=== PATIENT | female | born 1980 ===

== ENCOUNTER 2017-08-31 10:27 | Emergency (ER) | payer SELFPAY ==
[2017-08-31 10:43] VITALS: O2SAT 100
[2017-08-31] MEDS ORDERED: Sodium Chloride 0.9% 1,000 ML IV ONE (11:13)
[2017-08-31 11:23] LABS: BASO # 0.1 K/uL (0.0-0.2); BASO % 0.9 % (0.0-2.0); EOS # 0.1 K/uL (0.0-0.7); EOS % 1.3 % (0.0-4.0); HEMATOCRIT 32.4 % (34.0-47.0); LYMPH # 1.8 K/uL (1.0-4.3); LYMPH % 29.4 % (20.0-40.0); MEAN CELL VOLUME 65.8 fL (81.0-99.0); MEAN CORPUSCULAR HEMOGLOBIN 20.4 pg (27.0-31.0); MEAN PLATELET VOLUME 9.6 fL (7.2-11.7); MONO # 0.6 K/uL (0.0-0.8); MONO % 9.9 % (0.0-10.0); RED CELL DISTRIBUTION WIDTH 17.2 % (11.5-14.5); WHITE BLOOD COUNT 6.1 K/uL (4.8-10.8)
[2017-08-31] MEDS ORDERED: Sodium Chloride 0.9% 1,000 ML ONE (11:26)
[2017-08-31 11:39] LABS: ALKALINE PHOSPHATASE 91 U/L (38-126); ALT/SGPT 45 U/L (9-52); AST/SGOT 33 U/L (14-36); BILIRUBIN,TOTAL 0.6 mg/dL (0.2-1.3); BLOOD UREA NITROGEN 10 mg/dL (7-17); CALCIUM 8.1 mg/dl (8.6-10.4); CARBON DIOXIDE 27 mmol/L (22-30); CHLORIDE 103 mmol/L (98-107); GFR AFRICAN-AMERICAN > 60; GLUCOSE,RANDOM 93 mg/dL (65-105); RBC URINE 1 /hpf (0-3); SODIUM 138 mmol/L (132-148); TOTAL PROTEIN 8.2 g/dL (6.3-8.3); URINE BACTERIA RARE (<OCC); URINE BILIRUBIN NEGATIVE (NEGATIVE); URINE BLOOD NEGATIVE (NEGATIVE); URINE COLOR Yellow (YELLOW); URINE GLUCOSE (UA) NORMAL (Normal); URINE KETONE NEGATIVE (NEGATIVE); URINE LEUKOCYTE ESTERASE NEG Leu/uL (Negative); URINE PROTEIN NEGATIVE (NEGATIVE); URINE UROBILINOGEN NORMAL mg/dL (0.2-1.0); WBC URINE < 1 /hpf (0-5)
--- NOTE | 2017-08-31 12:37 | US ---
EXAM: US Abdomen Limited, Right Upper Quadrant CLINICAL HISTORY: 37 years old, female; Pain; Abdominal pain; Generalized; Prior surgery; Surgery date: 3-7 days post-operative; Surgery type: Gallbladder; Additional info: Ruq pain, R/O cbd stone TECHNIQUE: Real-time ultrasound of the right upper quadrant with image documentation. 41 images are submitted. COMPARISON: No relevant prior studies available. FINDINGS: Artifacts: Limited due to bowel gas shadowing. Limited due to shadowing from the ribs. Liver: The liver measures 13.98 cm. Limited evaluation of liver due to shadowing. There is hepatic pedal flow in the portal vein. Gallbladder: Cholecystectomy. Common bile duct: The common bile duct measures 3 mm which is normal. No stones. No dilation. Pancreas: The pancreas is not well-seen. Right kidney: The right kidney measures 11.88 x 4.10 x 4.78 cm. No stones. No hydronephrosis. Aorta: The proximal aorta measures 1.7 cm. Inferior vena cava: IVC is seen. IMPRESSION: No acute findings.
[2017-08-31] MEDS ORDERED: Magnesium Citrate Oral SOL (300 ml) PO ONE (13:42)
--- NOTE | 2017-08-31 13:47 | C.PDOC ---
History Of Present Illness 37-year-old female presents to the emergency department with complaints of epigastric abdominal pain for the past four days that radiates to the right upper-quadrant. She states pain has been gradually worsening, and is associated with constipation x3 days. Patient denies any nausea/vomiting, diarrhea, dysuria/hematuria, chest pain, SOB. Time Seen by Provider: 08/31/17 10:43 Chief Complaint (Nursing): Female Genitourinary History Per: Patient History/Exam Limitations: no limitations Onset/Duration Of Symptoms: Days Severity: Moderate Location Of Pain/Discomfort: Epigastric Quality Of Discomfort: "Pain" Past Medical History Reviewed: Historical Data, Nursing Documentation, Vital Signs Vital Signs: Last Vital Signs Temp 98.4 F 08/31/17 14:01 Pulse 71 08/31/17 14:01 Resp 20 08/31/17 14:01 BP 115/74 08/31/17 14:01 Pulse Ox 100 08/31/17 15:08 - Medical History PMH: Depression, Rheumatoid Arthritis Surgical History: Cholecystectomy Family History: States: No Known Family Hx - Social History Hx Tobacco Use: No Hx Alcohol Use: No Hx Substance Use: No - Immunization History Hx Tetanus Toxoid Vaccination: No Hx Influenza Vaccination: No Hx Pneumococcal Vaccination: No Review Of Systems Except As Marked, All Systems Reviewed And Found Negative. Constitutional: Negative for: Fever, Chills Cardiovascular: Negative for: Chest Pain, Palpitations Respiratory: Negative for: Cough, Shortness of Breath Gastrointestinal: Positive for: Abdominal Pain, Constipation. Negative for: Nausea, Vomiting, Diarrhea Genitourinary: Negative for: Dysuria, Hematuria, Vaginal Discharge, Vaginal Bleeding Musculoskeletal: Negative for: Back Pain Neurological: Negative for: Weakness, Numbness, Headache, Dizziness Physical Exam - Physical Exam Appears: Well, Non-toxic, No Acute Distress Skin: Warm, Dry, No Rash Head: Normacephalic Eye(s): bilateral: Normal Inspection Oral Mucosa: Moist Cardiovascular: Rhythm Regular Respiratory: Normal Breath Sounds, No Rales, No Rhonchi, No Wheezing Gastrointestinal/Abdominal: Bowel Sounds, Soft, Tenderness (epigastric>RUQ TTP, (-) McBurney's, (-)Steele's), No Guarding, No Rebound Extremity: Normal ROM Neurological/Psych: Oriented x3 ED Course And Treatment - Laboratory Results Result Diagrams: 08/31/17 11:16 08/31/17 11:16 O2 Sat by Pulse Oximetry: 100 (RA) Pulse Ox Interpretation: Normal - Other Rad obs series X-Ray: Interpreted by Me, Viewed By Me (contipation, no air fluid levels) Progress Note: Bloodwork, UA, Upreg and US ordered and reviewed. Patient treated with IV NS bolus, IV protonix. 14:00 - Patient reassessed, is resting comfortably and states she feels better. On exam, abdomen is soft and nontender. Patient given Rxs for magnesium citrate, colace, protonix. Patient instructed to drink plenty of fluids, increase fiber, and follow up with GI within 1 week. She understands she should return to ED if symptoms worsen. Reevaluation Time: 13:00 Reassessment Condition: Improved (Patient reassessed, states she feels better but still having some epigastric pain. IV toradol ordered. Obstructive series ordered.) Disposition Counseled Patient/Family Regarding: Studies Performed, Diagnosis, Need For Followup, Rx Given - Disposition Referrals: [facility] [Outside] Humble Roberts MD [Staff Provider] - Disposition: HOME/ ROUTINE Disposition Time: 14:00 Condition: STABLE Additional Instructions: FOLLOW UP WITH GI SPECIALIST WITHIN 1 WEEK USE MEDICATIONS DIRECTED DRINK PLENTY OF FLUIDS RETURN TO ER IF SYMPTOMS WORSEN Prescriptions: Docusate [Colace] 100 mg PO DAILY #30 cap Magnesium Citrate [Citrate of Mag] 300 ml PO ONCE PRN #1 bottle PRN Reason: Constipation Pantoprazole [Protonix EC Tab] 20 mg PO DAILY #30 ect Instructions: Constipation (ED), Epigastric Pain (ED) Forms: [employer] (Georgian) Print Language: YAKUT - Clinical Impression Clinical Impression: Epigastric abdominal pain, Constipation - Scribe Statement The provider has reviewed the documentation as recorded by the Scribe (Tracee Lenz) All medical record entries made by the Scribe were at my direction and personally dictated by me. I have reviewed the chart and agree that the record accurately reflects my personal performance of the history, physical exam, medical decision making, and the department course for this patient. I have also personally directed, reviewed, and agree with the discharge instructions and disposition.
[2017-08-31] MEDS ORDERED: Magnesium Citrate Oral SOL (300 ml) ONE (13:55)
[2017-08-31 14:02] VITALS: BP 115/74; PULSE 71; RESP 20; TEMP 98.4
--- NOTE | 2017-08-31 15:10 | RAD ---
Abdomen four views History: Constipation. Comparison: None available. Findings: Mild venous congestion. Bibasilar breast and nipple shadows. Moderate fecal retention in the colon. Relative paucity of small bowel gas. Surgical clips in the right upper abdomen. Calcified phleboliths pelvis. Degenerative changes in the spine. Impression: Moderate fecal retention in the colon.
== END 2017-08-31 14:22 | disposition home or self-care (01) ==
LOC: C.ER 10:27
DX: K59.00 Constipation, unspecified (principal); R10.13 Epigastric pain
CPT/HCPCS: 74022; 76705; 80053; 81001; 83690; 84703; 85025; 96361; 96374; 96375; 99284; C9113; J1885; J7040

== ENCOUNTER 2018-02-13 19:57 | Emergency (ER) | payer MEDICAID ==
[2018-02-13 20:07] VITALS: BP 138/89; PULSE 103; RESP 16; TEMP 98.7; O2SAT 100
--- NOTE | 2018-02-13 20:37 | C.PDOC ---
History Of Present Illness 37 year old male comes in for evaluation of left-sided neck pain gradually developed since yesterday. Pt reports, pain is localized over Left sided neck " feel so tight from head down to upper back". Pt admits, previous hx of neck pain. Pt denies known trauma or injury, chills, severe headache, vertigo, dizziness, visual changes, focal deficits, CP, SOB, abd. pain, N/V, denies weakness, to B/L UEs extr. Ambulate to Ed for evaluation, appears in pain. Time Seen by Provider: 02/13/18 20:16 Chief Complaint (Nursing): Medical Clearance History Per: Patient History/Exam Limitations: no limitations Onset/Duration Of Symptoms: Days Past Medical History Reviewed: Historical Data, Nursing Documentation, Vital Signs Vital Signs: Last Vital Signs Temp 98.7 F 02/13/18 20:03 Pulse 103 H 02/13/18 20:03 Resp 16 02/13/18 20:03 BP 138/89 02/13/18 20:03 Pulse Ox 100 02/13/18 20:44 - Medical History PMH: Depression, Rheumatoid Arthritis Surgical History: Cholecystectomy Family History: States: No Known Family Hx - Social History Hx Tobacco Use: No Hx Alcohol Use: No Hx Substance Use: No - Immunization History Hx Tetanus Toxoid Vaccination: No Hx Influenza Vaccination: No Hx Pneumococcal Vaccination: No Review Of Systems Constitutional: Negative for: Chills Musculoskeletal: Positive for: Neck Pain, Back Pain (left-sided) Neurological: Negative for: Weakness, Dizziness, Other (trauma) Physical Exam - Physical Exam Appears: Well, Non-toxic, No Acute Distress Skin: Normal Color, Warm, Dry, No Rash, No Ecchymosis Head: Normacephalic Eye(s): bilateral: PERRL Nose: No Flaring, No Discharge, No Deformity, No Tenderness Oral Mucosa: Moist Throat: No Drooling Neck: Decreased ROM (to head rotation due to pain), Trachea Midline, No Midline Cervical Tenderness, No Step Off Deformity, Supple, Other (diffuse left sided cervical tenderness overlying trapezium muscle with moderate muscle spasm., extend down to Left upper back area. No skin changes. no palpable defomrity.) Chest: Symmetrical, No Deformity, No Tenderness Respiratory: No Decreased Breath Sounds, No Accessory Muscle Use, No Stridor, No Wheezing Gastrointestinal/Abdominal: Soft, No Tenderness, No Distention, No Guarding Extremity: Normal ROM, No Tenderness, No Deformity, No Swelling Neurological/Psych: Oriented x3, Normal Speech, Normal Motor, Normal Sensation, Normal Reflexes ED Course And Treatment O2 Sat by Pulse Oximetry: 100 (RA) Pulse Ox Interpretation: Normal Progress Note: On re-evaluation, pt is afebrile, hemodynamicaly stable. Non- toxic. Pt reports, moderate improvemnet after ED treatment, taye to rotate head more with some painful discomfort. PulsEOx 100% RA. head: AT/NC. neck: Supple, (+) exam c/w left sided trapezium muscle spasm. No midline tenderness, ( -) JVD, (-) carotid bruits B/L. ENT: no acute findings. Lungs: CTA B/L, BS equal B/L. Neuorlogicaly intact. Soft C-collar applied to neck. Pt advised. ref. to f/u with PMD in 2-3 days for re-evaluation. return to ED if any worsening or new changes. Disposition Counseled Patient/Family Regarding: Diagnosis, Need For Followup, Rx Given - Disposition Disposition: HOME/ ROUTINE Disposition Time: 21:02 Condition: STABLE Additional Instructions: Soft C-collar for 3-4 days Take medication as prescribed for pain Follow up with PMD in 2-3 days for re-evaluation. return to ED if any worsening or new changes. 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 - Scribe Statement The provider has reviewed the documentation as recorded by the Edie Monique
== END 2018-02-13 21:30 | disposition home or self-care (01) ==
LOC: C.ER 19:57
DX: M43.6 Torticollis (principal)

== ENCOUNTER 2018-03-30 19:50 | Emergency (ER) | payer MEDICAID ==
[2018-03-30 20:00] VITALS: BP 102/64; PULSE 70; RESP 14; TEMP 98.6; O2SAT 98
--- NOTE | 2018-03-30 20:29 | C.PDOC ---
History Of Present Illness 37 y/o female presents to the ER complaining of left lower back pain intermittently for 1 week. Pain is now radiating to the left buttocks and thigh , with tingling to the left toes. No trauma or fall associated. Patient states she was moving furniture from her daughters room, and is unsure if she strained her back. Otherwise patient denies any numbness, extremity weakness, fever, dysuria, frequency, or incontinence of bowel/bladder. Time Seen by Provider: 03/30/18 20:11 Chief Complaint (Nursing): Back Pain History Per: Patient History/Exam Limitations: no limitations Onset/Duration Of Symptoms: Days Current Symptoms Are (Timing): Still Present Past Medical History Reviewed: Historical Data, Nursing Documentation, Vital Signs Vital Signs: Last Vital Signs Temp 98.6 F 03/30/18 19:56 Pulse 70 03/30/18 19:56 Resp 14 03/30/18 19:56 BP 102/64 03/30/18 19:56 Pulse Ox 98 03/30/18 20:29 - Medical History PMH: Depression, Rheumatoid Arthritis Surgical History: Cholecystectomy Family History: States: No Known Family Hx - Social History Hx Tobacco Use: No Hx Alcohol Use: No Hx Substance Use: No - Immunization History Hx Tetanus Toxoid Vaccination: No Hx Influenza Vaccination: No Hx Pneumococcal Vaccination: No Review Of Systems Except As Marked, All Systems Reviewed And Found Negative. Constitutional: Negative for: Fever Genitourinary: Negative for: Dysuria, Frequency, Incontinence Musculoskeletal: Positive for: Back Pain, Leg Pain Neurological: Positive for: Other (tingling to left toes). Negative for: Weakness, Numbness Physical Exam - Physical Exam Appears: Non-toxic, No Acute Distress Skin: Normal Color, Warm, Dry Head: Atraumatic, Normacephalic Eye(s): bilateral: Normal Inspection Nose: Normal Oral Mucosa: Moist Neck: Normal ROM, Supple Chest: Symmetrical Cardiovascular: Rhythm Regular, No Murmur Respiratory: Normal Breath Sounds, No Rales, No Rhonchi, No Wheezing Back: No Vertebral Tenderness, Paraspinal Tenderness (to left paralumbar region) , Straight Leg Raising (Reproducible pain at 40 degrees on the left) Extremity: Bilateral: Atraumatic, Normal Color And Temperature Pulses: Left Dorsalis Pedis: Normal, Right Dorsalis Pedis: Normal Neurological/Psych: Oriented x3, Normal Speech, Normal Motor, Normal Sensation ED Course And Treatment O2 Sat by Pulse Oximetry: 98 (RA) Pulse Ox Interpretation: Normal Progress Note: Patient treated with IM Toradol and PO Flexeril. On reevaluation , patient reports improvement in pain and is ambulatory with steady gait. She will be discharged home with prescriptions for flexeril and advised to follow up with PMD. 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 - Scribe Statement The provider has reviewed the documentation as recorded by the Scribe (Siobhan Proctor) All medical record entries made by the Scribe were at my direction and personally dictated by me. I have reviewed the chart and agree that the record accurately reflects my personal performance of the history, physical exam, medical decision making, and the department course for this patient. I have also personally directed, reviewed, and agree with the discharge instructions and disposition.
== END 2018-03-30 20:39 | disposition home or self-care (01) ==
LOC: C.ER 19:50
DX: M54.32 Sciatica, left side (principal)
CPT/HCPCS: 96372; 99283; J1885

== ENCOUNTER 2018-04-12 22:16 | Emergency (ER) | payer MEDICAID ==
[2018-04-12 22:38] VITALS: BP 113/74; PULSE 94; TEMP 98.3; O2SAT 100
[2018-04-12 23:31] LABS: SQUAMOUS EPITHIAL 1 /hpf (0-5); URINE BACTERIA RARE (<OCC); URINE BILIRUBIN NEGATIVE (NEGATIVE); URINE BLOOD 1+ (NEGATIVE); URINE CLARITY Clear (Clear); URINE COLOR Yellow (YELLOW); URINE GLUCOSE (UA) NORMAL (Normal); URINE LEUKOCYTE ESTERASE NEG Leu/uL (Negative); URINE PROTEIN NEGATIVE (NEGATIVE); URINE UROBILINOGEN NORMAL mg/dL (0.2-1.0)
--- NOTE | 2018-04-13 00:11 | C.PDOC ---
History Of Present Illness 37yo female, comes to ER with complaints of left lower back pain x 3 weeks. She was seen in this ER on 03/30 and was treated and discharged with Flexeril and motrin; patient states she has been taking the medications with no relief of symptoms. She denies any new trauma, weakness, numbness, bowel/bladder incontinence or saddle anesthesia. Time Seen by Provider: 04/12/18 22:47 Chief Complaint (Nursing): Back Pain History Per: Patient History/Exam Limitations: no limitations Onset/Duration Of Symptoms: Persistent Current Symptoms Are (Timing): Still Present Quality Of Discomfort: "Pain" Associated Symptoms: denies: Incontinence, New Weakness, New Numbness Exacerbating Factor(s): Sitting Past Medical History Reviewed: Historical Data, Nursing Documentation, Vital Signs Vital Signs: Last Vital Signs Temp 98.3 F 04/12/18 22:33 Pulse 94 H 04/12/18 22:33 Resp 20 04/13/18 00:16 BP 113/74 04/12/18 22:33 Pulse Ox 100 04/13/18 02:19 - Medical History PMH: Depression, Rheumatoid Arthritis Surgical History: Cholecystectomy (2012) Family History: States: No Known Family Hx - Social History Hx Tobacco Use: No Hx Alcohol Use: No Hx Substance Use: No - Immunization History Hx Tetanus Toxoid Vaccination: No Hx Influenza Vaccination: Yes Hx Pneumococcal Vaccination: No Review Of Systems Genitourinary: Negative for: Incontinence Musculoskeletal: Positive for: Back Pain Neurological: Negative for: Weakness, Numbness Physical Exam - Physical Exam Appears: Non-toxic Skin: Normal Color Head: Normacephalic Eye(s): bilateral: Normal Inspection Neck: Normal ROM, Supple Chest: Symmetrical Cardiovascular: Rhythm Regular Respiratory: Normal Breath Sounds Back: No CVA Tenderness, No Vertebral Tenderness, Paraspinal Tenderness (left paralumbar), Straight Leg Raising (+ left leg at 40 degrees) Extremity: Normal ROM, No Deformity Pulses: Left Dorsalis Pedis: Normal, Right Dorsalis Pedis: Normal Neurological/Psych: Oriented x3, Normal Speech, Normal Cognition, Normal Motor, Normal Sensation Gait: Steady ED Course And Treatment O2 Sat by Pulse Oximetry: 100 (RA) Pulse Ox Interpretation: Normal Progress Note: XR LS spine and UA ordered. Patient given Valium and Motrin. XR reviewed with no fractures/dislocations. UA shows no clinically significant abnormalities. Patient reports moderate improvement in back pain. Patient is stable for discharge home, instructed to follow up with PMD in 2-3 days. 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 - Scribe Statement The provider has reviewed the documentation as recorded by the Edie Wilkerson Provider Attestation: All medical record entries made by the Edie were at my direction and personally dictated by me. I have reviewed the chart and agree that the record accurately reflects my personal performance of the history, physical exam, medical decision making, and the department course for this patient. I have also personally directed, reviewed, and agree with the discharge instructions and disposition.
[2018-04-13 00:17] VITALS: RESP 20
--- NOTE | 2018-04-13 09:28 | RAD ---
Date of service: 04/12/2018 PROCEDURE: Radiographs of the Lumbar Spine. HISTORY: pain to lower back- persistent COMPARISON: No prior. FINDINGS: BONES: Normal alignment. No listhesis. No fracture. DISC SPACES: Unremarkable. OTHER FINDINGS: None. IMPRESSION: Unremarkable radiographs of the lumbar spine.
== END 2018-04-13 00:16 | disposition home or self-care (01) ==
LOC: C.ER 22:16
DX: M54.5 Low back pain (principal)
CPT/HCPCS: 72100; 81001; 96372; 99284; J1885

== ENCOUNTER 2018-08-12 09:01 | Inpatient (IN) | payer MEDICAID ==
[2018-08-12 09:41] LABS: HCG,QUALITATIVE URINE NEGATIVE (NEGATIVE)
[2018-08-12 09:42] LABS: SQUAMOUS EPITHIAL 2 /hpf (0-5); URINE BILIRUBIN NEGATIVE (NEGATIVE); URINE BLOOD NEGATIVE (NEGATIVE); URINE CLARITY Clear (Clear); URINE COLOR Yellow (YELLOW); URINE GLUCOSE (UA) NORMAL (Normal); URINE LEUKOCYTE ESTERASE NEG Leu/uL (Negative); URINE PROTEIN NEGATIVE (NEGATIVE); URINE UROBILINOGEN NORMAL mg/dL (0.2-1.0)
--- NOTE | 2018-08-12 10:51 | C.PDOC ---
History Of Present Illness Patient is a 38 y/o F with PMHx of Wilkerson's palsy, migraines, RA, unknown pituitary issue who presents today for 3 days of epigastric pain that radiates to the right side of the mid back. Of note patient was treated for positive Strep last week with Amoxocillin and went back to the doctor yesterday and was found to have positive flu and given Tamiflu. Patient says the abdominal pain is sharp in nature and rates is 10/10. Patient says the pain is worse with movement and deep breathing. Patient has nausea but no vomiting and is able to tolerate diet. Patient also admits to burning with urination for the past 4 days. Patient denies any constipation or diarrhea. Patient denies any alcohol use. Patient denies any recent travel. <Monica Garay - Last Filed: 08/13/18 16:27> History Per: Patient History/Exam Limitations: no limitations Onset/Duration Of Symptoms: Days Current Symptoms Are (Timing): Worse Severity: Severe Pain Scale Rating Of: 10 Location Of Pain/Discomfort: Epigastric Radiation Of Pain To:: Back Quality Of Discomfort: Sharp Associated Symptoms: Fever, Chills, Nausea, Loss Of Appetite, Back Pain, Urinary Symptoms. denies: Vomiting Exacerbating Factors: Movement, Deep Breaths Alleviating Factors: None Last Bowel Movement: Today Recent travel outside of the [place]: No Additional History Per: Patient Abnormal Vaginal Bleeding: Yes Last Menstral Period: 2 weeks ago <Monica Garay - Last Filed: 08/13/18 16:27> <Elsie Gonzalez - Last Filed: 08/17/18 07:39> Time Seen by Provider: 08/12/18 09:34 Chief Complaint (Nursing): Abdominal Pain Past Medical History Vital Signs: Last Vital Signs Temp 100.4 F H 08/12/18 09:10 Pulse 125 H 08/12/18 09:10 Resp 20 08/12/18 09:10 BP 114/77 08/12/18 09:10 Pulse Ox 100 08/12/18 09:10 - Medical History PMH: Depression, Rheumatoid Arthritis Surgical History: Cholecystectomy (2012), Family History: States: CAD, Diabetes, Other Other Family History: Mom: HTN, hypothyroid, RA - Social History Hx Tobacco Use: No Hx Alcohol Use: No Hx Substance Use: No - Immunization History Hx Tetanus Toxoid Vaccination: No Hx Influenza Vaccination: Yes Hx Pneumococcal Vaccination: No <Monica Garay - Last Filed: 08/13/18 16:27> Vital Signs: Last Vital Signs Temp 99.6 F 08/12/18 12:21 Pulse 95 H 08/12/18 12:21 Resp 18 08/12/18 12:21 BP 101/68 08/12/18 12:21 Pulse Ox 100 08/12/18 15:10 <Elsie Gonzalez - Last Filed: 08/17/18 07:39> Review Of Systems Constitutional: Positive for: Fever, Chills Respiratory: Positive for: Shortness of Breath Gastrointestinal: Positive for: Nausea, Abdominal Pain. Negative for: Vomiting, Diarrhea, Constipation Genitourinary: Positive for: Dysuria. Negative for: Frequency, Hematuria Musculoskeletal: Positive for: Back Pain <Monica GarayAnnika - Last Filed: 08/13/18 16:27> Physical Exam - Physical Exam Appears: Non-toxic, In Acute Distress Skin: Normal Color Head: Atraumatic <Monica GarayAnnika - Last Filed: 08/13/18 16:27> ED Course And Treatment - Laboratory Results Result Diagrams: 08/12/18 11:12 08/12/18 11:12 Urine POC: Negative O2 Sat by Pulse Oximetry: 100 <Monica Garay - Last Filed: 08/13/18 16:27> - Laboratory Results Result Diagrams: 08/16/18 07:12 08/17/18 06:13 - CT Scan/US US-Abdomen Other Rad Studies (CT/US): Read By Radiologist, Radiology Report Reviewed CT/US Interpretation: Right upper quadrant abdominal ultrasound. History: Abdominal pain. COMPARISON: 08/31/2017. TECHNIQUE: Real-time sonography was performed through the right upper quadrant of the abdomen. Findings: Liver: 15.7 centimeters in length. Increased echogenicity of the hepatic parenchymal cortex suggestive for fatty infiltration versus hepatic parenchymal disease. Clinical correlation. Gallbladder: Prior cholecystectomy. Common bile duct measures 4 millimeters, mildly prominent. Limited visualization of the pancreas. Visualized aorta and IVC are grossly preserved. Right kidney: 11.3 x 4.5 x 5.8 centimeters. No calculi or hydronephrosis. Impression: 1. Increased echogenicity of the hepatic parenchymal cortex suggestive for fatty infiltration versus hepatic parenchymal disease. Clinical correlation. 2. Prior cholecystectomy. 3. Mild prominence of the common bile duct measuring up to 4 millimeters. Clinical correlation. 4. Limited visualization of the pancreas. <Elsie Gonzalez - Last Filed: 08/17/18 07:39> Medical Decision Making Medical Decision Making: Labs show elevated LFTs, Abdominal u/s ordered which showed increased echogenicity of hepatic parenchymal cortex - fatty infiltrate vs hepatic parenchymal disease, mild prominence of bile duct- 4mm 13:00 patient still complains of abdominal pain. patient denies any nausea, vomiting. Plan: admitted to hospital for further workup. GI consulted, Dr. Roberts. 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 ALEX has examined the patient and agrees with the treatment plan. <Monica Garay - Last Filed: 08/13/18 16:27> - PA / CASING COOKER / Resident Statement ALEX has examined the patient and agrees with the treatment plan. <Elsie Gonzalez - Last Filed: 08/17/18 07:39>
[2018-08-12] MEDS ORDERED: Sodium Chloride 0.9% 1,000 ML IV ONE (11:12)
[2018-08-12 11:15] LABS: BASO % 0.3 % (0.0-2.0); EOS % 0.1 % (0.0-4.0); HEMOGLOBIN 11.9 g/dL (11.0-16.0); LYMPH # 0.8 K/uL (1.0-4.3); LYMPH % 19.6 % (20.0-40.0); MEAN CELL VOLUME 73.6 fL (81.0-99.0); MEAN CORPUSCULAR HEMOGLOBIN 23.6 pg (27.0-31.0); MEAN CORPUSCULAR HGB CONC 32.1 g/dL (33.0-37.0); MEAN PLATELET VOLUME 8.9 fL (7.2-11.7); MONO # 0.4 K/uL (0.0-0.8); MONO % 8.6 % (0.0-10.0); NEUT # 3.1 K/uL (1.8-7.0); NEUT % 71.4 % (50.0-75.0); RBC 5.05 Mil/uL (3.80-5.20); RED CELL DISTRIBUTION WIDTH 16.5 % (11.5-14.5); WHITE BLOOD COUNT 4.3 K/uL (4.8-10.8)
[2018-08-12] MEDS ORDERED: Sodium Chloride 0.9% 1,000 ML ONE (11:24)
[2018-08-12 11:40] LABS: ALB/GLOB RATIO 0.9 (1.0-2.1); ALBUMIN 4.3 g/dL (3.5-5.0); ALT/SGPT 118 U/L (9-52); AST/SGOT 132 U/L (14-36); GFR NON-AFRICAN AMERICAN > 60; LIPASE 191 U/L (23-300)
[2018-08-12 11:49] LABS: BLOOD UREA NITROGEN 8 mg/dL (7-17); CALCIUM 8.9 mg/dl (8.6-10.4)
--- NOTE | 2018-08-12 14:14 | US ---
Right upper quadrant abdominal ultrasound History: Abdominal pain. COMPARISON: 08/31/2017 TECHNIQUE: Real-time sonography was performed through the right upper quadrant of the abdomen. Findings: Liver: 15.7 centimeters in length. Increased echogenicity of the hepatic parenchymal cortex suggestive for fatty infiltration versus hepatic parenchymal disease. Clinical correlation. Gallbladder: Prior cholecystectomy. Common bile duct measures 4 millimeters, mildly prominent. Limited visualization of the pancreas. Visualized aorta and IVC are grossly preserved. Right kidney: 11.3 x 4.5 x 5.8 centimeters. No calculi or hydronephrosis. Impression: 1. Increased echogenicity of the hepatic parenchymal cortex suggestive for fatty infiltration versus hepatic parenchymal disease. Clinical correlation. 2. Prior cholecystectomy. 3. Mild prominence of the common bile duct measuring up to 4 millimeters. Clinical correlation. 4. Limited visualization of the pancreas.
--- NOTE | 2018-08-12 15:54 | CP.PCM.CON ---
<Juan Chairez - Last Filed: 08/12/18 15:43> History of Present Illness - History of Present Illness History of Present Illness: GI Fellow PGY4, Consult note. Evonne Abraham is a 38F, hx of RA on Humira presenting with acute abdominal pain. The pain is severe, epigastric, constant, made worse with food. She denies vomiting, diarrhea, blood in stool. Nothing seems to make the pain better. She has not tried PPI therapy. Importantly, she has recently been on Amoxicillin for strep throat, started 1 week ago. She started Tamiflu yesterday. She has been taking Tylenol once per da y for the last week. 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 Last labs were in December and she stated she had abnormal liver tests at that time, but could not clarify in more detail. PMHx - as above PSHx - Cholecytectomy, FMHx - unremarkable SocHx - Denies alcohol or smoking. 12pt ROS completed and negative except for above. Past Patient History - Past Social History Smoking Status: Never Smoked - MUSCULOSKELETAL/RHEUMATOLOGICAL Hx Rheumatoid Arthritis: Yes - PSYCHIATRIC Hx Depression: Yes Hx Substance Use: No - SURGICAL HISTORY Hx Cholecystectomy: Yes (2012) - ANESTHESIA Hx Anesthesia: Yes Hx Anesthesia Reactions: No Meds Allergies/Adverse Reactions: Allergies Allergy/AdvReac Type Severity Reaction Status Date / Time No Known Allergies Allergy Verified 08/12/18 09:13 Physical Exam - Constitutional Appears: Non-toxic, No Acute Distress - Eye Exam Eye Exam: EOMI, Normal appearance - ENT Exam ENT Exam: Mucous Membranes Moist, Normal Exam - Respiratory Exam Respiratory Exam: Clear to Auscultation Bilateral, NORMAL BREATHING PATTERN - Cardiovascular Exam Cardiovascular Exam: Tachycardia, +S1, +S2 - GI/Abdominal Exam GI & Abdominal Exam: Normal Bowel Sounds, Soft, Tenderness. absent: Organomegaly - Extremities Exam Extremities exam: Positive for: normal inspection - Neurological Exam Neurological exam: Alert, CN II-XII Intact, Oriented x3 - Psychiatric Exam Psychiatric exam: Normal Affect, Normal Mood - Skin Skin Exam: Dry, Normal Color Results - Vital Signs Recent Vital Signs: Last Vital Signs Temp 99.6 F 08/12/18 12:21 Pulse 95 H 08/12/18 12:21 Resp 18 08/12/18 12:21 BP 101/68 08/12/18 12:21 Pulse Ox 100 08/12/18 15:10 - Labs Result Diagrams: 08/12/18 11:12 08/12/18 11:12 Labs: Laboratory Results - last 24 hr 08/12/18 08/12/18 08/12/18 09:31 11:12 11:12 WBC 4.3 L RBC 5.05 Hgb 11.9 Hct 37.2 MCV 73.6 L D MCH 23.6 L MCHC 32.1 L RDW 16.5 H Plt Count 203 MPV 8.9 Neut % (Auto) 71.4 Lymph % (Auto) 19.6 L [place] % (Auto) 8.6 Eos % (Auto) 0.1 Baso % (Auto) 0.3 Neut # (Auto) 3.1 Lymph # (Auto) 0.8 L [place] # (Auto) 0.4 Eos # (Auto) 0.0 Baso # (Auto) 0.0 Sodium 133 Potassium 4.2 Chloride 100 Carbon Dioxide 25 Anion Gap 12 BUN 8 Creatinine 0.6 L Est GFR ( Amer) > 60 Est GFR (Non-Af Amer) > 60 Random Glucose 99 Calcium 8.9 Total Bilirubin 0.5 AST 132 H D ALT 118 H D Alkaline Phosphatase 205 H D Total Protein 9.2 H Albumin 4.3 Globulin 4.9 H Albumin/Globulin Ratio 0.9 L Lipase 191 Urine Color Yellow Urine Clarity Clear Urine pH 5.0 Ur Specific [place] 1.015 Urine Protein Negative Urine Glucose (UA) Normal Urine Ketones Negative Urine Blood Negative Urine Nitrate Negative Urine Bilirubin Negative Urine Urobilinogen Normal Ur Leukocyte Esterase Neg Urine WBC (Auto) 1 Urine RBC (Auto) < 1 Ur Squamous Epith Cells 2 Urine HCG, Qual Negative Assessment & Plan - Assessment and Plan (Free Text) Assessment: #Abdominal pain #Elevated liver tests #Influenza #RA on Humira PLAN: -Labs and imaging reviewed. U/S with CBD 4mm. Echogenic liver. -Liver test likely elevated due to either recent amoxicillin use vs influenza -Supportive care with IVF. Avoid hepatotoxic medications. -Trend Liver tests -Check hepatitis panel, anti-SM, anti-mitochondrial Abs. -Full liquid diet - Date & Time Date: 08/12/18 Time: 16:03 <Humble Roberts - Last Filed: 08/12/18 16:21> Results - Vital Signs Recent Vital Signs: Last Vital Signs Temp 99.6 F 08/12/18 12:21 Pulse 95 H 08/12/18 12:21 Resp 18 08/12/18 12:21 BP 101/68 08/12/18 12:21 Pulse Ox 100 08/12/18 15:53 - Labs Result Diagrams: 08/12/18 11:12 08/12/18 11:12 Labs: Laboratory Results - last 24 hr 08/12/18 08/12/18 08/12/18 09:31 11:12 11:12 WBC 4.3 L RBC 5.05 Hgb 11.9 Hct 37.2 MCV 73.6 L D MCH 23.6 L MCHC 32.1 L RDW 16.5 H Plt Count 203 MPV 8.9 Neut % (Auto) 71.4 Lymph % (Auto) 19.6 L [place] % (Auto) 8.6 Eos % (Auto) 0.1 Baso % (Auto) 0.3 Neut # (Auto) 3.1 Lymph # (Auto) 0.8 L [place] # (Auto) 0.4 Eos # (Auto) 0.0 Baso # (Auto) 0.0 Sodium 133 Potassium 4.2 Chloride 100 Carbon Dioxide 25 Anion Gap 12 BUN 8 Creatinine 0.6 L Est GFR ( Amer) > 60 Est GFR (Non-Af Amer) > 60 Random Glucose 99 Calcium 8.9 Total Bilirubin 0.5 AST 132 H D ALT 118 H D Alkaline Phosphatase 205 H D Total Protein 9.2 H Albumin 4.3 Globulin 4.9 H Albumin/Globulin Ratio 0.9 L Lipase 191 Urine Color Yellow Urine Clarity Clear Urine pH 5.0 Ur Specific [place] 1.015 Urine Protein Negative Urine Glucose (UA) Normal Urine Ketones Negative Urine Blood Negative Urine Nitrate Negative Urine Bilirubin Negative Urine Urobilinogen Normal Ur Leukocyte Esterase Neg Urine WBC (Auto) 1 Urine RBC (Auto) < 1 Ur Squamous Epith Cells 2 Urine HCG, Qual Negative Attending/Attestation - Attestation I have personally seen and examined this patient.: Yes I have fully participated in the care of the patient.: Yes I have reviewed all pertinent clinical information: Yes Notes (Text): 08/12/18 16:16 I have seen and examined patient with GI fellow. Agree with above documentation with the following additions. In brief, this is a 38 year old female with history of arthritis on humira who presents to hospital with complaint of abdominal pain for the past 3 days. She was recently treated with high dose amoxicillin for 6 consecutive days and was also diagnosed with influenza currently on tamiflu. She describes sharp epigastric pain, worse after meal consumption during this time period. The pain is associated with nausea but she denies vomiting, weight loss, NSAID use, melena, or change in bowel habits. She denies prior history of liver abnormalities or excessive tylenol use. No prior endoscopic evaluation. Rheumatoid arthritis on adalimumab Abdominal pain Influenza Transaminitis - Full liquid diet as tolerated - Obtain viral hepatitis panel and autoimmune panel, continue to monitor LFTs - Etiology of elevated LFTs also potentially drug related given recent amoxicillin use - Continue with supportive care, IVF hydration therapy - Begin once daily PPI - Will continue to monitor patient clinical course
[2018-08-12 16:48] LABS: INR 1.2; PROTHROMBIN TIME 13.2 SECONDS (9.7-12.2)
[2018-08-12] MEDS: Pantoprazole 40 mg EC Tab PO SCH (16:52)
[2018-08-12] MEDS ORDERED: Pantoprazole 40 mg EC Tab PO ONE (17:15)
--- NOTE | 2018-08-12 19:15 | CP.PCM.HP ---
History of Present Illness - History of Present Illness History of Present Illness: Patient is a 38 y/o F with PMHx of Wilkerson's palsy, migraines, RA, unknown pituitary issue who presents today for 3 days of epigastric pain that radiates to the right side of the mid back. Of note patient was treated for positive Strep last week with Amoxocillin and went back to the doctor yesterday and was found to have positive flu and given Tamiflu. Patient says the abdominal pain is sharp in nature and rates is 10/10. Patient says the pain is worse with movement and deep breathing. Patient has nausea but no vomiting and is able to tolerate diet. Patient also admits to burning with urination for the past 4 days IN ER , ABN LFT AND DILATED CBD ON HUMIRA Present on Admission - Present on Admission Any Indicators Present on Admission: No Review of Systems - Review of Systems All systems: reviewed and no additional remarkable complaints except (N/V/ABD. PAIN) Past Patient History - Past Social History Smoking Status: Never Smoked - MUSCULOSKELETAL/RHEUMATOLOGICAL Hx Rheumatoid Arthritis: Yes - PSYCHIATRIC Hx Depression: Yes Hx Substance Use: No - SURGICAL HISTORY Hx Cholecystectomy: Yes (2012) - ANESTHESIA Hx Anesthesia: Yes Hx Anesthesia Reactions: No Meds Allergies/Adverse Reactions: Allergies Allergy/AdvReac Type Severity Reaction Status Date / Time No Known Allergies Allergy Verified 08/12/18 09:13 Physical Exam - Constitutional Appears: Well - Head Exam Head Exam: ATRAUMATIC, NORMAL INSPECTION, NORMOCEPHALIC - Eye Exam Eye Exam: EOMI, Normal appearance, PERRL Pupil Exam: NORMAL ACCOMODATION, PERRL - ENT Exam ENT Exam: Mucous Membranes Moist, Normal Exam - Neck Exam Neck exam: Positive for: Normal Inspection - Respiratory Exam Respiratory Exam: Clear to Auscultation Bilateral, NORMAL BREATHING PATTERN - Cardiovascular Exam Cardiovascular Exam: REGULAR RHYTHM - GI/Abdominal Exam GI & Abdominal Exam: Normal Bowel Sounds, Soft, Tenderness (EPIGASTRIC) - Rectal Exam Rectal Exam: Deferred - Extremities Exam Extremities exam: Positive for: normal inspection - Back Exam Back exam: NORMAL INSPECTION - Neurological Exam Neurological exam: Alert, CN II-XII Intact, Normal Gait, Oriented x3, Reflexes Normal - Psychiatric Exam Psychiatric exam: Normal Affect, Normal Mood - Skin Skin Exam: Dry, Intact, Normal Color, Warm Results - Vital Signs Recent Vital Signs: Last Vital Signs Temp 98.5 F 08/12/18 16:15 Pulse 101 H 08/12/18 16:15 Resp 18 08/12/18 16:15 BP 117/79 08/12/18 16:15 Pulse Ox 100 08/12/18 16:54 - Labs Result Diagrams: 08/12/18 11:12 08/12/18 11:12 Labs: Laboratory Results - last 24 hr 08/12/18 08/12/18 08/12/18 09:31 11:12 11:12 WBC 4.3 L RBC 5.05 Hgb 11.9 Hct 37.2 MCV 73.6 L D MCH 23.6 L MCHC 32.1 L RDW 16.5 H Plt Count 203 MPV 8.9 Neut % (Auto) 71.4 Lymph % (Auto) 19.6 L [place] % (Auto) 8.6 Eos % (Auto) 0.1 Baso % (Auto) 0.3 Neut # (Auto) 3.1 Lymph # (Auto) 0.8 L [place] # (Auto) 0.4 Eos # (Auto) 0.0 Baso # (Auto) 0.0 PT INR APTT Sodium 133 Potassium 4.2 Chloride 100 Carbon Dioxide 25 Anion Gap 12 BUN 8 Creatinine 0.6 L Est GFR ( Amer) > 60 Est GFR (Non-Af Amer) > 60 Random Glucose 99 Calcium 8.9 Total Bilirubin 0.5 AST 132 H D ALT 118 H D Alkaline Phosphatase 205 H D Total Protein 9.2 H Albumin 4.3 Globulin 4.9 H Albumin/Globulin Ratio 0.9 L Lipase 191 Urine Color Yellow Urine Clarity Clear Urine pH 5.0 Ur Specific [place] 1.015 Urine Protein Negative Urine Glucose (UA) Normal Urine Ketones Negative Urine Blood Negative Urine Nitrate Negative Urine Bilirubin Negative Urine Urobilinogen Normal Ur Leukocyte Esterase Neg Urine WBC (Auto) 1 Urine RBC (Auto) < 1 Ur Squamous Epith Cells 2 Urine HCG, Qual Negative Acetaminophen 08/12/18 08/12/18 16:29 16:29 WBC RBC Hgb Hct MCV MCH MCHC RDW Plt Count MPV Neut % (Auto) Lymph % (Auto) [place] % (Auto) Eos % (Auto) Baso % (Auto) Neut # (Auto) Lymph # (Auto) [place] # (Auto) Eos # (Auto) Baso # (Auto) PT 13.2 H INR 1.2 APTT 27 Sodium Potassium Chloride Carbon Dioxide Anion Gap BUN Creatinine Est GFR ( Amer) Est GFR (Non-Af Amer) Random Glucose Calcium Total Bilirubin AST ALT Alkaline Phosphatase Total Protein Albumin Globulin Albumin/Globulin Ratio Lipase Urine Color Urine Clarity Urine pH Ur Specific [place] Urine Protein Urine Glucose (UA) Urine Ketones Urine Blood Urine Nitrate Urine Bilirubin Urine Urobilinogen Ur Leukocyte Esterase Urine WBC (Auto) Urine RBC (Auto) Ur Squamous Epith Cells Urine HCG, Qual Acetaminophen < 10.0 L Assessment & Plan (1) Influenza Status: Acute (2) Epigastric abdominal pain Status: Acute
[2018-08-12] MEDS: Dextrose 5%/0.45% NS 1,000 ML IV SCH (19:35)
[2018-08-12 19:57] LABS: HEPATITIS B SURFACE AG Negative (NEGATIVE)
[2018-08-12 20:03] LABS: HEPATITIS A IGM NEGATIVE (NEGATIVE); HEPATITIS B CORE AB NEGATIVE (NEGATIVE)
[2018-08-12 20:14] LABS: HEPATITIS C ANTIBODY NEGATIVE (NEGATIVE)
[2018-08-12] MEDS: HYDROmorphone 1 mg/ml ISec IVP PRN (23:49)
[2018-08-13] MEDS: HYDROmorphone 1 mg/ml ISec IVP PRN (06:48)
[2018-08-13] MEDS: Dextrose 5%/0.45% NS 1,000 ML IV SCH ×3 (07:40→20:30)
[2018-08-13 07:50] LABS: ALB/GLOB RATIO 0.9 (1.0-2.1); ALBUMIN 3.9 g/dL (3.5-5.0); ALT/SGPT 101 U/L (9-52); AST/SGOT 114 U/L (14-36); BLOOD UREA NITROGEN 6 mg/dL (7-17); CALCIUM 8.5 mg/dl (8.6-10.4); GFR NON-AFRICAN AMERICAN > 60
--- NOTE | 2018-08-13 08:35 | CP.PCM.PN ---
<Juan Chairez - Last Filed: 08/13/18 14:53> Subjective - Date & Time of Evaluation Date of Evaluation: 08/13/18 Time of Evaluation: 08:32 - Subjective Subjective: Patient feels about the same today as she did yesterday. She still has pain around her upper abdomen and also her back on both sides. She is afeb, HDS. She tolerated her diet. She states she is hungry. No vomiting, diarrhea. Patient states she has taken iron supplements for heavy menses in the past. She also states she has seen [facility] after BMs a few times this past year. Again, she has not seen a GI specialist. She also admits some unintentional weight loss. Objective - Vital Signs/Intake and Output Vital Signs (last 24 hours): Temp Pulse Resp BP Pulse Ox 99.5 F 99 H 20 96/66 L 98 08/13/18 07:45 08/13/18 07:45 08/13/18 07:45 08/13/18 07:45 08/13/18 07:45 Intake and Output: 08/13/18 08/13/18 06:59 18:59 Intake Total 760 Balance 760 - Medications Medications: Current Medications Hydromorphone HCl (Dilaudid) 1 mg IVP Q4H PRN PRN Reason: Pain, moderate (4-7) Last Admin: 08/13/18 06:48 Dose: 1 mg Dextrose/Sodium Chloride (Dextrose 5%/0.45% Ns 1000 Ml) 1,000 mls @ 80 mls/hr IV .[id number] [facility] Last Admin: 08/13/18 07:40 Dose: Not Given Influenza Virus Vaccine (Fluzone Quad [id number]) 60 mcg IM .ONCE ONE Stop: 08/15/18 10:06 Pantoprazole Sodium (Protonix Ec Tab) 40 mg PO DAILY [facility] Last Admin: 08/12/18 16:52 Dose: 40 mg Pneumococcal Polyvalent Vaccine (Pneumovax 23 Vaccine) 0.5 ml IM .ONCE ONE Stop: 08/15/18 10:01 Promethazine HCl/Dextromethorphan (Phenergan Dm Syrup) 10 ml PO Q8H PRN PRN Reason: Cough and congestion - Labs Labs: 08/12/18 11:12 08/13/18 07:06 PT 13.2 SECONDS (9.7-12.2) H 08/12/18 16:29 INR 1.2 08/12/18 16:29 APTT 27 SECONDS (21-34) 08/12/18 16:29 - Constitutional Appears: Non-toxic, No Acute Distress - Head Exam Head Exam: ATRAUMATIC, NORMAL INSPECTION - Eye Exam Eye Exam: EOMI, Normal appearance - ENT Exam ENT Exam: Mucous Membranes Moist, Normal Exam - Respiratory Exam Respiratory Exam: Clear to Ausculation Bilateral, NORMAL BREATHING PATTERN - Cardiovascular Exam Cardiovascular Exam: REGULAR RHYTHM, +S1, +S2 - GI/Abdominal Exam GI & Abdominal Exam: Soft, Tenderness, Normal Bowel Sounds - Extremities Exam Extremities Exam: Full ROM, Normal Inspection - Back Exam Back Exam: paraspinal tenderness - Neurological Exam Neurological Exam: Alert, Awake, Oriented x3 - Psychiatric Exam Psychiatric exam: Normal Affect, Normal Mood - Skin Skin Exam: Dry, Normal Color Assessment and Plan - Assessment and Plan (Free Text) Assessment: #Abdominal pain #Elevated liver tests #Blood in stool, with weight loss #Influenza #RA on Humira PLAN: -Labs and imaging reviewed. U/S with CBD 4mm. Echogenic liver. -Liver test likely elevated due to either recent amoxicillin use vs influenza -Supportive care with IVF. Avoid hepatotoxic medications. -Trend Liver tests -Check hepatitis panel, anti-SM, anti-mitochondrial Abs. -Continue PPI -Regular diet as tolerated. -Recommend outpatient GI follow up with Dr. Roberts for the blood in stool and weight loss. Recommend EGD/colon. -Recommend Blood culture, and CXR in setting of worsening fever. -F/U CT results <Humble Roberts - Last Filed: 08/13/18 18:23> Objective - Vital Signs/Intake and Output Vital Signs (last 24 hours): Temp Pulse Resp BP Pulse Ox 101.1 F H 97 H 20 122/77 101 H 08/13/18 16:33 08/13/18 16:00 08/13/18 16:00 08/13/18 16:00 08/13/18 16:00 Intake and Output: 08/13/18 08/13/18 06:59 18:59 Intake Total 760 640 Balance 760 640 - Medications Medications: Current Medications Acetaminophen (Tylenol 325mg Tab) 650 mg PO Q6 PRN PRN Reason: Fever >100.4 F Last Admin: 08/13/18 16:33 Dose: 650 mg Hydromorphone HCl (Dilaudid) 1 mg IVP Q4H PRN PRN Reason: Pain, moderate (4-7) Last Admin: 08/13/18 06:48 Dose: 1 mg Dextrose/Sodium Chloride (Dextrose 5%/0.45% Ns 1000 Ml) 1,000 mls @ 80 mls/hr IV .[id number] [facility] Last Admin: 08/13/18 11:31 Dose: 80 mls/hr Influenza Virus Vaccine (Fluzone Quad [id number]) 60 mcg IM .ONCE ONE Stop: 08/15/18 10:06 Oseltamivir Phosphate (Tamiflu Cap) 75 mg PO BID [facility]; Protocol Stop: 08/16/18 18:01 Pantoprazole Sodium (Protonix Ec Tab) 40 mg PO DAILY [facility] Last Admin: 08/13/18 09:54 Dose: 40 mg Pneumococcal Polyvalent Vaccine (Pneumovax 23 Vaccine) 0.5 ml IM .ONCE ONE Stop: 08/15/18 10:01 Promethazine HCl/Dextromethorphan (Phenergan Dm Syrup) 10 ml PO Q8H PRN PRN Reason: Cough and congestion - Labs Labs: 08/12/18 11:12 08/13/18 07:06 PT 13.2 SECONDS (9.7-12.2) H 08/12/18 16:29 INR 1.2 08/12/18 16:29 APTT 27 SECONDS (21-34) 08/12/18 16:29 Attending/Attestation - Attestation I have personally seen and examined this patient.: Yes I have fully participated in the care of the patient.: Yes I have reviewed all pertinent clinical information, including history, physical exam and plan: Yes Notes (Text): 08/13/18 18:20 I have seen and examined patient with GI fellow. No acute events overnight, she continues to endorse right sided abdominal pain and had fever up to 103 today. She was not able to tolerate PO diet and experienced vomiting following attempted consumption. She denies diarrhea or rectal bleeding. Abdominal pain Transaminitis Fever - Liquid diet as tolerated - Obtain blood cultures - Consider initiation of antibiotic therapy, follow up ID recommendations - Continue with PPI therapy - CT imaging ordered by medical team, follow up results - LFTs stable, awaiting autoimmune panel. Viral hepatitis panel negative. - Will continue to monitor patient clinical course
[2018-08-13] MEDS: Pantoprazole 40 mg EC Tab PO SCH (09:54)
--- NOTE | 2018-08-13 14:16 | CP.PCM.PN ---
Subjective - Date & Time of Evaluation Date of Evaluation: 08/13/18 Time of Evaluation: 14:14 - Subjective Subjective: patient still has pain in quadrant but no nausea or vomiting and still has upper respiratory congestion. Influenza serology is negative probably secondary to partial treatment or false positive as an outpatient testing. Liver function is down trending CT of the abdomen with by mouth and IV contrast. Objective - Vital Signs/Intake and Output Vital Signs (last 24 hours): Temp Pulse Resp BP Pulse Ox 99.5 F 99 H 20 96/66 L 98 08/13/18 07:45 08/13/18 07:45 08/13/18 07:45 08/13/18 07:45 08/13/18 07:45 Intake and Output: 08/13/18 08/13/18 11:59 23:59 Intake Total 760 640 Balance 760 640 - Medications Medications: Current Medications Hydromorphone HCl (Dilaudid) 1 mg IVP Q4H PRN PRN Reason: Pain, moderate (4-7) Last Admin: 08/13/18 06:48 Dose: 1 mg Dextrose/Sodium Chloride (Dextrose 5%/0.45% Ns 1000 Ml) 1,000 mls @ 80 mls/hr IV .[id number] [facility] Last Admin: 08/13/18 11:31 Dose: 80 mls/hr Influenza Virus Vaccine (Fluzone Quad [id number]) 60 mcg IM .ONCE ONE Stop: 08/15/18 10:06 Pantoprazole Sodium (Protonix Ec Tab) 40 mg PO DAILY [facility] Last Admin: 08/13/18 09:54 Dose: 40 mg Pneumococcal Polyvalent Vaccine (Pneumovax 23 Vaccine) 0.5 ml IM .ONCE ONE Stop: 08/15/18 10:01 Promethazine HCl/Dextromethorphan (Phenergan Dm Syrup) 10 ml PO Q8H PRN PRN Reason: Cough and congestion - Labs Labs: 08/12/18 11:12 08/13/18 07:06 PT 13.2 SECONDS (9.7-12.2) H 08/12/18 16:29 INR 1.2 08/12/18 16:29 APTT 27 SECONDS (21-34) 08/12/18 16:29 Assessment and Plan (1) Influenza Status: Acute (2) Epigastric abdominal pain Status: Acute
--- NOTE | 2018-08-13 16:11 | RAD ---
HISTORY: fever COMPARISON: Chest x-ray portion of obstructive series performed 08/31/17 TECHNIQUE: Chest PA and lateral FINDINGS: LUNGS: No focal consolidation. Please note that chest x-ray has limited sensitivity for the detection of pulmonary masses. PLEURA: No significant pleural effusion identified. No definite pneumothorax . CARDIOVASCULAR: Heart size appears within normal limits. No atherosclerotic calcification present. OSSEOUS STRUCTURES: No acute osseous abnormality identified. VISUALIZED UPPER ABDOMEN: Unremarkable. OTHER FINDINGS: None. IMPRESSION: No focal consolidation, significant pleural effusion, or definite pneumothorax identified.
[2018-08-13] MEDS ORDERED: Iohexol 240 (50 ml) PO ONE (16:45)
[2018-08-13] MEDS ORDERED: Iohexol 350mg/ml 100 ML ONE (18:37)
--- NOTE | 2018-08-13 21:55 | CP.PCM.CON ---
History of Present Illness - History of Present Illness History of Present Illness: HPI; 38 y/o F with PMHx of Wilkerson's palsy, migraines, rheumatoid arthritis on Humira every 2 weeks who presented to [facility] on 08/12/18 with 3 days of epigastric pain that radiates to the right side of the mid back. Of note patient was treated for positive Strep last week with Amoxocillin and went back to the doctor yesterday and was found to have positive flu and given Tamiflu. Patient says the abdominal pain got worse, and severe in epigastric and right flank area. Patient says the pain is worse with movement and deep breathing. Patient has nausea but no vomiting and is able to tolerate diet. Patient also admits to burning with urination for the past 4 days. Patient denies any constipation or diarrhea. Patient denies any alcohol use. Patient denies any recent travel. Patient does give history of difficulty of improving every time she gets an infection in spite of antibiotics and she has to take them for prolonged periods. She also states she had difficulty of healing of her wound when she had C- section. Patient denies any headaches, sinus problem but continues to have coryza and feeling of congestion and upper respiratory tract infection. Patient only took Tamiflu for 2 days In [facility] patient's repeat influenza type a and B EIA IS NEGATIVE. PATIENT'S lftS WERE ELEVATED AND PRESENTLY COMING DOWN.PATIENT DENIES HISTORY OF HEPATITIS. ABDOMINAL ULTRASOUND ON ADMISSION SHOWED FATTY LIVER WITH PRIOR CHOLECYSTECTOMY AND MILD PROMINENCE OF THE COMMON BILE DUCT. CHEST X-RAY DONE TODAY SHOWS NO ACUTE CONSOLIDATION. PATIENT CONTINUES TO HAVE LOW-GRADE TEMPERATURES AND ABDOMINAL PAIN. PATIENT WAS SEEN BY GI,AND HER ELEVATION OF LIVER ENZYMES IS PRESUMED TO BE DUE TO AMOXICILLIN. PMH: Depression, Rheumatoid Arthritis Surgical History: Cholecystectomy (2012), Family History: States: CAD, Diabetes, Other Other Family History: Mom: HTN, hypothyroid, RA - Social History Hx Tobacco Use: No Hx Alcohol Use: No Hx Substance Use: No PATIENT IS SINGLE AND LIVES WITH HER BOYFRIEND. - Immunization History Hx Tetanus Toxoid Vaccination: No Hx Influenza Vaccination: Yes Hx Pneumococcal Vaccination: No Allergy; NKA. Review of Systems - Constitutional Constitutional: Chills, Fever - EENT Nose/Mouth/Throat: Nasal Congestion, Sore Throat. absent: Mouth Lesions - Breasts Breasts: As Per HPI. absent: Skin Changes - Cardiovascular Cardiovascular: absent: Chest Pain - Respiratory Respiratory: Cough. absent: Chest Congestion - Gastrointestinal Gastrointestinal: Abdominal Pain, Nausea. absent: Diarrhea, Vomiting - Genitourinary Genitourinary: Dysuria. absent: Hematuria, Freq UTI, Hx Renal/Bladder Calculi - Reproductive: Female Reproductive:Female: Heavy Menses - Menstruation Menstruation: Heavy Menses - Musculoskeletal Musculoskeletal: absent: Myalgias - Neurological Neurological: absent: Headaches, Other Visual Disturbances - Psychiatric Psychiatric: Depression - Hematologic/Lymphatic Hematologic: As Per HPI. absent: Lymphadenopathy Past Patient History - Past Social History Smoking Status: Never Smoked - MUSCULOSKELETAL/RHEUMATOLOGICAL Hx Rheumatoid Arthritis: Yes - PSYCHIATRIC Hx Depression: Yes Hx Substance Use: No - SURGICAL HISTORY Hx Cholecystectomy: Yes (2012) - ANESTHESIA Hx Anesthesia: Yes Hx Anesthesia Reactions: No Meds Allergies/Adverse Reactions: Allergies Allergy/AdvReac Type Severity Reaction Status Date / Time No Known Allergies Allergy Verified 08/12/18 09:13 - Medications Medications: Current Medications Acetaminophen (Tylenol 325mg Tab) 650 mg PO Q6 PRN PRN Reason: Fever >100.4 F Last Admin: 08/13/18 16:33 Dose: 650 mg Hydromorphone HCl (Dilaudid) 1 mg IVP Q4H PRN PRN Reason: Pain, moderate (4-7) Last Admin: 08/13/18 06:48 Dose: 1 mg Dextrose/Sodium Chloride (Dextrose 5%/0.45% Ns 1000 Ml) 1,000 mls @ 80 mls/hr IV .[id number] [facility] Last Admin: 08/13/18 11:31 Dose: 80 mls/hr Influenza Virus Vaccine (Fluzone Quad [id number]) 60 mcg IM .ONCE ONE Stop: 08/15/18 10:06 Oseltamivir Phosphate (Tamiflu Cap) 75 mg PO BID [facility]; Protocol Stop: 08/16/18 18:01 Pantoprazole Sodium (Protonix Ec Tab) 40 mg PO DAILY [facility] Last Admin: 08/13/18 09:54 Dose: 40 mg Pneumococcal Polyvalent Vaccine (Pneumovax 23 Vaccine) 0.5 ml IM .ONCE ONE Stop: 08/15/18 10:01 Promethazine HCl/Dextromethorphan (Phenergan Dm Syrup) 10 ml PO Q8H PRN PRN Reason: Cough and congestion Physical Exam - Constitutional Appears: No Acute Distress - Head Exam Head Exam: NORMAL INSPECTION - Eye Exam Eye Exam: EOMI, PERRL - ENT Exam ENT Exam: Normal Exam, Normal Oropharynx - Neck Exam Neck exam: Positive for: Normal Inspection. Negative for: Lymphadenopathy, Thy romegaly - Respiratory Exam Respiratory Exam: Clear to Auscultation Bilateral, NORMAL BREATHING PATTERN - Cardiovascular Exam Cardiovascular Exam: REGULAR RHYTHM, +S1, +S2 - GI/Abdominal Exam GI & Abdominal Exam: Normal Bowel Sounds, Soft, Tenderness (EPIGASTRIC AND RIGHT FLANK REGION.). absent: Distended, Guarding - Extremities Exam Extremities exam: Positive for: normal capillary refill, pedal pulses present. Negative for: calf tenderness, pedal edema - Neurological Exam Neurological exam: Alert, CN II-XII Intact, Oriented x3, Reflexes Normal - Psychiatric Exam Psychiatric exam: Normal Mood - Skin Skin Exam: Normal Color, Warm Results - Vital Signs Recent Vital Signs: Last Vital Signs Temp 101.1 F H 08/13/18 16:33 Pulse 97 H 08/13/18 16:00 Resp 20 08/13/18 16:00 BP 122/77 08/13/18 16:00 Pulse Ox 101 H 08/13/18 16:00 - Labs Result Diagrams: 08/12/18 11:12 08/13/18 07:06 Labs: Laboratory Results - last 24 hr 08/13/18 07:06 Sodium 133 Potassium 4.1 Chloride 99 Carbon Dioxide 25 Anion Gap 13 BUN 6 L Creatinine 0.5 L Est GFR ( Amer) > 60 Est GFR (Non-Af Amer) > 60 Random Glucose 103 Calcium 8.5 L Total Bilirubin 0.3 AST 114 H ALT 101 H Alkaline Phosphatase 217 H Total Protein 8.4 H Albumin 3.9 Globulin 4.5 H Albumin/Globulin Ratio 0.9 L - Imaging and Cardiology Chest x-ray Status: Report reviewed by me (no acute consolidation.) Assessment & Plan (1) Influenza Assessment and Plan: patient does give history of influenza + screen as outpatient clinic. Patient got Tamiflu only for 2 days. We will reinitiate Tamiflu 75 mg by mouth twice a day and observe. Repeat throat culture for strep throat. Status: Acute (2) Abdominal pain Assessment and Plan: patient continues to have abdominal pains mainly epigastric and right flank region. Elevated transaminitis noted which is presently resolving slowly. Etiology most likely amoxicillin which patient received last week for her strep throat. Patient seen by GI and presently hepatitis screen AB and C is negative. Will follow LFTs closely. Ultrasound of liver consistent with fatty liver and prior cholecystectomy and mild prominence of the common bile duct. Status: Acute (3) Transaminitis Assessment and Plan: follow-up LFTs. May be secondary to amoxicillin which patient received last week for strep throat. follow-up CT abdomen and pelvis as ordered. 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 rheumatoid factor WALDEMAR TITER. Status: Acute
[2018-08-13 22:18] LABS: SQUAMOUS EPITHIAL 3 /hpf (0-5); URINE BACTERIA RARE (<OCC); URINE BILIRUBIN NEGATIVE (NEGATIVE); URINE BLOOD 1+ (NEGATIVE); URINE CLARITY Clear (Clear); URINE COLOR Yellow (YELLOW); URINE GLUCOSE (UA) NORMAL (Normal); URINE LEUKOCYTE ESTERASE NEG Leu/uL (Negative); URINE PROTEIN NEGATIVE (NEGATIVE); URINE UROBILINOGEN NORMAL mg/dL (0.2-1.0)
[2018-08-14] MEDS: HYDROmorphone 1 mg/ml ISec IVP PRN (01:05)
[2018-08-14] MEDS: Dextrose 5%/0.45% NS 1,000 ML IV SCH ×3 (04:50→19:50)
[2018-08-14 08:53] LABS: BASO % 0.2 % (0.0-2.0); HEMOGLOBIN 11.2 g/dL (11.0-16.0); LYMPH # 0.8 K/uL (1.0-4.3); LYMPH % 19.2 % (20.0-40.0); MEAN CELL VOLUME 72.7 fL (81.0-99.0); MEAN CORPUSCULAR HEMOGLOBIN 23.9 pg (27.0-31.0); MEAN CORPUSCULAR HGB CONC 32.9 g/dL (33.0-37.0); MEAN PLATELET VOLUME 9.2 fL (7.2-11.7); MONO # 0.3 K/uL (0.0-0.8); MONO % 6.4 % (0.0-10.0); NEUT % 74.2 % (50.0-75.0); NRBC % 0.1 % (0.0-2.0); RBC 4.69 Mil/uL (3.80-5.20); RED CELL DISTRIBUTION WIDTH 16.1 % (11.5-14.5); WHITE BLOOD COUNT 4.1 K/uL (4.8-10.8)
[2018-08-14 09:03] LABS: ALB/GLOB RATIO 0.9 (1.0-2.1); ALBUMIN 4.1 g/dL (3.5-5.0); ALT/SGPT 119 U/L (9-52); AST/SGOT 130 U/L (14-36); BILIRUBIN,DIRECT 0.4 mg/dL (0.0-0.4); BLOOD UREA NITROGEN 6 mg/dL (7-17); CALCIUM 8.8 mg/dl (8.6-10.4); GFR NON-AFRICAN AMERICAN > 60
--- NOTE | 2018-08-14 10:04 | CP.PCM.PN ---
<Juan Chairez - Last Filed: 08/14/18 12:03> Subjective - Date & Time of Evaluation Date of Evaluation: 08/14/18 Time of Evaluation: 09:55 - Subjective Subjective: Patient's abdominal pain feels slightly better today, but still present. She had several episodes of fever and vomiting yesterday and lastnight. Non-bloody. She feels slightly nauseous today. Objective - Vital Signs/Intake and Output Vital Signs (last 24 hours): Temp Pulse Resp BP Pulse Ox 98.8 F 123 H 20 103/61 99 08/14/18 08:31 08/14/18 08:31 08/14/18 08:31 08/14/18 08:31 08/14/18 08:43 Intake and Output: 08/14/18 08/14/18 06:59 18:59 Intake Total 1280 Balance 1280 - Medications Medications: Current Medications Acetaminophen (Tylenol 325mg Tab) 650 mg PO Q6 PRN PRN Reason: Fever >100.4 F Last Admin: 08/14/18 01:05 Dose: 650 mg Hydromorphone HCl (Dilaudid) 1 mg IVP Q4H PRN PRN Reason: Pain, moderate (4-7) Last Admin: 08/14/18 01:05 Dose: 1 mg Dextrose/Sodium Chloride (Dextrose 5%/0.45% Ns 1000 Ml) 1,000 mls @ 80 mls/hr IV .[id number] [facility] Last Admin: 08/14/18 04:50 Dose: 80 mls/hr Influenza Virus Vaccine (Fluzone Quad [id number]) 60 mcg IM .ONCE ONE Stop: 08/15/18 10:06 Ondansetron HCl (Zofran Inj) 4 mg IVP ONCE ONE Stop: 08/14/18 09:43 Ondansetron HCl (Zofran Inj) 4 mg IVP Q6H PRN PRN Reason: Nausea/Vomiting Oseltamivir Phosphate (Tamiflu Cap) 75 mg PO BID [facility]; Protocol Stop: 08/16/18 18:01 Last Admin: 08/13/18 22:12 Dose: 75 mg Pantoprazole Sodium (Protonix Ec Tab) 40 mg PO DAILY [facility] Last Admin: 08/13/18 09:54 Dose: 40 mg Pneumococcal Polyvalent Vaccine (Pneumovax 23 Vaccine) 0.5 ml IM .ONCE ONE Stop: 08/15/18 10:01 Promethazine HCl/Dextromethorphan (Phenergan Dm Syrup) 10 ml PO Q8H PRN PRN Reason: Cough and congestion - Labs Labs: 08/14/18 08:33 08/14/18 08:33 PT 13.2 SECONDS (9.7-12.2) H 08/12/18 16:29 INR 1.2 08/12/18 16:29 APTT 27 SECONDS (21-34) 08/12/18 16:29 - Constitutional Appears: Non-toxic, No Acute Distress - Head Exam Head Exam: ATRAUMATIC, NORMAL INSPECTION - Eye Exam Eye Exam: EOMI, Normal appearance - ENT Exam ENT Exam: Mucous Membranes Moist, Normal Exam - Respiratory Exam Respiratory Exam: Clear to Ausculation Bilateral, NORMAL BREATHING PATTERN - Cardiovascular Exam Cardiovascular Exam: REGULAR RHYTHM, +S1, +S2 - GI/Abdominal Exam GI & Abdominal Exam: Soft, Tenderness, Normal Bowel Sounds - Extremities Exam Extremities Exam: Full ROM, Normal Inspection - Neurological Exam Neurological Exam: Alert, Awake, Oriented x3 - Skin Skin Exam: Dry, Normal Color Assessment and Plan - Assessment and Plan (Free Text) Assessment: #Abdominal pain - Splenic mass, retroperitoneal lymphadenopathy. #Elevated liver tests #Blood in stool, with weight loss #Influenza #RA on Humira PLAN: -CT reviewed. Significant for splenic mass, retroperitoneal lymphnodes. Discussed with radiologist. Given her hx of Humira use and recent symptoms, she is at risk for malignant (lymphoma) and infectious etiology. -We will discuss with ID -Labs and imaging reviewed. U/S with CBD 4mm. Echogenic liver. -Liver test suspected to be elevated due to amoxicillin use. -Supportive care with IVF. Avoid hepatotoxic medications. -Trend Liver tests -Hepatitis panel negative -Anti-SM, anti-mitochondrial Abs pending -Continue PPI -Full liquid diet with as needed zofran. -Recommend outpatient GI follow up with Dr. Roberts for the blood in stool and weight loss. Recommend EGD/colon. <Humble Roberts - Last Filed: 08/14/18 12:17> Objective - Vital Signs/Intake and Output Vital Signs (last 24 hours): Temp Pulse Resp BP Pulse Ox 98.8 F 123 H 20 103/61 99 08/14/18 08:31 08/14/18 08:31 08/14/18 10:59 08/14/18 08:31 08/14/18 08:43 Intake and Output: 08/14/18 08/14/18 06:59 18:59 Intake Total 1280 Balance 1280 - Medications Medications: Current Medications Hydromorphone HCl (Dilaudid) 1 mg IVP Q4H PRN PRN Reason: Pain, moderate (4-7) Last Admin: 08/14/18 01:05 Dose: 1 mg Dextrose/Sodium Chloride (Dextrose 5%/0.45% Ns 1000 Ml) 1,000 mls @ 80 mls/hr IV .[id number] [facility] Last Admin: 08/14/18 04:50 Dose: 80 mls/hr Ibuprofen (Motrin Tab) 400 mg PO Q6 PRN PRN Reason: Fever >100.4 F Last Admin: 08/14/18 11:58 Dose: 400 mg Influenza Virus Vaccine (Fluzone Quad [id number]) 60 mcg IM .ONCE ONE Stop: 08/15/18 10:06 Ondansetron HCl (Zofran Inj) 4 mg IVP Q6H PRN PRN Reason: Nausea/Vomiting Oseltamivir Phosphate (Tamiflu Cap) 75 mg PO BID [facility]; Protocol Stop: 08/16/18 18:01 Last Admin: 08/14/18 10:17 Dose: 75 mg Pantoprazole Sodium (Protonix Ec Tab) 40 mg PO DAILY [facility] Last Admin: 08/14/18 10:17 Dose: 40 mg Pneumococcal Polyvalent Vaccine (Pneumovax 23 Vaccine) 0.5 ml IM .ONCE ONE Stop: 08/15/18 10:01 Promethazine HCl/Dextromethorphan (Phenergan Dm Syrup) 10 ml PO Q8H PRN PRN Reason: Cough and congestion - Labs Labs: 08/14/18 08:33 08/14/18 08:33 PT 13.2 SECONDS (9.7-12.2) H 08/12/18 16:29 INR 1.2 08/12/18 16:29 APTT 27 SECONDS (21-34) 08/12/18 16:29 Attending/Attestation - Attestation I have personally seen and examined this patient.: Yes I have fully participated in the care of the patient.: Yes I have reviewed all pertinent clinical information, including history, physical exam and plan: Yes Notes (Text): 08/14/18 12:14 I have seen and examined patient with GI fellow. She continues to have high fever, up to 102.6 today along with right sided abdominal pain. She denies recurrent vomiting and is tolerating PO liquids without difficulty. No bowel movements overnight. Transaminitis Abdominal pain Fever CT imaging reviewed by me showing splenic lesion, abdominal/retroperitoneal adenopathy Influenza - Liquid diet as tolerated - Continue with PPI therapy - LFTs stable, continue to monitor and awaiting autoimmune panel results - Follow up ID recommendations, would suggest empiric antibiotic therapy and continued monitoring of blood cultures. Consider lymphoma workup given clinical scenario with patient on Adalimumab for arthritis. - Will continue to monitor patient clinical course
[2018-08-14] MEDS: Pantoprazole 40 mg EC Tab PO SCH (10:17)
--- NOTE | 2018-08-14 10:29 | CT ---
Date of service: 08/13/2018 PROCEDURE: CT Abdomen and Pelvis with contrast HISTORY: Abn U/S COMPARISON: Comparison is made with the previous ultrasound of abdomen dated 08/12/2018 TECHNIQUE: Contrast dose: 100 cc of Omnipaque 300 intravenously. Radiation dose: Total exam DLP = 515.97 mGy-cm. This CT exam was performed using one or more of the following dose reduction techniques: Automated exposure control, adjustment of the mA and/or kV according to patient size, and/or use of iterative reconstruction technique. FINDINGS: LOWER THORAX: Unremarkable. LIVER: The liver is mildly enlarged. GALLBLADDER AND BILE DUCTS: Status post cholecystectomy. PANCREAS: Unremarkable. No gross lesion or ductal dilatation. SPLEEN: There is a heterogeneous enhancing lesion at the spleen measures 2.8 centimeter in the largest transverse diameter 2.2 centimeter in the longitudinal diameter and 2 centimeter in the AP diameter. ADRENALS: Unremarkable. No mass. KIDNEYS AND URETERS: There are 2 adjacent nonobstructing renal calculi in the midpole of the left kidney with the largest measures approximately 5.5 millimeter. There is mild dilatation of the left kidney collecting system without definite evidence of obstructing ureter stone. The kidneys enhance symmetrically. VASCULATURE: Unremarkable. No aortic aneurysm. No aortic atherosclerotic calcification or mural plaque present. BOWEL: Unremarkable. No obstruction. No gross mural thickening. APPENDIX: No evidence of appendicitis. PERITONEUM: Unremarkable. No free fluid. No free air. LYMPH NODES: There are mildly enlarged periaortic and retroperitoneal lymph nodes seen in the mid and upper abdomen. BLADDER: Unremarkable. REPRODUCTIVE: There is 2 centimeter cyst at the right adnexa. The uterus is heterogeneous. There is small amount of fluid in the endometrial cavity. There is possible fibroid in the uterine fundus. BONES: No acute fracture. OTHER FINDINGS: None. IMPRESSION: Complex mass lesion in the spleen of uncertain etiology. Both benign lesion such as hemangioma or malignant neoplasm share the same appearance. Mildly enlarged retroperitoneal and periaortic lymph nodes noted at the mid and upper abdomen. Two adjacent nonobstructing renal calculi at the midpole of the left kidney with the largest measures 5.5 millimeter. Mildly dilated left kidney collecting system. 2 centimeters cyst at the right adnexa. Heterogeneous uterus. If indicated further assessment with ultrasound may be obtained. Additional findings as discussed above. Preliminary report was submitted by [facility].
[2018-08-14 12:44] LABS: ANTI STREPTOLYSIN O NEGATIVE (NEGATIVE)
--- NOTE | 2018-08-14 13:03 | CP.PCM.PN ---
Subjective - Date & Time of Evaluation Date of Evaluation: 08/14/18 Time of Evaluation: 13:03 - Subjective Subjective: FEBRILE TMAX 101.5 C/O HEADACHE WHEN FEVER HIGH VSS NOTED C/O PERSISTANT ABDOMINAL PAIN RADIATING TO THE BACK C/O SLIGHT NAUSEA BUT NO VOMITING. DENIES DYSURIA/OR HEMATURIA. Objective - Vital Signs/Intake and Output Vital Signs (last 24 hours): Temp Pulse Resp BP Pulse Ox 98.8 F 123 H 20 103/61 99 08/14/18 08:31 08/14/18 08:31 08/14/18 10:59 08/14/18 08:31 08/14/18 08:43 Intake and Output: 08/14/18 08/14/18 06:59 18:59 Intake Total 1280 Balance 1280 - Medications Medications: Current Medications Hydromorphone HCl (Dilaudid) 1 mg IVP Q4H PRN PRN Reason: Pain, moderate (4-7) Last Admin: 08/14/18 01:05 Dose: 1 mg Dextrose/Sodium Chloride (Dextrose 5%/0.45% Ns 1000 Ml) 1,000 mls @ 80 mls/hr IV .[id number] [facility] Last Admin: 08/14/18 04:50 Dose: 80 mls/hr Meropenem 1 gm/ Sodium (Chloride) 100 mls @ 100 mls/hr IVPB Q12H [facility]; Protocol Vancomycin HCl 1 gm/ Sodium (Chloride) 250 mls @ 166.7 mls/hr IVPB Q24H [facility]; Protocol Ibuprofen (Motrin Tab) 400 mg PO Q6 PRN PRN Reason: Fever >100.4 F Last Admin: 08/14/18 11:58 Dose: 400 mg Influenza Virus Vaccine (Fluzone Quad [id number]) 60 mcg IM .ONCE ONE Stop: 08/15/18 10:06 Ondansetron HCl (Zofran Inj) 4 mg IVP Q6H PRN PRN Reason: Nausea/Vomiting Oseltamivir Phosphate (Tamiflu Cap) 75 mg PO BID [facility]; Protocol Stop: 08/16/18 18:01 Last Admin: 08/14/18 10:17 Dose: 75 mg Pantoprazole Sodium (Protonix Ec Tab) 40 mg PO DAILY [facility] Last Admin: 08/14/18 10:17 Dose: 40 mg Pneumococcal Polyvalent Vaccine (Pneumovax 23 Vaccine) 0.5 ml IM .ONCE ONE Stop: 08/15/18 10:01 Promethazine HCl/Dextromethorphan (Phenergan Dm Syrup) 10 ml PO Q8H PRN PRN Reason: Cough and congestion - Labs Labs: 08/14/18 08:33 08/14/18 08:33 PT 13.2 SECONDS (9.7-12.2) H 08/12/18 16:29 INR 1.2 08/12/18 16:29 APTT 27 SECONDS (21-34) 08/12/18 16:29 - Constitutional Appears: No Acute Distress - Eye Exam Eye Exam: EOMI, PERRL. absent: Scleral icterus - ENT Exam ENT Exam: Normal Oropharynx - Neck Exam Neck Exam: Normal Inspection. absent: Lymphadenopathy - Respiratory Exam Respiratory Exam: Clear to Ausculation Bilateral, NORMAL BREATHING PATTERN - Cardiovascular Exam Cardiovascular Exam: Tachycardia, REGULAR RHYTHM, +S1, +S2 - GI/Abdominal Exam GI & Abdominal Exam: Soft, Tenderness (RT. FLANK/RUQ), Normal Bowel Sounds. absent: Organomegaly - Extremities Exam Extremities Exam: Normal Capillary Refill. absent: Calf Tenderness, Pedal Edema - Back Exam Back Exam: CVA tenderness (R), NORMAL INSPECTION - Neurological Exam Neurological Exam: Alert, Awake, CN II-XII Intact, Normal Gait, Oriented x3, Reflexes Normal - Psychiatric Exam Psychiatric exam: Normal Mood - Skin Skin Exam: Normal Color, Warm Assessment and Plan (1) Fever Assessment & Plan: CT ABDOMEN/PELVIS- complex mass in the spleen and retroperitoneal lymph node enlargement and nonobstructive renal calculi with mild dilation of the collecting system. ( SEE FULL DETAILS ) PATIENT IS ON TERI FOR HER RHEUMATOID ARTHRITIS AND IS IMMUNOCOMPROMISED AND AT RISK FOR INFECTIONS-BACTERIAL VIRAL AND FUNGAL AND OCCULT LYMPHOMA. PANCULTURES/AND EMPIRICALLY START ON BROAD-SPECTRUM ANTIBIOTICS IV MERREM 1 G EVERY 12 HOURLY 08/14/18. IV VANCOMYCIN 1GM IVPB Q 24HRLY 08/14/18. F/U RENAL FUNCTIONS CLOSELY. -CT SINUSES /HEAD R/O ANY OCCULT MASS OR SINUSITIS. IF HEADACHE/AND FEVERS PERSISTS WOULD CONSIDER LP 2D ECHO R/O SBE Status: Acute (2) Influenza Assessment & Plan: PT ON TAMIFLU PO FOR NOW Status: Acute (3) Abdominal pain Assessment & Plan: LFTS NOTED INCREASING TRANSAMINITIS/AND ALK PO4 289. ? R/O AUTOIMMUNE HEPATITIS R/O ASCENDING CHOLANGITIS R/O OCCULT LYMPHOMA. GI W/U IN PROGRESS SERUM LDH PER GI.-P SERUM FERRITIN SERUM COPPER LEVELS. ANCA. Status: Acute (4) Transaminitis Status: Acute (5) Rheumatoid arthritis Status: Acute
[2018-08-14] MEDS: Meropenem 1 GM in Sodium Chloride 0.9% 100 ML IVPB SCH (13:25)
--- NOTE | 2018-08-14 14:08 | CP.PCM.PN ---
Subjective - Date & Time of Evaluation Date of Evaluation: 08/14/18 Time of Evaluation: 14:06 - Subjective Subjective: Patient is spiking 10 2F temperature Patient is still persistent pain in the right upper quadrant radiating to the back CT of the abdomen showed some complex mass in the spleen and retroperitoneal lymph node enlargement and nonobstructive renal calculi with mild dilation of the collecting system Discussed with ID patient will get empiric IV antibiotics Etiology is unclear of sepsis, could be ascending cholangitis, or lymphoma Objective - Vital Signs/Intake and Output Vital Signs (last 24 hours): Temp Pulse Resp BP Pulse Ox 98.8 F 123 H 20 103/61 99 08/14/18 08:31 08/14/18 08:31 08/14/18 10:59 08/14/18 08:31 08/14/18 08:43 Intake and Output: 08/14/18 08/14/18 11:59 23:59 Intake Total 640 Balance 640 - Medications Medications: Current Medications Hydromorphone HCl (Dilaudid) 1 mg IVP Q4H PRN PRN Reason: Pain, moderate (4-7) Last Admin: 08/14/18 01:05 Dose: 1 mg Dextrose/Sodium Chloride (Dextrose 5%/0.45% Ns 1000 Ml) 1,000 mls @ 80 mls/hr IV .[id number] [facility] Last Admin: 08/14/18 13:36 Dose: Not Given Meropenem 1 gm/ Sodium (Chloride) 100 mls @ 100 mls/hr IVPB Q12H [facility]; Protocol Last Admin: 08/14/18 13:25 Dose: 100 mls/hr Vancomycin HCl 1 gm/ Sodium (Chloride) 250 mls @ 166.7 mls/hr IVPB Q24H [facility]; Protocol Last Admin: 08/14/18 13:53 Dose: 166.7 mls/hr Ibuprofen (Motrin Tab) 400 mg PO Q6 PRN PRN Reason: Fever >100.4 F Last Admin: 08/14/18 11:58 Dose: 400 mg Influenza Virus Vaccine (Fluzone Quad [id number]) 60 mcg IM .ONCE ONE Stop: 08/15/18 10:06 Ondansetron HCl (Zofran Inj) 4 mg IVP Q6H PRN PRN Reason: Nausea/Vomiting Oseltamivir Phosphate (Tamiflu Cap) 75 mg PO BID [facility]; Protocol Stop: 08/16/18 18:01 Last Admin: 08/14/18 10:17 Dose: 75 mg Pantoprazole Sodium (Protonix Ec Tab) 40 mg PO DAILY [facility] Last Admin: 08/14/18 10:17 Dose: 40 mg Pneumococcal Polyvalent Vaccine (Pneumovax 23 Vaccine) 0.5 ml IM .ONCE ONE Stop: 08/15/18 10:01 Promethazine HCl/Dextromethorphan (Phenergan Dm Syrup) 10 ml PO Q8H PRN PRN Reason: Cough and congestion - Labs Labs: 08/14/18 08:33 08/14/18 08:33 PT 13.2 SECONDS (9.7-12.2) H 08/12/18 16:29 INR 1.2 08/12/18 16:29 APTT 27 SECONDS (21-34) 08/12/18 16:29 Assessment and Plan (1) Influenza Status: Acute (2) Epigastric abdominal pain Status: Acute
[2018-08-15] MEDS: Meropenem 1 GM in Sodium Chloride 0.9% 100 ML IVPB SCH ×2 (00:23→12:16)
[2018-08-15] MEDS: Promethazine DM 12.5 mg-30 mg/10 ml Syrup PO PRN (00:25)
[2018-08-15] MEDS: Dextrose 5%/0.45% NS 1,000 ML IV SCH ×4 (06:29→21:47)
--- NOTE | 2018-08-15 08:42 | CT ---
Date of service: 08/15/2018 PROCEDURE: CT HEAD WITHOUT CONTRAST. HISTORY: RHEUMATOID ARTHRITIS/HEADACHES COMPARISON: None available. TECHNIQUE: Axial computed tomography images were obtained through the head/brain without intravenous contrast. Radiation dose: Total exam DLP = 1086.72 mGy-cm. This CT exam was performed using one or more of the following dose reduction techniques: Automated exposure control, adjustment of the mA and/or kV according to patient size, and/or use of iterative reconstruction technique. FINDINGS: HEMORRHAGE: No intracranial hemorrhage. BRAIN: No mass effect or edema. No atrophy or chronic microvascular ischemic changes. VENTRICLES: Unremarkable. No hydrocephalus. CALVARIUM: Unremarkable. PARANASAL SINUSES: Unremarkable as visualized. No significant inflammatory changes. MASTOID AIR CELLS: Unremarkable as visualized. No inflammatory changes. OTHER FINDINGS: None. IMPRESSION: No acute intracranial abnormality. If symptoms persists, consider correlation with MRI.
--- NOTE | 2018-08-15 08:46 | CT ---
CT sinuses HISTORY: Sinusitis. COMPARISON: None available. TECHNIQUE: CT multiple contiguous axial images were performed through the paranasal sinuses without the use of intravenous contrast. Subsequently, sagittal coronal reformatted images were obtained. This CT exam was performed using one or more of the following dose reduction techniques: Automated exposure control, adjustment of the mA and/or kV according to patient size, and/or use of iterative reconstruction technique. Findings: Bilateral maxillary sinuses are preserved. Sphenoid sinus is preserved. Ethmoid sinus is preserved. Frontal sinus is preserved. Bilateral mastoid air cells are preserved. Orbital globes are preserved Parotid glands are grossly preserved Rightward nasal septal deviation. Mild mucosal thickening and hypertrophy of the inferior nasal turbinates. Impression: Mild mucosal thickening and hypertrophy of the inferior nasal turbinates.
--- NOTE | 2018-08-15 09:31 | CP.PCM.PN ---
Subjective - Date & Time of Evaluation Date of Evaluation: 08/15/18 Time of Evaluation: 09:27 - Subjective Subjective: Patient seen and examined, resting comfortably in bed. No acute events overnight, her abdominal pain is slightly improved and she is requesting her diet to be advanced. Low grade temperature of 99 noted. 12 point review of systems performed, negative aside from mentioned above. Objective - Vital Signs/Intake and Output Vital Signs (last 24 hours): Temp Pulse Resp BP Pulse Ox 99.1 F 100 H 20 105/63 99 08/15/18 07:00 08/15/18 07:00 08/15/18 07:00 08/15/18 07:00 08/15/18 07:00 Intake and Output: 08/15/18 08/15/18 06:59 18:59 Intake Total 1979 Balance 1979 - Medications Medications: Current Medications Hydromorphone HCl (Dilaudid) 1 mg IVP Q4H PRN PRN Reason: Pain, moderate (4-7) Last Admin: 08/14/18 01:05 Dose: 1 mg Dextrose/Sodium Chloride (Dextrose 5%/0.45% Ns 1000 Ml) 1,000 mls @ 80 mls/hr IV .[id number] JANEE Last Admin: 08/15/18 06:29 Dose: 80 mls/hr Meropenem 1 gm/ Sodium (Chloride) 100 mls @ 100 mls/hr IVPB Q12H JANEE; Protocol Last Admin: 08/15/18 00:23 Dose: 100 mls/hr Vancomycin HCl 1 gm/ Sodium (Chloride) 250 mls @ 166.7 mls/hr IVPB Q24H JANEE; Protocol Last Admin: 08/14/18 13:53 Dose: 166.7 mls/hr Ibuprofen (Motrin Tab) 400 mg PO Q6 PRN PRN Reason: Fever >100.4 F Last Admin: 08/15/18 06:29 Dose: 400 mg Influenza Virus Vaccine (Fluzone Quad [id number]) 60 mcg IM .ONCE ONE Stop: 08/15/18 10:06 Ondansetron HCl (Zofran Inj) 4 mg IVP Q6H PRN PRN Reason: Nausea/Vomiting Last Admin: 08/15/18 00:25 Dose: 4 mg Oseltamivir Phosphate (Tamiflu Cap) 75 mg PO BID JANEE; Protocol Stop: 08/16/18 18:01 Last Admin: 08/14/18 17:40 Dose: 75 mg Pantoprazole Sodium (Protonix Ec Tab) 40 mg PO DAILY [facility] Last Admin: 08/14/18 10:17 Dose: 40 mg Pneumococcal Polyvalent Vaccine (Pneumovax 23 Vaccine) 0.5 ml IM .ONCE ONE Stop: 08/15/18 10:01 Promethazine HCl/Dextromethorphan (Phenergan Dm Syrup) 10 ml PO Q8H PRN PRN Reason: Cough and congestion Last Admin: 08/15/18 00:25 Dose: 10 ml - Labs Labs: 08/14/18 08:33 08/14/18 08:33 PT 13.2 SECONDS (9.7-12.2) H 08/12/18 16:29 INR 1.2 08/12/18 16:29 APTT 27 SECONDS (21-34) 08/12/18 16:29 - Constitutional Appears: Non-toxic, No Acute Distress - Head Exam Head Exam: NORMAL INSPECTION - Eye Exam Eye Exam: EOMI, Normal appearance - ENT Exam ENT Exam: Mucous Membranes Moist - Respiratory Exam Respiratory Exam: Clear to Ausculation Bilateral - Cardiovascular Exam Cardiovascular Exam: +S1, +S2 - GI/Abdominal Exam GI & Abdominal Exam: Soft, Tenderness, Normal Bowel Sounds Additional comments: mild RUQ tenderness to palpation, no rebound/guarding - Extremities Exam Extremities Exam: Normal Inspection - Skin Skin Exam: Dry, Intact, Normal Color, Warm Assessment and Plan - Assessment and Plan (Free Text) Assessment: Rheumatoid arthritis Transaminitis Abdominal pain Fever Plan: - Advance diet as tolerated - LFTs stable, continue to monitor and avoid hepatotoxic therapy. Viral and autoimmune panels negative. - Continue with antibiotic therapy and follow up ID recommendations - Will continue to monitor patient clinical course
[2018-08-15] MEDS: Pantoprazole 40 mg EC Tab PO SCH (09:40)
[2018-08-15] MEDS ORDERED: Pneumococcal 23-Valent Vaccine IM ONE (10:00)
[2018-08-15] MEDS ORDERED: Influenza Vaccine 60 MCG/0.5 ML SYR (3 yr & up) IM ONE (10:05)
--- NOTE | 2018-08-15 14:26 | CP.PCM.PN ---
Subjective - Date & Time of Evaluation Date of Evaluation: 08/15/18 Time of Evaluation: 14:24 - Subjective Subjective: Since yesterday patient's maximum temperature is 100F Abdominal pain is less but still persist There is no nausea or vomiting Partial vascular workup is negative hepatitis profile is negative blood cultures urine cultures are negative liver function test is pending Continue IV antibiotics Objective - Vital Signs/Intake and Output Vital Signs (last 24 hours): Temp Pulse Resp BP Pulse Ox 99.1 F 100 H 20 105/63 99 08/15/18 07:00 08/15/18 07:00 08/15/18 07:00 08/15/18 07:00 08/15/18 07:00 Intake and Output: 08/15/18 08/15/18 11:59 23:59 Intake Total 880 Balance 880 - Medications Medications: Current Medications Hydromorphone HCl (Dilaudid) 1 mg IVP Q4H PRN PRN Reason: Pain, moderate (4-7) Last Admin: 08/14/18 01:05 Dose: 1 mg Dextrose/Sodium Chloride (Dextrose 5%/0.45% Ns 1000 Ml) 1,000 mls @ 80 mls/hr IV .[id number] JANEE Last Admin: 08/15/18 11:25 Dose: Not Given Meropenem 1 gm/ Sodium (Chloride) 100 mls @ 100 mls/hr IVPB Q12H JANEE; Protocol Last Admin: 08/15/18 12:16 Dose: 100 mls/hr Vancomycin HCl 1 gm/ Sodium (Chloride) 250 mls @ 166.7 mls/hr IVPB Q24H JANEE; Protocol Last Admin: 08/15/18 13:31 Dose: 166.7 mls/hr Ibuprofen (Motrin Tab) 400 mg PO Q6 PRN PRN Reason: Fever >100.4 F Last Admin: 08/15/18 06:29 Dose: 400 mg Influenza Virus Vaccine (Fluzone Quad [id number]) 60 mcg IM .ONCE ONE Stop: 08/18/18 10:01 Ondansetron HCl (Zofran Inj) 4 mg IVP Q6H PRN PRN Reason: Nausea/Vomiting Last Admin: 08/15/18 00:25 Dose: 4 mg Oseltamivir Phosphate (Tamiflu Cap) 75 mg PO BID JANEE; Protocol Stop: 08/16/18 18:01 Last Admin: 08/15/18 09:40 Dose: 75 mg Pantoprazole Sodium (Protonix Ec Tab) 40 mg PO DAILY [facility]ANEE Last Admin: 08/15/18 09:40 Dose: 40 mg Pneumococcal Polyvalent Vaccine (Pneumovax 23 Vaccine) 0.5 ml IM .ONCE ONE Stop: 08/18/18 10:01 Promethazine HCl/Dextromethorphan (Phenergan Dm Syrup) 10 ml PO Q8H PRN PRN Reason: Cough and congestion Last Admin: 08/15/18 00:25 Dose: 10 ml - Labs Labs: 08/14/18 08:33 08/14/18 08:33 PT 13.2 SECONDS (9.7-12.2) H 08/12/18 16:29 INR 1.2 08/12/18 16:29 APTT 27 SECONDS (21-34) 08/12/18 16:29 Assessment and Plan (1) Influenza Status: Acute (2) Epigastric abdominal pain Status: Acute
--- NOTE | 2018-08-15 14:40 | CP.PCM.PN ---
Subjective - Date & Time of Evaluation Date of Evaluation: 08/15/18 Time of Evaluation: 14:40 - Subjective Subjective: SPIKING TEMP. 102.8-101.5 TACHCARDIAC C/O DIARRHOEA C/O HEADACHE /AND NAUSEA DENIES VOMITING. CONTINUES TO HAVE ABDOMINAL PAIN EPIGASTRIC AND RUQ AND BLOATING BUT STATES IS LESS THAN BEFORE. LABS/RADIOLOGY CT HEAD AND SINUSES -UNREMARKABLE. WBC 3.0 CREAT 0.7/BUN 7 LFTS INCREASING TRANSAMINITIS/ALK PO4 384 LDH HIGH-837 Objective - Vital Signs/Intake and Output Vital Signs (last 24 hours): Temp Pulse Resp BP Pulse Ox 99.1 F 100 H 20 105/63 99 08/15/18 07:00 08/15/18 07:00 08/15/18 07:00 08/15/18 07:00 08/15/18 07:00 Intake and Output: 08/15/18 08/15/18 06:59 18:59 Intake Total 1979 Balance 1979 - Medications Medications: Current Medications Hydromorphone HCl (Dilaudid) 1 mg IVP Q4H PRN PRN Reason: Pain, moderate (4-7) Last Admin: 08/14/18 01:05 Dose: 1 mg Dextrose/Sodium Chloride (Dextrose 5%/0.45% Ns 1000 Ml) 1,000 mls @ 80 mls/hr IV .[id number] JANEE Last Admin: 08/15/18 11:25 Dose: Not Given Meropenem 1 gm/ Sodium (Chloride) 100 mls @ 100 mls/hr IVPB Q12H JANEE; Protocol Last Admin: 08/15/18 12:16 Dose: 100 mls/hr Vancomycin HCl 1 gm/ Sodium (Chloride) 250 mls @ 166.7 mls/hr IVPB Q24H JANEE; Protocol Last Admin: 08/15/18 13:31 Dose: 166.7 mls/hr Ibuprofen (Motrin Tab) 400 mg PO Q6 PRN PRN Reason: Fever >100.4 F Last Admin: 08/15/18 06:29 Dose: 400 mg Influenza Virus Vaccine (Fluzone Quad [id number]) 60 mcg IM .ONCE ONE Stop: 08/18/18 10:01 Ondansetron HCl (Zofran Inj) 4 mg IVP Q6H PRN PRN Reason: Nausea/Vomiting Last Admin: 08/15/18 00:25 Dose: 4 mg Oseltamivir Phosphate (Tamiflu Cap) 75 mg PO BID [facility]; Protocol Stop: 08/16/18 18:01 Last Admin: 08/15/18 09:40 Dose: 75 mg Pantoprazole Sodium (Protonix Ec Tab) 40 mg PO DAILY JANEE Last Admin: 08/15/18 09:40 Dose: 40 mg Pneumococcal Polyvalent Vaccine (Pneumovax 23 Vaccine) 0.5 ml IM .ONCE ONE Stop: 08/18/18 10:01 Promethazine HCl/Dextromethorphan (Phenergan Dm Syrup) 10 ml PO Q8H PRN PRN Reason: Cough and congestion Last Admin: 08/15/18 00:25 Dose: 10 ml - Labs Labs: 08/14/18 08:33 08/14/18 08:33 PT 13.2 SECONDS (9.7-12.2) H 08/12/18 16:29 INR 1.2 08/12/18 16:29 APTT 27 SECONDS (21-34) 08/12/18 16:29 - Constitutional Appears: No Acute Distress - Head Exam Head Exam: NORMAL INSPECTION - Eye Exam Eye Exam: EOMI, PERRL - ENT Exam ENT Exam: Normal Oropharynx - Neck Exam Neck Exam: Normal Inspection. absent: Meningismus - Respiratory Exam Respiratory Exam: Clear to Ausculation Bilateral, NORMAL BREATHING PATTERN - Cardiovascular Exam Cardiovascular Exam: Tachycardia, REGULAR RHYTHM, +S1, +S2 - GI/Abdominal Exam GI & Abdominal Exam: Soft, Tenderness (EPIGASTRIUM/RUQ), Normal Bowel Sounds. absent: Distended - Extremities Exam Extremities Exam: Normal Capillary Refill. absent: Calf Tenderness, Pedal Edema - Back Exam Back Exam: NORMAL INSPECTION. absent: vertebral tenderness - Neurological Exam Neurological Exam: Awake, CN II-XII Intact, Oriented x3, Reflexes Normal - Psychiatric Exam Psychiatric exam: Normal Mood - Skin Skin Exam: Normal Color, Warm Assessment and Plan (1) FUO (fever of unknown origin) Assessment & Plan: PATIENT IS ON TERI FOR HER RHEUMATOID ARTHRITIS AND IS IMMUNOCOMPROMISED AND AT RISK FOR INFECTIONS-BACTERIAL VIRAL AND FUNGAL AND OCCULT LYMPHOMA. C/O HEADACHES OFF/ON WITH HIGH FEVERS +NAUSEA . WILL GET NEUROLOGY EVAL WITH DR MOLINA. ?LP CRYPTOCOCCAL - ANTIGEN HSV1/HSV 2 TITRES QUANTIFERON -GOLD TB TEST. WILL EMPIRICALLY START IV ACYCLOVIR 500MG IV Q 8HRLY 08/15/18 CONTINUE IV MERREM 1 G EVERY 12 HOURLY 08/14/18. CONTINUE IV VANCOMYCIN 1GM IVPB Q 24HRLY 08/14/18. F/U RENAL FUNCTIONS CLOSELY. -DIARRHOEA W/U. 2D ECHO R/O SBE Status: Acute (2) Abdominal pain Assessment & Plan: PER GI. Status: Acute (3) Transaminitis Assessment & Plan: F/U LFTS Status: Acute (4) Influenza Assessment & Plan: C/O DRY COUGH. CXR 08/14/18 -VE ON TAMIFLUE 75MG PO BID (DAY 3 ) Status: Acute (5) Rheumatoid arthritis Assessment & Plan: GOT TERI 2WKS AGO. Status: Acute
[2018-08-15 18:01] LABS: % CD4 (T HELPER CELL) 37 Percent (30-61); % CD8 (SUPPRESSOR T CELL) 23 Percent (12-42); ABSOLUTE CD4 CELLS 318 Cells/mcL (490-1740); ABSOLUTE CD8 CELLS 198 Cells/mcL (180-1170); ABSOLUTE LYMPHOCYTES 851 Cells/mcL (850-3900); HELPER/SUPPRESSOR RATIO 1.61 Ratio (0.86-5.00)
[2018-08-15] MEDS: Acyclovir 500 MG in Sodium Chloride 0.9% 100 ML IVPB SCH (20:42)
[2018-08-15 20:43] LABS: BASO % 0.8 % (0.0-2.0); LYMPH # 0.7 K/uL (1.0-4.3); LYMPH % 22.9 % (20.0-40.0); MEAN CELL VOLUME 71.8 fL (81.0-99.0); MEAN CORPUSCULAR HEMOGLOBIN 23.1 pg (27.0-31.0); MEAN CORPUSCULAR HGB CONC 32.3 g/dL (33.0-37.0); MEAN PLATELET VOLUME 9.3 fL (7.2-11.7); MONO # 0.1 K/uL (0.0-0.8); MONO % 4.5 % (0.0-10.0); NEUT # 2.1 K/uL (1.8-7.0); NEUT % 71.8 % (50.0-75.0); RBC 4.77 Mil/uL (3.80-5.20); RED CELL DISTRIBUTION WIDTH 16.2 % (11.5-14.5)
[2018-08-15 20:54] LABS: ALB/GLOB RATIO 0.8 (1.0-2.1); ALBUMIN 3.3 g/dL (3.5-5.0); ALT/SGPT 145 U/L (9-52); AST/SGOT 179 U/L (14-36); BILIRUBIN,DIRECT 0.7 mg/dL (0.0-0.4); BLOOD UREA NITROGEN 7 mg/dL (7-17); CALCIUM 7.7 mg/dl (8.6-10.4); GFR NON-AFRICAN AMERICAN > 60
[2018-08-16] MEDS: Meropenem 1 GM in Sodium Chloride 0.9% 100 ML IVPB SCH ×2 (00:35→14:09)
[2018-08-16] MEDS: Acyclovir 500 MG in Sodium Chloride 0.9% 100 ML IVPB SCH ×3 (03:06→19:16)
[2018-08-16 07:22] LABS: BASO % 0.4 % (0.0-2.0); EOS % 0.2 % (0.0-4.0); HEMOGLOBIN 10.3 g/dL (11.0-16.0); LYMPH # 0.5 K/uL (1.0-4.3); LYMPH % 28.4 % (20.0-40.0); MEAN CELL VOLUME 71.1 fL (81.0-99.0); MEAN CORPUSCULAR HEMOGLOBIN 23.1 pg (27.0-31.0); MEAN CORPUSCULAR HGB CONC 32.5 g/dL (33.0-37.0); MEAN PLATELET VOLUME 9.9 fL (7.2-11.7); MONO # 0.1 K/uL (0.0-0.8); MONO % 5.7 % (0.0-10.0); NEUT # 1.2 K/uL (1.8-7.0); NEUT % 65.3 % (50.0-75.0); RBC 4.46 Mil/uL (3.80-5.20); RED CELL DISTRIBUTION WIDTH 16.2 % (11.5-14.5)
[2018-08-16 07:26] LABS: WHITE BLOOD COUNT 1.9 K/uL (4.8-10.8)
[2018-08-16 07:51] LABS: ALB/GLOB RATIO 0.7 (1.0-2.1); ALT/SGPT 123 U/L (9-52); AST/SGOT 141 U/L (14-36); BILIRUBIN,DIRECT 0.6 mg/dL (0.0-0.4); BLOOD UREA NITROGEN 6 mg/dL (7-17); CALCIUM 7.8 mg/dl (8.6-10.4); GFR NON-AFRICAN AMERICAN > 60
[2018-08-16] MEDS: Promethazine DM 12.5 mg-30 mg/10 ml Syrup PO PRN (09:08)
[2018-08-16] MEDS: Pantoprazole 40 mg EC Tab PO SCH (09:09)
--- NOTE | 2018-08-16 09:16 | CP.PCM.PN ---
Subjective - Date & Time of Evaluation Date of Evaluation: 08/16/18 Time of Evaluation: 09:11 - Subjective Subjective: Patient seen and examined, resting comfortably in bed. Still with ongoing fever, tmax up to 102.7 yesterday evening. She complains of ongoing abdominal pain and diarrhea throughout the day, no blood in stool. She was able to tolerate diet without vomiting. 12 point review of systems performed, negative aside from mentioned above. Objective - Vital Signs/Intake and Output Vital Signs (last 24 hours): Temp Pulse Resp BP Pulse Ox 98 F 100 H 20 97/62 L 99 08/16/18 01:00 08/16/18 01:00 08/16/18 01:00 08/16/18 01:00 08/16/18 01:00 Intake and Output: 08/16/18 08/16/18 06:59 18:59 Intake Total 1100 Balance 1100 - Medications Medications: Current Medications Hydromorphone HCl (Dilaudid) 1 mg IVP Q4H PRN PRN Reason: Pain, moderate (4-7) Last Admin: 08/14/18 01:05 Dose: 1 mg Dextrose/Sodium Chloride (Dextrose 5%/0.45% Ns 1000 Ml) 1,000 mls @ 80 mls/hr IV .[id number] JANEE Last Admin: 08/15/18 21:47 Dose: Not Given Meropenem 1 gm/ Sodium (Chloride) 100 mls @ 100 mls/hr IVPB Q12H JANEE; Protocol Last Admin: 08/16/18 00:35 Dose: 100 mls/hr Vancomycin HCl 1 gm/ Sodium (Chloride) 250 mls @ 166.7 mls/hr IVPB Q24H JANEE; Protocol Last Admin: 08/15/18 13:31 Dose: 166.7 mls/hr Acyclovir 500 mg/ Sodium (Chloride) 100 mls @ 100 mls/hr IVPB Q8H JANEE; Protocol Last Admin: 08/16/18 03:06 Dose: 100 mls/hr Ibuprofen (Motrin Tab) 400 mg PO TID PRN PRN Reason: Fever >100.4 F Influenza Virus Vaccine (Fluzone Quad [id number]) 60 mcg IM .ONCE ONE Stop: 08/18/18 10:01 Ondansetron HCl (Zofran Inj) 4 mg IVP Q6H PRN PRN Reason: Nausea/Vomiting Last Admin: 08/15/18 00:25 Dose: 4 mg Oseltamivir Phosphate (Tamiflu Cap) 75 mg PO BID JANEE; Protocol Stop: 08/16/18 18:01 Last Admin: 08/16/18 09:08 Dose: 75 mg Pantoprazole Sodium (Protonix Ec Tab) 40 mg PO DAILY JANEE Last Admin: 08/16/18 09:09 Dose: 40 mg Pneumococcal Polyvalent Vaccine (Pneumovax 23 Vaccine) 0.5 ml IM .ONCE ONE Stop: 08/18/18 10:01 Promethazine HCl/Dextromethorphan (Phenergan Dm Syrup) 10 ml PO Q8H PRN PRN Reason: Cough and congestion Last Admin: 08/16/18 09:08 Dose: 10 ml - Labs Labs: 08/16/18 07:12 08/16/18 07:12 PT 13.2 SECONDS (9.7-12.2) H 08/12/18 16:29 INR 1.2 08/12/18 16:29 APTT 27 SECONDS (21-34) 08/12/18 16:29 - Constitutional Appears: Non-toxic, No Acute Distress - Eye Exam Eye Exam: EOMI, Normal appearance - ENT Exam ENT Exam: Mucous Membranes Moist - Respiratory Exam Respiratory Exam: Clear to Ausculation Bilateral - Cardiovascular Exam Cardiovascular Exam: +S1, +S2 - GI/Abdominal Exam GI & Abdominal Exam: Soft, Tenderness, Normal Bowel Sounds Additional comments: epigastric/RUQ tenderness to palpation, no rebound/guarding - Extremities Exam Extremities Exam: Normal Inspection - Skin Skin Exam: Diaphoretic, Intact, Normal Color, Warm Assessment and Plan - Assessment and Plan (Free Text) Assessment: Rheumatoid arthritis on Humira Abdominal pain Fever Transaminitis Diarrhea - likely secondary to antibiotic therapy given timing of onset Plan: - Diet as tolerated - Obtain stool studies - Continue with antibiotic therapy as per ID, follow up additional recommendations for ongoing infectious workup in setting of abdominal lymphadenopathy and humira use - LFTs stable, continue to monitor - Continue with PPI therapy - Will plan for EGD tomorrow given ongoing abdominal pain, NPO after midnight
[2018-08-16] MEDS: Dextrose 5%/0.45% NS 1,000 ML IV SCH (12:00)
--- NOTE | 2018-08-16 15:49 | CP.PCM.PN ---
Subjective - Date & Time of Evaluation Date of Evaluation: 08/16/18 Time of Evaluation: 15:47 - Subjective Subjective: WBC count is trending downwards to 1.9K. Will get hematology evaluation. The last temperature was 102 after last night currently patient has a low-grade fever of 100 F. Patient is also complaining of diarrhea. Epigastric and right upper quadrant pain persist for endoscopy in AM. Discussed with the patient the current workup and the diagnosis. Objective - Vital Signs/Intake and Output Vital Signs (last 24 hours): Temp Pulse Resp BP Pulse Ox 100.1 F H 120 H 20 107/75 99 08/16/18 07:00 08/16/18 07:00 08/16/18 07:00 08/16/18 07:00 08/16/18 07:00 Intake and Output: 08/16/18 08/16/18 11:59 23:59 Intake Total 1120 Balance 1120 - Medications Medications: Current Medications Hydromorphone HCl (Dilaudid) 1 mg IVP Q4H PRN PRN Reason: Pain, moderate (4-7) Last Admin: 08/14/18 01:05 Dose: 1 mg Dextrose/Sodium Chloride (Dextrose 5%/0.45% Ns 1000 Ml) 1,000 mls @ 80 mls/hr IV .[id number] JANEE Last Admin: 08/16/18 12:00 Dose: Not Given Meropenem 1 gm/ Sodium (Chloride) 100 mls @ 100 mls/hr IVPB Q12H JANEE; Protocol Last Admin: 08/16/18 14:09 Dose: 100 mls/hr Vancomycin HCl 1 gm/ Sodium (Chloride) 250 mls @ 166.7 mls/hr IVPB Q24H JANEE; Protocol Last Admin: 08/16/18 14:36 Dose: 166.7 mls/hr Acyclovir 500 mg/ Sodium (Chloride) 100 mls @ 100 mls/hr IVPB Q8H JANEE; Protocol Last Admin: 08/16/18 12:54 Dose: 100 mls/hr Ibuprofen (Motrin Tab) 400 mg PO TID PRN PRN Reason: Fever >100.4 F Last Admin: 08/16/18 09:10 Dose: 400 mg Influenza Virus Vaccine (Fluzone Quad [id number]) 60 mcg IM .ONCE ONE Stop: 08/18/18 10:01 Ondansetron HCl (Zofran Inj) 4 mg IVP Q6H PRN PRN Reason: Nausea/Vomiting Last Admin: 08/15/18 00:25 Dose: 4 mg Oseltamivir Phosphate (Tamiflu Cap) 75 mg PO BID [facility]; Protocol Stop: 08/16/18 18:01 Last Admin: 08/16/18 09:08 Dose: 75 mg Pantoprazole Sodium (Protonix Ec Tab) 40 mg PO DAILY [facility] Last Admin: 08/16/18 09:09 Dose: 40 mg Pneumococcal Polyvalent Vaccine (Pneumovax 23 Vaccine) 0.5 ml IM .ONCE ONE Stop: 08/18/18 10:01 Promethazine HCl/Dextromethorphan (Phenergan Dm Syrup) 10 ml PO Q8H PRN PRN Reason: Cough and congestion Last Admin: 08/16/18 09:08 Dose: 10 ml - Labs Labs: 08/16/18 07:12 08/16/18 07:12 PT 13.2 SECONDS (9.7-12.2) H 08/12/18 16:29 INR 1.2 08/12/18 16:29 APTT 27 SECONDS (21-34) 08/12/18 16:29 Assessment and Plan (1) Influenza Status: Acute (2) Epigastric abdominal pain Status: Acute
--- NOTE | 2018-08-16 16:29 | CP.PCM.CON ---
History of Present Illness - History of Present Illness History of Present Illness: 38 yr old woman with nausea vomiting and headache. Full consult dictated and i will state briefly : Miss gonzalez has no nuchal rigidity or kernigs or brudziskis she is quite comfortable but complains of 8/10 we will attempt LP. Past Patient History - Past Social History Smoking Status: Never Smoked - CARDIAC Hx Cardiac Disorders: No Hx Angina: No Hx Atrial Fibrillation: No Hx Cardia Arrhythmia: No Hx Circulatory Problems: No Hx Congestive Heart Failure: No Hx Heart Attack: No Hx Heart Murmur: No Hx Heart Transplant: No Hx Hypercholesterolemia: No Hx Hypertension: No Hx Hypotension: No Hx Internal Defibrillator: No Hx Mitral Valve Prolapse: No Hx Pacemaker: No Hx Peripheral Edema: No Hx Peripheral Vascular Disease: No - PULMONARY Hx Respiratory Disorders: No Hx Asthma: No Hx Bronchitis: No Hx Chronic Obstructive Pulmonary Disease (COPD): No Hx Emphysema: No Hx Lung Cancer: No Hx Pneumonia: No Hx Pulmonary Edema: No Hx Pulmonary Embolism: No Hx Respiratory Aspiration: No Hx Respiratory Tract Infection: No Hx Sleep Apnea: No Hx Tuberculosis: No - NEUROLOGICAL Hx Neurological Disorder: No Hx Alzheimer's Disease: No HX Cerebrovascular Accident: No Hx Dementia: No Hx Dizziness: No Hx Meningitis: No Hx Migraine: No Hx Multiple Sclerosis: No Hx Paralysis: No Hx Parkinson's Disease: No Hx Seizures: No Hx Syncope: No Hx Transient Ischemic Attacks (TIA): No Hx Vertigo: No - HEENT Hx HEENT Problems: No Hx Blind: No Hx Cataracts: No Hx Deafness: No Hx Difficulty Chewing: No Hx Epistaxis: No Hx Glaucoma: No Hx Macular Degeneration: No Hx Sinusitis: No - RENAL Hx Chronic Kidney Disease: No Hx Dialysis: No Hx Kidney Stones: No Hx Neurogenic Bladder: No Hx Pyelonephritis: No Hx Renal (Kidney) Cancer: No Hx Renal Failure: No - ENDOCRINE/METABOLIC Hx Endocrine Disorders: No Hx Adrenal Cancer: No Hx Diabetes Insipidus: No Hx Diabetes Mellitus Type 1: No Hx Diabetes Mellitus Type 2: No Hx Hyperthyroidism: No Hx Hypothyroidism: No Hx Systemic Lupus Erythematosus: No - HEMATOLOGICAL/ONCOLOGICAL Hx Blood Disorders: No Hx AIDS: No Hx Anemia: No Hx Blood Transfusions: No Hx Blood Transfusion Reaction: No Hx Bruising: No Hx Cancer: No Hx Chemotherapy: No Hx Cirrhosis: No Hx Gum Bleeding: No Hx Hemophilia: No Hx Hepatitis A: No Hx Hepatitis B: No Hx Hepatitis C: No Hx Human Immunodeficiency Virus (HIV): No Hx Leukemia: No Hx Metastesis: No Hx Shingles: No Hx Sickle Cell Disease: No Hx Unexplained Bleeding: No Hx von Willebrand's Disease: No - INTEGUMENTARY Hx Dermatological Problems: No Hx Basil Cell: No Hx Harrison: No Hx Cellulitis: No Hx Eczema: No Hx Melanoma: No Hx Psoriasis: No Hx Squamous Cell: No - MUSCULOSKELETAL/RHEUMATOLOGICAL Hx Falls: No Hx Rheumatoid Arthritis: Yes - PSYCHIATRIC Hx Depression: Yes Hx Substance Use: No - SURGICAL HISTORY Hx Cholecystectomy: Yes (2012) - ANESTHESIA Hx Anesthesia: Yes Hx Anesthesia Reactions: No Meds Allergies/Adverse Reactions: Allergies Allergy/AdvReac Type Severity Reaction Status Date / Time No Known Allergies Allergy Verified 08/12/18 09:13 - Medications Medications: Current Medications Hydromorphone HCl (Dilaudid) 1 mg IVP Q4H PRN PRN Reason: Pain, moderate (4-7) Last Admin: 08/14/18 01:05 Dose: 1 mg Dextrose/Sodium Chloride (Dextrose 5%/0.45% Ns 1000 Ml) 1,000 mls @ 80 mls/hr IV .[id number] JANEE Last Admin: 08/16/18 12:00 Dose: Not Given Meropenem 1 gm/ Sodium (Chloride) 100 mls @ 100 mls/hr IVPB Q12H JANEE; Protocol Last Admin: 08/16/18 14:09 Dose: 100 mls/hr Vancomycin HCl 1 gm/ Sodium (Chloride) 250 mls @ 166.7 mls/hr IVPB Q24H JANEE; Protocol Last Admin: 08/16/18 14:36 Dose: 166.7 mls/hr Acyclovir 500 mg/ Sodium (Chloride) 100 mls @ 100 mls/hr IVPB Q8H JANEE; Protocol Last Admin: 08/16/18 12:54 Dose: 100 mls/hr Ibuprofen (Motrin Tab) 400 mg PO TID PRN PRN Reason: Fever >100.4 F Last Admin: 08/16/18 09:10 Dose: 400 mg Influenza Virus Vaccine (Fluzone Quad [id number]) 60 mcg IM .ONCE ONE Stop: 08/18/18 10:01 Ondansetron HCl (Zofran Inj) 4 mg IVP Q6H PRN PRN Reason: Nausea/Vomiting Last Admin: 08/15/18 00:25 Dose: 4 mg Oseltamivir Phosphate (Tamiflu Cap) 75 mg PO BID [facility]; Protocol Stop: 08/16/18 18:01 Last Admin: 08/16/18 09:08 Dose: 75 mg Pantoprazole Sodium (Protonix Ec Tab) 40 mg PO DAILY JANEE Last Admin: 08/16/18 09:09 Dose: 40 mg Pneumococcal Polyvalent Vaccine (Pneumovax 23 Vaccine) 0.5 ml IM .ONCE ONE Stop: 08/18/18 10:01 Promethazine HCl/Dextromethorphan (Phenergan Dm Syrup) 10 ml PO Q8H PRN PRN Reason: Cough and congestion Last Admin: 08/16/18 09:08 Dose: 10 ml Results - Vital Signs Recent Vital Signs: Last Vital Signs Temp 100.1 F H 08/16/18 07:00 Pulse 120 H 08/16/18 07:00 Resp 20 08/16/18 07:00 BP 107/75 08/16/18 07:00 Pulse Ox 99 08/16/18 07:00 - Labs Result Diagrams: 08/16/18 07:12 08/16/18 07:12 Labs: Laboratory Results - last 24 hr 08/14/18 08/15/18 08/15/18 08:33 20:36 20:36 WBC 3.0 L RBC 4.77 Hgb 11.0 Hct 34.3 MCV 71.8 L MCH 23.1 L MCHC 32.3 L RDW 16.2 H Plt Count 137 MPV 9.3 Neut % (Auto) 71.8 Lymph % (Auto) 22.9 Drew % (Auto) 4.5 Eos % (Auto) 0.0 Baso % (Auto) 0.8 Neut # (Auto) 2.1 Lymph # (Auto) 0.7 L Drew # (Auto) 0.1 Eos # (Auto) 0.0 Baso # (Auto) 0.0 Sodium 129 L Potassium 4.0 Chloride 97 L Carbon Dioxide 26 Anion Gap 10 BUN 7 Creatinine 0.7 Est GFR ( Amer) > 60 Est GFR (Non-Af Amer) > 60 Random Glucose 104 Calcium 7.7 L Total Bilirubin 0.8 Direct Bilirubin 0.7 H AST 179 H D ALT 145 H D Alkaline Phosphatase 384 H D Total Protein 7.5 Albumin 3.3 L Globulin 4.1 H Albumin/Globulin Ratio 0.8 L Stool Occult Blood Absolute Lymphs (Flow) 851 % CD4 Cells 37 Absolute CD4 Count 318 L T-Help/Suppress Ratio 1.61 % CD8 Cells 23 Absolute CD8 Count 198 08/16/18 08/16/18 08/16/18 07:12 07:12 13:07 WBC 1.9 L* RBC 4.46 Hgb 10.3 L Hct 31.7 L MCV 71.1 L MCH 23.1 L MCHC 32.5 L RDW 16.2 H Plt Count 144 MPV 9.9 Neut % (Auto) 65.3 Lymph % (Auto) 28.4 Drew % (Auto) 5.7 Eos % (Auto) 0.2 Baso % (Auto) 0.4 Neut # (Auto) 1.2 L Lymph # (Auto) 0.5 L Drew # (Auto) 0.1 Eos # (Auto) 0.0 Baso # (Auto) 0.0 Sodium 131 L Potassium 3.5 L Chloride 97 L Carbon Dioxide 25 Anion Gap 12 BUN 6 L Creatinine 0.5 L Est GFR ( Amer) > 60 Est GFR (Non-Af Amer) > 60 Random Glucose 109 H Calcium 7.8 L Total Bilirubin 0.7 Direct Bilirubin 0.6 H AST 141 H D ALT 123 H Alkaline Phosphatase 314 H Total Protein 7.0 Albumin 3.0 L Globulin 4.0 H Albumin/Globulin Ratio 0.7 L Stool Occult Blood Negative Absolute Lymphs (Flow) % CD4 Cells Absolute CD4 Count T-Help/Suppress Ratio % CD8 Cells Absolute CD8 Count
[2018-08-16 17:49] LABS: C DIFF TOXIN A B POSITIVE (NEGATIVE)
[2018-08-16 18:41] LABS: FECAL LEUKOCYTES NEGATIVE (NEGATIVE)
--- NOTE | 2018-08-16 18:45 | CP.PCM.CON ---
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 diff, with fever, transaminitis, leukopenia, neutropenia, and anemia. The patient notes to fevers and sore throat and was prescribed antibiotics. Her throat improved but then she began to have abdominal pain radiating to her back and continued to have fevers and night sweats. She came to the hospital was noted to be febrile, with transaminitis, anemia, and progressive leukopenia. A CT A/P revealed a splenic lesion with some retroperitoneal lymphadenopathy. She reports to a similar episode about a year ago which required hospitalization at [facility] for 2 weeks. Past medical history: [place] palsy, rheumatoid arthritis Past surgical history: Denies Family history: Unknown cancer in her family Social history: Denies tobacco, alcohol, and illicit drug use. Allergies: NKA Review of systems: All remaining review of systems including HEENT, cardiovascular, respiratory, gastrointestinal, genitourinary, musculoskeletal, dermatologic, neurologic, and psychiatric are negative unless mentioned in the HPI. Past Patient History - Past Social History Smoking Status: Never Smoked - CARDIAC Hx Cardiac Disorders: No Hx Angina: No Hx Atrial Fibrillation: No Hx Cardia Arrhythmia: No Hx Circulatory Problems: No Hx Congestive Heart Failure: No Hx Heart Attack: No Hx Heart Murmur: No Hx Heart Transplant: No Hx Hypercholesterolemia: No Hx Hypertension: No Hx Hypotension: No Hx Internal Defibrillator: No Hx Mitral Valve Prolapse: No Hx Pacemaker: No Hx Peripheral Edema: No Hx Peripheral Vascular Disease: No - PULMONARY Hx Respiratory Disorders: No Hx Asthma: No Hx Bronchitis: No Hx Chronic Obstructive Pulmonary Disease (COPD): No Hx Emphysema: No Hx Lung Cancer: No Hx Pneumonia: No Hx Pulmonary Edema: No Hx Pulmonary Embolism: No Hx Respiratory Aspiration: No Hx Respiratory Tract Infection: No Hx Sleep Apnea: No Hx Tuberculosis: No - NEUROLOGICAL Hx Neurological Disorder: No Hx Alzheimer's Disease: No HX Cerebrovascular Accident: No Hx Dementia: No Hx Dizziness: No Hx Meningitis: No Hx Migraine: No Hx Multiple Sclerosis: No Hx Paralysis: No Hx Parkinson's Disease: No Hx Seizures: No Hx Syncope: No Hx Transient Ischemic Attacks (TIA): No Hx Vertigo: No - HEENT Hx HEENT Problems: No Hx Blind: No Hx Cataracts: No Hx Deafness: No Hx Difficulty Chewing: No Hx Epistaxis: No Hx Glaucoma: No Hx Macular Degeneration: No Hx Sinusitis: No - RENAL Hx Chronic Kidney Disease: No Hx Dialysis: No Hx Kidney Stones: No Hx Neurogenic Bladder: No Hx Pyelonephritis: No Hx Renal (Kidney) Cancer: No Hx Renal Failure: No - ENDOCRINE/METABOLIC Hx Endocrine Disorders: No Hx Adrenal Cancer: No Hx Diabetes Insipidus: No Hx Diabetes Mellitus Type 1: No Hx Diabetes Mellitus Type 2: No Hx Hyperthyroidism: No Hx Hypothyroidism: No Hx Systemic Lupus Erythematosus: No - HEMATOLOGICAL/ONCOLOGICAL Hx Blood Disorders: No Hx AIDS: No Hx Anemia: No Hx Blood Transfusions: No Hx Blood Transfusion Reaction: No Hx Bruising: No Hx Cancer: No Hx Chemotherapy: No Hx Cirrhosis: No Hx Gum Bleeding: No Hx Hemophilia: No Hx Hepatitis A: No Hx Hepatitis B: No Hx Hepatitis C: No Hx Human Immunodeficiency Virus (HIV): No Hx Leukemia: No Hx Metastesis: No Hx Shingles: No Hx Sickle Cell Disease: No Hx Unexplained Bleeding: No Hx von Willebrand's Disease: No - INTEGUMENTARY Hx Dermatological Problems: No Hx Basil Cell: No Hx Harrison: No Hx Cellulitis: No Hx Eczema: No Hx Melanoma: No Hx Psoriasis: No Hx Squamous Cell: No - MUSCULOSKELETAL/RHEUMATOLOGICAL Hx Falls: No Hx Rheumatoid Arthritis: Yes - PSYCHIATRIC Hx Depression: Yes Hx Substance Use: No - SURGICAL HISTORY Hx Cholecystectomy: Yes (2012) - ANESTHESIA Hx Anesthesia: Yes Hx Anesthesia Reactions: No Meds Allergies/Adverse Reactions: Allergies Allergy/AdvReac Type Severity Reaction Status Date / Time No Known Allergies Allergy Verified 08/12/18 09:13 - Medications Medications: Current Medications Hydromorphone HCl (Dilaudid) 1 mg IVP Q4H PRN PRN Reason: Pain, moderate (4-7) Last Admin: 08/14/18 01:05 Dose: 1 mg Dextrose/Sodium Chloride (Dextrose 5%/0.45% Ns 1000 Ml) 1,000 mls @ 80 mls/hr IV .[id number] JANEE Last Admin: 08/16/18 12:00 Dose: Not Given Meropenem 1 gm/ Sodium (Chloride) 100 mls @ 100 mls/hr IVPB Q12H JANEE; Protocol Last Admin: 08/16/18 14:09 Dose: 100 mls/hr Vancomycin HCl 1 gm/ Sodium (Chloride) 250 mls @ 166.7 mls/hr IVPB Q24H JANEE; Protocol Last Admin: 08/16/18 14:36 Dose: 166.7 mls/hr Acyclovir 500 mg/ Sodium (Chloride) 100 mls @ 100 mls/hr IVPB Q8H JANEE; Protocol Last Admin: 08/16/18 12:54 Dose: 100 mls/hr Ibuprofen (Motrin Tab) 400 mg PO TID PRN PRN Reason: Fever >100.4 F Last Admin: 08/16/18 09:10 Dose: 400 mg Influenza Virus Vaccine (Fluzone Quad [id number]) 60 mcg IM .ONCE ONE Stop: 08/18/18 10:01 Ondansetron HCl (Zofran Inj) 4 mg IVP Q6H PRN PRN Reason: Nausea/Vomiting Last Admin: 08/15/18 00:25 Dose: 4 mg Pantoprazole Sodium (Protonix Ec Tab) 40 mg PO DAILY JANEE Last Admin: 08/16/18 09:09 Dose: 40 mg Pneumococcal Polyvalent Vaccine (Pneumovax 23 Vaccine) 0.5 ml IM .ONCE ONE Stop: 08/18/18 10:01 Promethazine HCl/Dextromethorphan (Phenergan Dm Syrup) 10 ml PO Q8H PRN PRN Reason: Cough and congestion Last Admin: 08/16/18 09:08 Dose: 10 ml Vancomycin HCl (Vancocin (Oral Or Rectal Use)) 250 mg PO TID JANEE; Protocol Physical Exam - Head Exam Head Exam: ATRAUMATIC - Eye Exam Eye Exam: Normal appearance - ENT Exam ENT Exam: Mucous Membranes Dry - Respiratory Exam Respiratory Exam: NORMAL BREATHING PATTERN - Cardiovascular Exam Cardiovascular Exam: +S1, +S2 - GI/Abdominal Exam GI & Abdominal Exam: Normal Bowel Sounds - Extremities Exam Extremities exam: Positive for: normal inspection - Neurological Exam Neurological exam: Oriented x3 - Psychiatric Exam Psychiatric exam: Normal Affect, Normal Mood - Skin Skin Exam: Warm Results - Vital Signs Recent Vital Signs: Last Vital Signs Temp 98.9 F 08/16/18 17:09 Pulse 107 H 08/16/18 17:09 Resp 20 08/16/18 17:09 BP 100/68 08/16/18 17:09 Pulse Ox 98 08/16/18 17:09 - Labs Result Diagrams: 08/16/18 07:12 08/16/18 07:12 Labs: Laboratory Results - last 24 hr 08/15/18 08/15/18 08/15/18 19:46 20:36 20:36 WBC 3.0 L RBC 4.77 Hgb 11.0 Hct 34.3 MCV 71.8 L MCH 23.1 L MCHC 32.3 L RDW 16.2 H Plt Count 137 MPV 9.3 Neut % (Auto) 71.8 Lymph % (Auto) 22.9 [place] % (Auto) 4.5 Eos % (Auto) 0.0 Baso % (Auto) 0.8 Neut # (Auto) 2.1 Lymph # (Auto) 0.7 L [place] # (Auto) 0.1 Eos # (Auto) 0.0 Baso # (Auto) 0.0 Sodium 129 L Potassium 4.0 Chloride 97 L Carbon Dioxide 26 Anion Gap 10 BUN 7 Creatinine 0.7 Est GFR ( Amer) > 60 Est GFR (Non-Af Amer) > 60 Random Glucose 104 Calcium 7.7 L Total Bilirubin 0.8 Direct Bilirubin 0.7 H AST 179 H D ALT 145 H D Alkaline Phosphatase 384 H D Total Protein 7.5 Albumin 3.3 L Globulin 4.1 H Albumin/Globulin Ratio 0.8 L Stool Occult Blood Stool Leukocytes, Qual Negative C. difficile Ag & Toxin Positive H 08/16/18 08/16/18 08/16/18 07:12 07:12 13:07 WBC 1.9 L* RBC 4.46 Hgb 10.3 L Hct 31.7 L MCV 71.1 L MCH 23.1 L MCHC 32.5 L RDW 16.2 H Plt Count 144 MPV 9.9 Neut % (Auto) 65.3 Lymph % (Auto) 28.4 [place] % (Auto) 5.7 Eos % (Auto) 0.2 Baso % (Auto) 0.4 Neut # (Auto) 1.2 L Lymph # (Auto) 0.5 L [place] # (Auto) 0.1 Eos # (Auto) 0.0 Baso # (Auto) 0.0 Sodium 131 L Potassium 3.5 L Chloride 97 L Carbon Dioxide 25 Anion Gap 12 BUN 6 L Creatinine 0.5 L Est GFR ( Amer) > 60 Est GFR (Non-Af Amer) > 60 Random Glucose 109 H Calcium 7.8 L Total Bilirubin 0.7 Direct Bilirubin 0.6 H AST 141 H D ALT 123 H Alkaline Phosphatase 314 H Total Protein 7.0 Albumin 3.0 L Globulin 4.0 H Albumin/Globulin Ratio 0.7 L Stool Occult Blood Negative Stool Leukocytes, Qual C. difficile Ag & Toxin Assessment & Plan (1) FUO (fever of unknown origin) Assessment and Plan: undergoing infectious work up C.diff + on antibiotics/antiviral for LP will plan for bone marrow evaluation if no source for fevers Status: Acute (2) Splenic lesion Assessment and Plan: ? hemangioma outpatient PET CT Status: Acute (3) Retroperitoneal lymphadenopathy Assessment and Plan: appear small for percutaneous biopsy outpatient PET CT Status: Acute (4) Leukopenia Assessment and Plan: with mild neutropenia may be related to medication will cont. to monitor Status: Acute (5) Anemia Assessment and Plan: microcytic - no iron deficiency will check hgb electropheresis to rule out hemoglobinopathy likely element of chronic disease Thank you for this interesting consult. Status: Acute
[2018-08-16] MEDS: Vancomycin 125 MG/5 ML SOLN (ORAL/RECTAL) PO SCH (18:55)
[2018-08-17] MEDS: Meropenem 1 GM in Sodium Chloride 0.9% 100 ML IVPB SCH ×2 (01:16→13:00)
[2018-08-17] MEDS: Dextrose 5%/0.45% NS 1,000 ML IV SCH ×3 (01:17→11:25)
[2018-08-17] MEDS: Promethazine DM 12.5 mg-30 mg/10 ml Syrup PO PRN ×2 (02:46→17:08)
[2018-08-17 06:46] LABS: ALB/GLOB RATIO 0.7 (1.0-2.1); ALBUMIN 2.9 g/dL (3.5-5.0); ALT/SGPT 90 U/L (9-52); AST/SGOT 84 U/L (14-36); BILIRUBIN,DIRECT 0.4 mg/dL (0.0-0.4); BLOOD UREA NITROGEN 7 mg/dL (7-17); CALCIUM 7.8 mg/dl (8.6-10.4); GFR NON-AFRICAN AMERICAN > 60
[2018-08-17 07:46] LABS: FOLATE 9.9 ng/mL
[2018-08-17] MEDS ORDERED: Lactated Ringer's 500 ML IV ONE ×2 (08:32)
[2018-08-17] MEDS ORDERED: Lidocaine Hydrochloride 5 ML INJ ONE (08:37)
[2018-08-17] MEDS ORDERED: Propofol 10 mg/ml Inj (20 ML) ONE ×2 (08:37→08:46)
--- NOTE | 2018-08-17 09:23 | CON ---
DATE: 08/16/2018 Neurologic consult called by Dr. Barraza. HISTORY OF PRESENT ILLNESS: This is a 38-year-old woman with past medical history of [place]'s palsy and migraine that has been going on since her teenage years, rheumatoid arthritis, and pituitary mass, this was diagnosed several years ago who presented on 08/12/2018 with three days of pain that radiates to the right side of her mid back, in nature, made worse by position, made better by rest. The patient was treated for strep-positive symptoms. Dr. Barraza consultation yesterday and asked Neurology to do lumbar puncture as she is suspecting meningitis. The patient does not have any Kernig's or Babinski sign. She does not have any discomfort with photophobia. She is able to follow the neurological exam. REVIEW OF SYSTEMS: Positive for headache which rates 8/10 for similar to chronic migraine. CURRENT MEDICATIONS: Currently, she is on acyclovir, vancomycin, and meropenem. PHYSICAL EXAMINATION: NEUROLOGIC EXAM: She is alert, oriented x3. Pupils equal, round, reactive to light. There is no nuchal rigidity. There is no meningismus. There is no Babinski sign. Motor, 5/5 upper and lower bilaterally. Sensory is intact to fine touch and pin. Gait is normal. There is no dysmetria. There is no ataxia. LABORATORY DATA: Labs are as follows: White count 1.9, hemoglobin 10.3, hematocrit 31.7, platelets 144,000. Coags PT is high 13.2, INR 1.2, PTT 27. Chemistry: Sodium 131, potassium 3.5, BUN 6, creatinine 0.5, glucose 109, calcium 7.8. AST and ALT are elevated at 123 and 314 respectively. Urine is negative for infection. Stool occult blood is negative. Toxicology is negative. CD4 count is 318. Hepatitis antigens and ASO negative as well. IMPRESSION: This is a 38-year-old woman with likely meningitis; however, request Dr. Barraza will attempt lumbar puncture. If lumbar puncture is not obtainable, we will refer to Anesthesia and Radiology. PLAN: 1. Continue all antibiotics. 2. Start Imitrex and Toradol. Imitrex should be only given one dose three times a week. as well for migraine prophylaxis. Thank you for this consult. We will continue to follow. Gopal Cardenas MD [facility] # [id number]
[2018-08-17] MEDS: Pantoprazole 40 mg EC Tab PO SCH (10:08)
[2018-08-17] MEDS: Vancomycin 125 MG/5 ML SOLN (ORAL/RECTAL) PO SCH ×3 (10:08→17:25)
[2018-08-17] MEDS: Nystatin 100,000 Units/ml Oral Susp 5 ml UD PO SCH ×4 (10:08→20:59)
--- NOTE | 2018-08-17 13:05 | CP.PCM.PN ---
Subjective - Date & Time of Evaluation Date of Evaluation: 08/17/18 Time of Evaluation: 13:04 - Subjective Subjective: Patient spiked 10 1F last night since then patient does not have any further fever. Patient has diarrhea C. difficile is positive. LP attempted unable to get the fluid. Liver function tests mildly improving. Leukopenia persists Objective - Vital Signs/Intake and Output Vital Signs (last 24 hours): Temp Pulse Resp BP Pulse Ox 96.0 F L 82 18 97/58 L 100 08/17/18 08:55 08/17/18 09:25 08/17/18 09:25 08/17/18 09:25 08/17/18 09:25 Intake and Output: 08/17/18 08/17/18 11:59 23:59 Intake Total 640 Balance 640 - Medications Medications: Current Medications Hydromorphone HCl (Dilaudid) 1 mg IVP Q4H PRN PRN Reason: Pain, moderate (4-7) Last Admin: 08/14/18 01:05 Dose: 1 mg Dextrose/Sodium Chloride (Dextrose 5%/0.45% Ns 1000 Ml) 1,000 mls @ 80 mls/hr IV .[id number] JANEE Last Admin: 08/17/18 11:25 Dose: Not Given Meropenem 1 gm/ Sodium (Chloride) 100 mls @ 100 mls/hr IVPB Q12H JANEE; Protocol Last Admin: 08/17/18 01:16 Dose: 100 mls/hr Vancomycin HCl 1 gm/ Sodium (Chloride) 250 mls @ 166.7 mls/hr IVPB Q24H JANEE; Protocol Last Admin: 08/16/18 14:36 Dose: 166.7 mls/hr Ibuprofen (Motrin Tab) 400 mg PO TID PRN PRN Reason: Fever >100.4 F Last Admin: 08/16/18 22:08 Dose: 400 mg Influenza Virus Vaccine (Fluzone Quad [id number]) 60 mcg IM .ONCE ONE Stop: 08/18/18 10:01 Nystatin (Nystatin Oral Susp) 5 ml PO QID JANEE Last Admin: 08/17/18 10:08 Dose: 5 ml Ondansetron HCl (Zofran Inj) 4 mg IVP Q6H PRN PRN Reason: Nausea/Vomiting Last Admin: 08/15/18 00:25 Dose: 4 mg Pantoprazole Sodium (Protonix Ec Tab) 40 mg PO DAILY [facility] Last Admin: 08/17/18 10:08 Dose: 40 mg Pneumococcal Polyvalent Vaccine (Pneumovax 23 Vaccine) 0.5 ml IM .ONCE ONE Stop: 08/18/18 10:01 Promethazine HCl/Dextromethorphan (Phenergan Dm Syrup) 10 ml PO Q8H PRN PRN Reason: Cough and congestion Last Admin: 08/17/18 02:46 Dose: 10 ml Vancomycin HCl (Vancocin (Oral Or Rectal Use)) 250 mg PO TID [facility]; Protocol Last Admin: 08/17/18 10:08 Dose: 250 mg - Labs Labs: 08/16/18 07:12 08/17/18 06:13 PT 13.2 SECONDS (9.7-12.2) H 08/12/18 16:29 INR 1.2 08/12/18 16:29 APTT 27 SECONDS (21-34) 08/12/18 16:29 Assessment and Plan (1) Influenza Status: Acute (2) Epigastric abdominal pain Status: Acute
--- NOTE | 2018-08-17 13:50 | CP.PCM.PN ---
Subjective - Date & Time of Evaluation Date of Evaluation: 08/17/18 Time of Evaluation: 13:49 - Subjective Subjective: TMAX 101.5 NO DIARRHOEA SINCE AM S/P EGD TODAY WITH BX . PATEL SLIGHTLY BETTER. OCCASINAL COUGH/YELLOWISH EXPECTORATION SEEN BY DR MOLINA( NEUROLOGY ) 08/16/[address] RAM (HEMATOLOGY /ONC )AND APPRECIATED 08/16/18 AWAITING LP. C/O RECURRENT SORE THROATS/AND B/L SUBMANDIBULAR LYMPHADENOPATHY DURING EACH EPISODES /? REACTIVE VS LYMPHOMA. LABS REVIEWED; +VE C.DIFFICILLE TOXIN. WBC 1.9. ON MULTIPLE ANTIBIOTICS. IV MERREM IV VANCOMYCIN IV ACYCLOVIR. TAMIFLU PO VANCOMYCIN FOR CDAD . NYSTATIN S/S QID . SOURCE OF FEVER INFECTIOUS VS OCCULT LYMPHOMA. WILL GET CT NECK AND CT CHEST W/IV CONTRAST R/O LYMPHADENOPATH Objective - Vital Signs/Intake and Output Vital Signs (last 24 hours): Temp Pulse Resp BP Pulse Ox 96.0 F L 82 18 97/58 L 100 08/17/18 08:55 08/17/18 09:25 08/17/18 09:25 08/17/18 09:25 08/17/18 09:25 Intake and Output: 08/17/18 08/17/18 06:59 18:59 Intake Total 1730 Balance 1730 - Medications Medications: Current Medications Hydromorphone HCl (Dilaudid) 1 mg IVP Q4H PRN PRN Reason: Pain, moderate (4-7) Last Admin: 08/14/18 01:05 Dose: 1 mg Dextrose/Sodium Chloride (Dextrose 5%/0.45% Ns 1000 Ml) 1,000 mls @ 80 mls/hr IV .[id number] JANEE Last Admin: 08/17/18 11:25 Dose: Not Given Meropenem 1 gm/ Sodium (Chloride) 100 mls @ 100 mls/hr IVPB Q12H JANEE; Protocol Last Admin: 08/17/18 01:16 Dose: 100 mls/hr Vancomycin HCl 1 gm/ Sodium (Chloride) 250 mls @ 166.7 mls/hr IVPB Q24H JANEE; Protocol Last Admin: 08/16/18 14:36 Dose: 166.7 mls/hr Ibuprofen (Motrin Tab) 400 mg PO TID PRN PRN Reason: Fever >100.4 F Last Admin: 08/16/18 22:08 Dose: 400 mg Influenza Virus Vaccine (Fluzone Quad [id number]) 60 mcg IM .ONCE ONE Stop: 08/18/18 10:01 Nystatin (Nystatin Oral Susp) 5 ml PO QID [facility] Last Admin: 08/17/18 10:08 Dose: 5 ml Ondansetron HCl (Zofran Inj) 4 mg IVP Q6H PRN PRN Reason: Nausea/Vomiting Last Admin: 08/15/18 00:25 Dose: 4 mg Pantoprazole Sodium (Protonix Ec Tab) 40 mg PO DAILY [facility] Last Admin: 08/17/18 10:08 Dose: 40 mg Pneumococcal Polyvalent Vaccine (Pneumovax 23 Vaccine) 0.5 ml IM .ONCE ONE Stop: 08/18/18 10:01 Promethazine HCl/Dextromethorphan (Phenergan Dm Syrup) 10 ml PO Q8H PRN PRN Reason: Cough and congestion Last Admin: 08/17/18 02:46 Dose: 10 ml Vancomycin HCl (Vancocin (Oral Or Rectal Use)) 250 mg PO TID [facility]; Protocol Last Admin: 08/17/18 10:08 Dose: 250 mg - Labs Labs: 08/16/18 07:12 08/17/18 06:13 PT 13.2 SECONDS (9.7-12.2) H 08/12/18 16:29 INR 1.2 08/12/18 16:29 APTT 27 SECONDS (21-34) 08/12/18 16:29 - Constitutional Appears: No Acute Distress - Head Exam Head Exam: NORMAL INSPECTION - Eye Exam Eye Exam: EOMI, PERRL Pupil Exam: NORMAL ACCOMODATION - ENT Exam ENT Exam: Normal Oropharynx - Neck Exam Neck Exam: Lymphadenopathy, Normal Inspection. absent: Thyromegaly - Respiratory Exam Respiratory Exam: Decreased Breath Sounds - Cardiovascular Exam Cardiovascular Exam: Tachycardia, REGULAR RHYTHM, +S1, +S2 - GI/Abdominal Exam GI & Abdominal Exam: Soft, Tenderness (EPIGASTRIC), Normal Bowel Sounds. absent: Rebound - Extremities Exam Extremities Exam: absent: Calf Tenderness, Pedal Edema - Neurological Exam Neurological Exam: Alert, Awake, CN II-XII Intact, Oriented x3, Reflexes Normal - Psychiatric Exam Psychiatric exam: Normal Mood - Skin Skin Exam: Normal Color, Warm Assessment and Plan (1) FUO (fever of unknown origin) Assessment & Plan: W/U IN PROGRESS. CONTINUE IV ABX /AND ANTIVIRALS Status: Acute (2) Abdominal pain Status: Acute (3) Transaminitis Status: Acute (4) Influenza Status: Acute (5) Rheumatoid arthritis Status: Acute
[2018-08-17] MEDS: Potassium Chloride 20 mEq ER Tab PO SCH (15:10)
--- NOTE | 2018-08-17 18:13 | CT ---
Date of service: 08/17/2018 PROCEDURE: CT Chest without contrast HISTORY: R/O LYMPHADENOPATHY AND PNEUMONIA COMPARISON: None available. TECHNIQUE: Contiguous axial images were obtained through the chest without intravenous contrast enhancement. Sagittal and coronal reconstructions were performed. Radiation dose: Total exam DLP = 258.58 mGy-cm. This CT exam was performed using one or more of the following dose reduction techniques: Automated exposure control, adjustment of the mA and/or kV according to patient size, and/or use of iterative reconstruction technique. FINDINGS: LUNGS: Clear lungs. Visualized airway clear MEDIASTINUM: Unremarkable thoracic aorta. No aneurysm. Normal sized heart. Main pulmonary artery unremarkable. No vascular congestion. Small mediastinal lymph nodes short axis less than 1 cm. No appreciable hilar adenopathy although absence of intravenous contrast precludes optimal assessment. No aortic atherosclerotic calcification. PLEURA: Trace right pleural effusion. BONES: No fracture. No destructive lesion. UPPER ABDOMEN: Nonobstructing left renal calculi. OTHER FINDINGS: Left and right axillary adenopathy the preponderance of lymph nodes are 1 cm or less. IMPRESSION: Axillary adenopathy bilaterally right greater than left. Please note the preponderance of lymph nodes are 1 cm or less. Small mediastinal lymph nodes identified. No appreciable hilar adenopathy.
--- NOTE | 2018-08-17 18:21 | CT ---
Date of service: 08/17/2018 PROCEDURE: CT NECK WITHOUT CONTRAST HISTORY: R/O lymphadenopathy and Pneumonia COMPARISON: None available. TECHNIQUE: CT of the neck without intravenous contrast. Coronal and sagittal reformats generated. Radiation dose: Total exam DLP = 313.91 mGy-cm. This CT exam was performed using one or more of the following dose reduction techniques: Automated exposure control, adjustment of the mA and/or kV according to patient size, and/or use of iterative reconstruction technique. FINDINGS: NASOPHARYNX: Unremarkable. SUPRAHYOID NECK: Unremarkable oropharynx, oral cavity, parapharyngeal space and retropharyngeal space. INFRAHYOID NECK: Unremarkable larynx, hypopharynx, and supraglottic space. Vocal cords intact. MASS: None. GLANDS: Parotid and submandibular glands unremarkable. Normal size thyroid gland, without nodule. LYMPH NODES: Enlarged left supraclavicular lymph nodes. The largest 1.3 x 2.2 cm. Smaller enlarged scalene lymph nodes identified on the left. Additional enlarged lymph nodes in the neck on the left level 1B and 2B. Additional enlarged lymph nodes identified bilaterally level 2A chains. These are more prominent in greater number on the left compared to the right. CERVICAL SPINE: No fracture or focal lesion. OTHER FINDINGS: None. IMPRESSION: Lymphadenopathy as described above. The larger more numerous lymph nodes are on the left compared to the right. Please see report for additional information, details and measurements
[2018-08-17] MEDS: Acyclovir 500 MG in Sodium Chloride 0.9% 100 ML IVPB SCH (20:59)
--- NOTE | 2018-08-17 21:44 | CP.PCM.PN ---
Subjective - Date & Time of Evaluation Date of Evaluation: 08/17/18 Time of Evaluation: 17:20 - Subjective Subjective: Neurology Consultation Follow-Up: Pt not evaluated by neuro COMPUTER CONSULTANT today. Please see Plan for LP recommendations as discussed with Dr. Charlton. Objective - Vital Signs/Intake and Output Vital Signs (last 24 hours): Temp Pulse Resp BP Pulse Ox 96.0 F L 82 18 97/58 L 100 08/17/18 08:55 08/17/18 09:25 08/17/18 09:25 08/17/18 09:25 08/17/18 09:25 Intake and Output: 08/17/18 08/18/18 18:59 06:59 Intake Total 1020 Balance 1020 - Medications Medications: Current Medications Hydromorphone HCl (Dilaudid) 1 mg IVP Q4H PRN PRN Reason: Pain, moderate (4-7) Last Admin: 08/14/18 01:05 Dose: 1 mg Dextrose/Sodium Chloride (Dextrose 5%/0.45% Ns 1000 Ml) 1,000 mls @ 80 mls/hr IV .[id number] JANEE Last Admin: 08/17/18 11:25 Dose: Not Given Meropenem 1 gm/ Sodium (Chloride) 100 mls @ 100 mls/hr IVPB Q12H JANEE; Protocol Last Admin: 08/17/18 13:00 Dose: 100 mls/hr Vancomycin HCl 1 gm/ Sodium (Chloride) 250 mls @ 166.7 mls/hr IVPB Q24H JANEE; Protocol Last Admin: 08/17/18 14:30 Dose: 166.7 mls/hr Acyclovir 500 mg/ Sodium (Chloride) 100 mls @ 100 mls/hr IVPB Q8H JANEE; Protocol Last Admin: 08/17/18 20:59 Dose: 100 mls/hr Ibuprofen (Motrin Tab) 400 mg PO TID PRN PRN Reason: Fever >100.4 F Last Admin: 08/17/18 20:25 Dose: 400 mg Influenza Virus Vaccine (Fluzone Quad [id number]) 60 mcg IM .ONCE ONE Stop: 08/18/18 10:01 Nystatin (Nystatin Oral Susp) 5 ml PO QID JANEE Last Admin: 08/17/18 20:59 Dose: 5 ml Ondansetron HCl (Zofran Inj) 4 mg IVP Q6H PRN PRN Reason: Nausea/Vomiting Last Admin: 08/15/18 00:25 Dose: 4 mg Pantoprazole Sodium (Protonix Ec Tab) 40 mg PO DAILY JANEE Last Admin: 08/17/18 10:08 Dose: 40 mg Pneumococcal Polyvalent Vaccine (Pneumovax 23 Vaccine) 0.5 ml IM .ONCE ONE Stop: 08/18/18 10:01 Potassium Chloride (K-Dur 20 Meq Er Tab) 40 meq PO DAILY JANEE Last Admin: 08/17/18 15:10 Dose: 40 meq Promethazine HCl/Dextromethorphan (Phenergan Dm Syrup) 10 ml PO Q8H PRN PRN Reason: Cough and congestion Last Admin: 08/17/18 02:46 Dose: 10 ml Vancomycin HCl (Vancocin (Oral Or Rectal Use)) 250 mg PO TID JANEE; Protocol Last Admin: 08/17/18 17:25 Dose: 250 mg - Labs Labs: 08/16/18 07:12 08/17/18 06:13 PT 13.2 SECONDS (9.7-12.2) H 08/12/18 16:29 INR 1.2 08/12/18 16:29 APTT 27 SECONDS (21-34) 08/12/18 16:29 Assessment and Plan - Assessment and Plan (Free Text) Assessment: Ms. Abraham is a 38 y/o female admitted for fever of unknown origin, r/o meningitis. -LP was attempted by Dr. Cardenas, neuro, on 08/16/18, but was unsuccessful. -We are recommending that radiology/IR be consulted for LP under fluoroscopy. -Per Dr. Barraza's request, the following are to be ordered when pt does have successful LP done: CSF for: cell count; differential; PCR for herpes; PCR for TB;fungal smear and culture; glucose; VDRL; cryptococcal antigen. -Further orders per primary team and ID. -Neuro will continue to follow up. -Please notify us if we can be of assistance to expedite LP through radiology. Discussed with Dr. Charlton. Thank you for this consultation.
--- NOTE | 2018-08-17 22:52 | CP.PCM.PN ---
Subjective - Date & Time of Evaluation Date of Evaluation: 08/17/18 Time of Evaluation: 18:00 - Subjective Subjective: Still having fevers. For repeat LP Objective - Vital Signs/Intake and Output Vital Signs (last 24 hours): Temp Pulse Resp BP Pulse Ox 96.0 F L 82 18 97/58 L 100 08/17/18 08:55 08/17/18 09:25 08/17/18 09:25 08/17/18 09:25 08/17/18 09:25 Intake and Output: 08/17/18 08/18/18 18:59 06:59 Intake Total 1020 Balance 1020 - Medications Medications: Current Medications Hydromorphone HCl (Dilaudid) 1 mg IVP Q4H PRN PRN Reason: Pain, moderate (4-7) Last Admin: 08/14/18 01:05 Dose: 1 mg Dextrose/Sodium Chloride (Dextrose 5%/0.45% Ns 1000 Ml) 1,000 mls @ 80 mls/hr IV .[id number] JANEE Last Admin: 08/17/18 11:25 Dose: Not Given Meropenem 1 gm/ Sodium (Chloride) 100 mls @ 100 mls/hr IVPB Q12H JANEE; Protocol Last Admin: 08/17/18 13:00 Dose: 100 mls/hr Vancomycin HCl 1 gm/ Sodium (Chloride) 250 mls @ 166.7 mls/hr IVPB Q24H JANEE; Protocol Last Admin: 08/17/18 14:30 Dose: 166.7 mls/hr Acyclovir 500 mg/ Sodium (Chloride) 100 mls @ 100 mls/hr IVPB Q8H JANEE; Protocol Last Admin: 08/17/18 20:59 Dose: 100 mls/hr Ibuprofen (Motrin Tab) 400 mg PO TID PRN PRN Reason: Fever >100.4 F Last Admin: 08/17/18 20:25 Dose: 400 mg Influenza Virus Vaccine (Fluzone Quad [id number]) 60 mcg IM .ONCE ONE Stop: 08/18/18 10:01 Nystatin (Nystatin Oral Susp) 5 ml PO QID JANEE Last Admin: 08/17/18 20:59 Dose: 5 ml Ondansetron HCl (Zofran Inj) 4 mg IVP Q6H PRN PRN Reason: Nausea/Vomiting Last Admin: 08/15/18 00:25 Dose: 4 mg Pantoprazole Sodium (Protonix Ec Tab) 40 mg PO DAILY JANEE Last Admin: 08/17/18 10:08 Dose: 40 mg Pneumococcal Polyvalent Vaccine (Pneumovax 23 Vaccine) 0.5 ml IM .ONCE ONE Stop: 08/18/18 10:01 Potassium Chloride (K-Dur 20 Meq Er Tab) 40 meq PO DAILY JANEE Last Admin: 08/17/18 15:10 Dose: 40 meq Promethazine HCl/Dextromethorphan (Phenergan Dm Syrup) 10 ml PO Q8H PRN PRN Reason: Cough and congestion Last Admin: 08/17/18 02:46 Dose: 10 ml Vancomycin HCl (Vancocin (Oral Or Rectal Use)) 250 mg PO TID [facility]; Protocol Last Admin: 08/17/18 17:25 Dose: 250 mg - Labs Labs: 08/16/18 07:12 08/17/18 06:13 PT 13.2 SECONDS (9.7-12.2) H 08/12/18 16:29 INR 1.2 08/12/18 16:29 APTT 27 SECONDS (21-34) 08/12/18 16:29 - Head Exam Head Exam: ATRAUMATIC - Eye Exam Eye Exam: Normal appearance - ENT Exam ENT Exam: Mucous Membranes Dry - Respiratory Exam Respiratory Exam: NORMAL BREATHING PATTERN - Cardiovascular Exam Cardiovascular Exam: +S1, +S2 - GI/Abdominal Exam GI & Abdominal Exam: Normal Bowel Sounds Assessment and Plan (1) FUO (fever of unknown origin) Assessment & Plan: infectious w/u in progress bone marrow evaluation if infectious w/u negative Status: Acute (2) Splenic lesion Assessment & Plan: outpatient PET CT Status: Acute (3) Retroperitoneal lymphadenopathy Assessment & Plan: outpatient PET CT Status: Acute (4) Leukopenia Assessment & Plan: suspect medication induced Status: Acute (5) Anemia Assessment & Plan: chronic disease Status: Acute
[2018-08-17 23:31] LABS: MCH 23.5 pg (27.0-33.0); MCV 73.1 fL (80.0-100.0)
[2018-08-17 23:50] VITALS: RESP 20
[2018-08-18] MEDS: Dextrose 5%/0.45% NS 1,000 ML IV SCH ×2 (01:00→02:38)
[2018-08-18] MEDS: Meropenem 1 GM in Sodium Chloride 0.9% 100 ML IVPB SCH ×2 (01:58→12:04)
[2018-08-18] MEDS: Acyclovir 500 MG in Sodium Chloride 0.9% 100 ML IVPB SCH ×2 (04:48→12:51)
--- NOTE | 2018-08-18 07:32 | CP.PCM.PN ---
<Andre Hill - Last Filed: 08/18/18 09:08> Subjective - Date & Time of Evaluation Date of Evaluation: 08/18/18 Time of Evaluation: 07:20 - Subjective Subjective: PGY-4 GI Fellow Prog Note Pt lying in bed when seen this AM. States still feels warm but did not spike temp over last 24 hrs. Still with multiple loose stools, non bloody at this time with some mild crampy epigastric pain. 5 point ROS negative other than stated above Objective - Vital Signs/Intake and Output Vital Signs (last 24 hours): Temp Pulse Resp BP Pulse Ox 98.1 F 90 20 92/61 L 99 08/17/18 23:45 08/17/18 23:45 08/17/18 23:45 08/17/18 23:45 08/17/18 23:45 Intake and Output: 08/18/18 08/18/18 06:59 18:59 Intake Total 1000 Output Total 240 Balance 760 - Medications Medications: Current Medications Hydromorphone HCl (Dilaudid) 1 mg IVP Q4H PRN PRN Reason: Pain, moderate (4-7) Last Admin: 08/14/18 01:05 Dose: 1 mg Dextrose/Sodium Chloride (Dextrose 5%/0.45% Ns 1000 Ml) 1,000 mls @ 80 mls/hr IV .[id number] JANEE Last Admin: 08/18/18 02:38 Dose: 80 mls/hr Meropenem 1 gm/ Sodium (Chloride) 100 mls @ 100 mls/hr IVPB Q12H JANEE; Protocol Last Admin: 08/18/18 01:58 Dose: 100 mls/hr Vancomycin HCl 1 gm/ Sodium (Chloride) 250 mls @ 166.7 mls/hr IVPB Q24H JANEE; Protocol Last Admin: 08/17/18 14:30 Dose: 166.7 mls/hr Acyclovir 500 mg/ Sodium (Chloride) 100 mls @ 100 mls/hr IVPB Q8H JANEE; Protocol Last Admin: 08/18/18 04:48 Dose: 100 mls/hr Ibuprofen (Motrin Tab) 400 mg PO TID PRN PRN Reason: Fever >100.4 F Last Admin: 08/17/18 20:25 Dose: 400 mg Influenza Virus Vaccine (Fluzone Quad [id number]) 60 mcg IM .ONCE ONE Stop: 08/18/18 10:01 Nystatin (Nystatin Oral Susp) 5 ml PO QID [facility] Last Admin: 08/17/18 20:59 Dose: 5 ml Ondansetron HCl (Zofran Inj) 4 mg IVP Q6H PRN PRN Reason: Nausea/Vomiting Last Admin: 08/15/18 00:25 Dose: 4 mg Pantoprazole Sodium (Protonix Ec Tab) 40 mg PO DAILY [facility] Last Admin: 08/17/18 10:08 Dose: 40 mg Pneumococcal Polyvalent Vaccine (Pneumovax 23 Vaccine) 0.5 ml IM .ONCE ONE Stop: 08/18/18 10:01 Potassium Chloride (K-Dur 20 Meq Er Tab) 40 meq PO DAILY [facility] Last Admin: 08/17/18 15:10 Dose: 40 meq Promethazine HCl/Dextromethorphan (Phenergan Dm Syrup) 10 ml PO Q8H PRN PRN Reason: Cough and congestion Last Admin: 08/17/18 02:46 Dose: 10 ml Vancomycin HCl (Vancocin (Oral Or Rectal Use)) 250 mg PO TID [facility]; Protocol Last Admin: 08/17/18 17:25 Dose: 250 mg - Labs Labs: 08/16/18 07:12 08/17/18 06:13 PT 13.2 SECONDS (9.7-12.2) H 08/12/18 16:29 INR 1.2 08/12/18 16:29 APTT 27 SECONDS (21-34) 08/12/18 16:29 - Constitutional Appears: Non-toxic, No Acute Distress - Head Exam Head Exam: ATRAUMATIC, NORMAL INSPECTION - Eye Exam Eye Exam: EOMI. absent: Scleral icterus - ENT Exam ENT Exam: Mucous Membranes Dry - Respiratory Exam Respiratory Exam: NORMAL BREATHING PATTERN. absent: Accessory Muscle Use - GI/Abdominal Exam GI & Abdominal Exam: Soft, Tenderness (minimally in epigastrum w/o guarding), Normal Bowel Sounds. absent: Bruit, Distended, Firm, Guarding, Rigid, Mass, Organomegaly, Pulsatile Mass Assessment and Plan - Assessment and Plan (Free Text) Assessment: # Abdominal pain, Fevers, Leukopenia, Anemia - Splenic mass, retroperitoneal lymphadenopathy; concerning for malignancy or opportunistic infection given immunosuppressed state with adalimumab. # Cdiff infection: First episode. Does not meet severe criteria at this time as was febrile, leukopenic prior. On Vancomycin started in PM of 08/16/18. # Elevated liver tests: Hepatitis panel, WALDEMAR, Anti-SM, AMA negative. RUQ US fatty infiltration vs parenchyma disease. s/p CCx. Will r/u further causes of intrisitic liver diseases with below w/u. May need liver biopsy eventually if no cause found and liver tests remain elevated. # Blood in stool: EGD with gastritis, likely CSPY as outpatient # Influenza: H/o recent infection. Started on oseltaivir # RA on Adalimumab Plan: - Cont Vanco for Cdiff - Further Abx per ID/primary - F/u EGD biopsies - F/u planned LP - Hematology considering BMBx pending course - Checking Fe studies, Ceruloplasmin, TTG and IgA lvls, alpha-1 phenotype, IgG4 - Continue PPI - Lactose free diet - Consider fungal cultures, [id number] - Trend Liver tests - Supportive care with IVF. Avoid hepatotoxic medications. - Recommend outpatient GI follow up with Dr. Roberts for CSPY Thank you for the consult ; will sign off. Please call if questions Pt seen and examined with Dr. Roberts; please see attestation for further recs/changes. Andre Hill, PGY-4 <Humble Roberts - Last Filed: 08/18/18 10:47> Objective - Vital Signs/Intake and Output Vital Signs (last 24 hours): Temp Pulse Resp BP Pulse Ox 98.1 F 90 20 92/61 L 99 08/17/18 23:45 08/17/18 23:45 08/17/18 23:45 08/17/18 23:45 08/17/18 23:45 Intake and Output: 08/18/18 08/18/18 06:59 18:59 Intake Total 1000 Output Total 240 Balance 760 - Medications Medications: Current Medications Hydromorphone HCl (Dilaudid) 1 mg IVP Q4H PRN PRN Reason: Pain, moderate (4-7) Last Admin: 08/14/18 01:05 Dose: 1 mg Meropenem 1 gm/ Sodium (Chloride) 100 mls @ 100 mls/hr IVPB Q12H JANEE; Protocol Last Admin: 08/18/18 01:58 Dose: 100 mls/hr Vancomycin HCl 1 gm/ Sodium (Chloride) 250 mls @ 166.7 mls/hr IVPB Q24H JANEE; Protocol Last Admin: 08/17/18 14:30 Dose: 166.7 mls/hr Acyclovir 500 mg/ Sodium (Chloride) 100 mls @ 100 mls/hr IVPB Q8H JANEE; Protocol Last Admin: 08/18/18 04:48 Dose: 100 mls/hr Ibuprofen (Motrin Tab) 400 mg PO TID PRN PRN Reason: Fever >100.4 F Last Admin: 08/17/18 20:25 Dose: 400 mg Nystatin (Nystatin Oral Susp) 5 ml PO QID JANEE Last Admin: 08/18/18 09:47 Dose: 5 ml Ondansetron HCl (Zofran Inj) 4 mg IVP Q6H PRN PRN Reason: Nausea/Vomiting Last Admin: 08/15/18 00:25 Dose: 4 mg Pantoprazole Sodium (Protonix Ec Tab) 40 mg PO DAILY JANEE Last Admin: 08/18/18 09:45 Dose: 40 mg Potassium Chloride (K-Dur 20 Meq Er Tab) 40 meq PO DAILY JANEE Last Admin: 08/18/18 09:46 Dose: 40 meq Promethazine HCl/Dextromethorphan (Phenergan Dm Syrup) 10 ml PO Q8H PRN PRN Reason: Cough and congestion Last Admin: 08/18/18 09:55 Dose: 10 ml Vancomycin HCl (Vancocin (Oral Or Rectal Use)) 250 mg PO TID JANEE; Protocol Last Admin: 08/18/18 09:47 Dose: 250 mg - Labs Labs: 08/16/18 07:12 08/17/18 06:13 PT 13.2 SECONDS (9.7-12.2) H 08/12/18 16:29 INR 1.2 08/12/18 16:29 APTT 27 SECONDS (21-34) 08/12/18 16:29 Attending/Attestation - Attestation I have personally seen and examined this patient.: Yes I have fully participated in the care of the patient.: Yes I have reviewed all pertinent clinical information, including history, physical exam and plan: Yes Notes (Text): 08/18/18 10:42 I have seen and examined patient with GI fellow. No acute events overnight, she is seen resting in bed comfortably. She continues to report ongoing diarrhea with nausea but denies vomiting, rectal bleeding. No reported fever over past 24 hours. Tolerating PO diet without difficulty. Diarrhea - c-difficile colitis Fever, unknown origin Transaminitis Abdominal pain - s/p EGD yesterday showing mild gastritis Rheumatoid arthritis on adalimumab - Diet as tolerated - Continue with antibiotic therapy as per ID - LFTs trending down, continue to monitor - Await biopsy results from EGD - Follow up neurological recommendations including potential repeat LP attempt - Follow up hematology recommendations including potential BM biopsy - No further planned GI interventions as this time, will sign off case. Please reconsult as necessary, thank you.
[2018-08-18 08:14] LABS: ALB/GLOB RATIO 0.7 (1.0-2.1); BILIRUBIN,DIRECT 0.4 mg/dL (0.0-0.4)
[2018-08-18] MEDS: Pantoprazole 40 mg EC Tab PO SCH (09:45)
[2018-08-18] MEDS: Potassium Chloride 20 mEq ER Tab PO SCH (09:46)
[2018-08-18] MEDS: Vancomycin 125 MG/5 ML SOLN (ORAL/RECTAL) PO SCH ×3 (09:47→18:07)
[2018-08-18] MEDS: Nystatin 100,000 Units/ml Oral Susp 5 ml UD PO SCH ×4 (09:47→21:57)
[2018-08-18] MEDS: Promethazine DM 12.5 mg-30 mg/10 ml Syrup PO PRN (09:55)
[2018-08-18] MEDS ORDERED: Influenza Vaccine 60 MCG/0.5 ML SYR (3 yr & up) IM ONE (10:00)
[2018-08-18] MEDS ORDERED: Pneumococcal 23-Valent Vaccine IM ONE (10:00)
--- NOTE | 2018-08-18 14:04 | CP.PCM.PN ---
Subjective - Date & Time of Evaluation Date of Evaluation: 08/18/18 Time of Evaluation: 14:02 - Subjective Subjective: No fever for the last 24 hours. Patient still has loose BM getting treatment for C. difficile Further workup showed the patient probably has a lymphoma awaiting hematology input GI service has signed off We will discuss with ID if patient needs LP. Objective - Vital Signs/Intake and Output Vital Signs (last 24 hours): Temp Pulse Resp BP Pulse Ox 98.1 F 90 20 92/61 L 99 08/17/18 23:45 08/17/18 23:45 08/17/18 23:45 08/17/18 23:45 08/17/18 23:45 Intake and Output: 08/18/18 08/18/18 11:59 23:59 Intake Total 1000 Output Total 240 Balance 760 - Medications Medications: Current Medications Hydromorphone HCl (Dilaudid) 1 mg IVP Q4H PRN PRN Reason: Pain, moderate (4-7) Last Admin: 08/14/18 01:05 Dose: 1 mg Meropenem 1 gm/ Sodium (Chloride) 100 mls @ 100 mls/hr IVPB Q12H JANEE; Protocol Last Admin: 08/18/18 12:04 Dose: 100 mls/hr Vancomycin HCl 1 gm/ Sodium (Chloride) 250 mls @ 166.7 mls/hr IVPB Q24H JANEE; Protocol Last Admin: 08/17/18 14:30 Dose: 166.7 mls/hr Acyclovir 500 mg/ Sodium (Chloride) 100 mls @ 100 mls/hr IVPB Q8H JANEE; Protocol Last Admin: 08/18/18 12:51 Dose: 100 mls/hr Ibuprofen (Motrin Tab) 400 mg PO TID PRN PRN Reason: Fever >100.4 F Last Admin: 08/17/18 20:25 Dose: 400 mg Nystatin (Nystatin Oral Susp) 5 ml PO QID JANEE Last Admin: 08/18/18 13:10 Dose: 5 ml Ondansetron HCl (Zofran Inj) 4 mg IVP Q6H PRN PRN Reason: Nausea/Vomiting Last Admin: 08/15/18 00:25 Dose: 4 mg Pantoprazole Sodium (Protonix Ec Tab) 40 mg PO DAILY JANEE Last Admin: 08/18/18 09:45 Dose: 40 mg Potassium Chloride (K-Dur 20 Meq Er Tab) 40 meq PO DAILY JANEE Last Admin: 08/18/18 09:46 Dose: 40 meq Promethazine HCl/Dextromethorphan (Phenergan Dm Syrup) 10 ml PO Q8H PRN PRN Reason: Cough and congestion Last Admin: 08/18/18 09:55 Dose: 10 ml Vancomycin HCl (Vancocin (Oral Or Rectal Use)) 250 mg PO TID JANEE; Protocol Last Admin: 08/18/18 09:47 Dose: 250 mg - Labs Labs: 08/16/18 07:12 08/17/18 06:13 PT 13.2 SECONDS (9.7-12.2) H 08/12/18 16:29 INR 1.2 08/12/18 16:29 APTT 27 SECONDS (21-34) 08/12/18 16:29 Assessment and Plan (1) Influenza Status: Acute (2) Epigastric abdominal pain Status: Acute
[2018-08-18 16:11] LABS: HEMOGLOBIN A 96.9 Percent (>96.0); HEMOGLOBIN A2 2.1 Percent (1.8-3.5)
[2018-08-18 20:14] LABS: BLOOD UREA NITROGEN 8 mg/dL (7-17); CALCIUM 8.3 mg/dl (8.6-10.4); GFR NON-AFRICAN AMERICAN 56
--- NOTE | 2018-08-18 21:52 | CP.PCM.PN ---
Subjective - Date & Time of Evaluation Date of Evaluation: 08/18/18 Time of Evaluation: 20:00 - Subjective Subjective: Feeling better will not require bone marrow evaluation given fevers appear to have resolved noted ~ 1cm lymphadenopathy; outpatient PET CT scan and outpatient biopsy based on PET findings will repeat CBC in AM Objective - Vital Signs/Intake and Output Vital Signs (last 24 hours): Temp Pulse Resp BP Pulse Ox 98.7 F 114 H 20 111/76 100 08/18/18 16:01 08/18/18 16:01 08/18/18 16:01 08/18/18 16:01 08/18/18 16:01 Intake and Output: 08/18/18 08/19/18 18:59 06:59 Intake Total 950 Balance 950 - Medications Medications: Current Medications Hydromorphone HCl (Dilaudid) 1 mg IVP Q4H PRN PRN Reason: Pain, moderate (4-7) Last Admin: 08/14/18 01:05 Dose: 1 mg Ibuprofen (Motrin Tab) 400 mg PO TID PRN PRN Reason: Fever >100.4 F Last Admin: 08/17/18 20:25 Dose: 400 mg Nystatin (Nystatin Oral Susp) 5 ml PO QID JANEE Last Admin: 08/18/18 18:06 Dose: 5 ml Ondansetron HCl (Zofran Inj) 4 mg IVP Q6H PRN PRN Reason: Nausea/Vomiting Last Admin: 08/15/18 00:25 Dose: 4 mg Pantoprazole Sodium (Protonix Ec Tab) 40 mg PO DAILY JANEE Last Admin: 08/18/18 09:45 Dose: 40 mg Potassium Chloride (K-Dur 20 Meq Er Tab) 40 meq PO DAILY JANEE Last Admin: 08/18/18 09:46 Dose: 40 meq Promethazine HCl/Dextromethorphan (Phenergan Dm Syrup) 10 ml PO Q8H PRN PRN Reason: Cough and congestion Last Admin: 08/18/18 09:55 Dose: 10 ml Vancomycin HCl (Vancocin (Oral Or Rectal Use)) 250 mg PO TID JANEE; Protocol Last Admin: 08/18/18 18:07 Dose: 250 mg - Labs Labs: 08/16/18 07:12 08/18/18 19:50 PT 13.2 SECONDS (9.7-12.2) H 08/12/18 16:29 INR 1.2 08/12/18 16:29 APTT 27 SECONDS (21-34) 08/12/18 16:29 - Head Exam Head Exam: ATRAUMATIC - Eye Exam Eye Exam: Normal appearance - ENT Exam ENT Exam: Mucous Membranes Dry - Respiratory Exam Respiratory Exam: NORMAL BREATHING PATTERN - Cardiovascular Exam Cardiovascular Exam: +S1, +S2 - GI/Abdominal Exam GI & Abdominal Exam: Normal Bowel Sounds Assessment and Plan (1) FUO (fever of unknown origin) Assessment & Plan: resolved with antibiotics c.diff treatment Status: Acute (2) Splenic lesion Assessment & Plan: outpatient PET CT Status: Acute (3) Retroperitoneal lymphadenopathy Assessment & Plan: outpatient PET CT Status: Acute (4) Leukopenia Assessment & Plan: repeat CBC in AM suspect related to meds Status: Acute (5) Anemia Assessment & Plan: chronic disease and possible alpha thal trait Status: Acute
--- NOTE | 2018-08-18 22:46 | CP.PCM.PN ---
Subjective - Date & Time of Evaluation Date of Evaluation: 08/18/18 Time of Evaluation: 22:46 - Subjective Subjective: AFEBRILE, VSS ABDOMINAL PAIN IMPROVED BUT STILL COMPLAINS OF BLOATING AND FULLNESS AFTER EATING. C/O 7-8 LOOSE BOWEL MOVEMENTS OF WATERY CONSISTENCY. STATES HER HEADACHES HAVE IMPROVED. IV INFILTRATED. LEFT HAND IS SLIGHTLY SWOLLEN DUE TO iv INFILTRATION. DOES NOT WANT iv TO BE REINSERTED LABS/RADIOLOGY REVIEWED. CT OF THE NECK. +VE LA LT SUPRACLAVICULAR >2.2CM. (see full report ) CT CHEST -+VE LYMPHADENOPATHY B/L AXILLARY/AND SMALL MEDIASTINAL LYMPHADENOPATHY. lUNGS CLEAR. LFTS; TRENDING DOWN TRANSAMINITIS. Objective - Vital Signs/Intake and Output Vital Signs (last 24 hours): Temp Pulse Resp BP Pulse Ox 98.7 F 114 H 20 111/76 100 08/18/18 16:01 08/18/18 16:01 08/18/18 16:01 08/18/18 16:01 08/18/18 16:01 Intake and Output: 08/18/18 08/19/18 18:59 06:59 Intake Total 950 300 Balance 950 300 - Medications Medications: Current Medications Hydromorphone HCl (Dilaudid) 1 mg IVP Q4H PRN PRN Reason: Pain, moderate (4-7) Last Admin: 08/14/18 01:05 Dose: 1 mg Ibuprofen (Motrin Tab) 400 mg PO TID PRN PRN Reason: Fever >100.4 F Last Admin: 08/17/18 20:25 Dose: 400 mg Nystatin (Nystatin Oral Susp) 5 ml PO QID [facility] Last Admin: 08/18/18 21:57 Dose: 5 ml Ondansetron HCl (Zofran Inj) 4 mg IVP Q6H PRN PRN Reason: Nausea/Vomiting Last Admin: 08/15/18 00:25 Dose: 4 mg Pantoprazole Sodium (Protonix Ec Tab) 40 mg PO DAILY [facility] Last Admin: 08/18/18 09:45 Dose: 40 mg Potassium Chloride (K-Dur 20 Meq Er Tab) 40 meq PO DAILY [facility] Last Admin: 08/18/18 09:46 Dose: 40 meq Promethazine HCl/Dextromethorphan (Phenergan Dm Syrup) 10 ml PO Q8H PRN PRN Reason: Cough and congestion Last Admin: 08/18/18 09:55 Dose: 10 ml Vancomycin HCl (Vancocin (Oral Or Rectal Use)) 250 mg PO TID JANEE; Protocol Last Admin: 08/18/18 18:07 Dose: 250 mg - Labs Labs: 08/16/18 07:12 08/18/18 19:50 PT 13.2 SECONDS (9.7-12.2) H 08/12/18 16:29 INR 1.2 08/12/18 16:29 APTT 27 SECONDS (21-34) 08/12/18 16:29 - Constitutional Appears: No Acute Distress - Head Exam Head Exam: NORMAL INSPECTION - Eye Exam Eye Exam: EOMI, PERRL - ENT Exam ENT Exam: Normal Oropharynx - Neck Exam Neck Exam: Lymphadenopathy, Normal Inspection. absent: Meningismus - Respiratory Exam Respiratory Exam: Clear to Ausculation Bilateral, NORMAL BREATHING PATTERN - Cardiovascular Exam Cardiovascular Exam: Tachycardia, REGULAR RHYTHM, +S1, +S2 - GI/Abdominal Exam GI & Abdominal Exam: Soft, Tenderness (MILD EPIGASTRIC TENDERNESS.), Normal Bowel Sounds. absent: Organomegaly - Extremities Exam Extremities Exam: Normal Capillary Refill (LEFT HAND iv INFILTRATED SLIGHTLY SWOLLEN DORSUM OF THE HAND.). absent: Calf Tenderness, Pedal Edema - Neurological Exam Neurological Exam: Alert, Awake, CN II-XII Intact, Normal Gait, Oriented x3, Reflexes Normal - Psychiatric Exam Psychiatric exam: Normal Mood - Skin Skin Exam: Normal Color, Warm Assessment and Plan (1) FUO (fever of unknown origin) Assessment & Plan: SOURCE OF FEVER INFECTIOUS VS OCCULT LYMPHOMA. GENERALIZED LYMPHADENOPATHY WITH SPLENOMEGALY /? SPLENIC MASS/HEMANGIOMA. NOW WITH 7-8 LOOSE WATERY STOOLS +VE C. DIFFICILE TOXIN. SINCE FEVERS HAVE RESOLVED AND SYMPTOMS IMPROVED. WILL CONSIDER STOPPING ALL ANTIBIOTICS ALL CULTURES ARE NEGATIVE TO DATE. OBSERVE FOR NEXT 24 HOURS FOR FEVER AND RECULTURE IF NEEDED. SINCE HEADACHES HAVE IMPROVED,AND NO MENINGEAL SIGNS AT PRESENT, WE'LL HOLD OFF SPINAL TAP/AND iv ACYCLOVIR. WILL DISCUSS WITH NEURO OBSERVE CLOSELY NEURO STATUS OFF ANTIBIOTICS/AND ANTIVIRALS. WILL CONTINUE BY MOUTH VANCOMYCIN INCREASED DOSE TO 250 BY MOUTH 4 TIMES A DAY. CASE DISCUSSED WITH STAFF/ PMD. HEMATOLOGY ONBOARD. HIS RECOMMENDATIONS NOTED AND WILL DISCUSS WITH THE PATIENT. PATIENT MAY NEED PETSCAN /LN BX OR BM/BX OUTPATIENT OUTLINED BY ONCOLOGIST. Status: Acute (2) Abdominal pain Assessment & Plan: STATUS POST EGD AND BX GASTRIC ANTRUM/AND DUODENUM FOR CELIAC DISEASE.. GI FOLLOW-UP APPRECIATED. fOLLOW-UP BIOPSY Status: Acute (3) Transaminitis Assessment & Plan: IMPROVING. Status: Acute (4) Influenza Assessment & Plan: S/P INFLUENZA. oFF tAMIFLU. Status: Acute (5) Rheumatoid arthritis Assessment & Plan: PATIENT ON HUMIRA PER RHEUMATOLOGY EVERY 2 WEEKS. pATIENT TO FOLLOW-UP WITH RHEUMATOLOGY ON DISCHARGE Status: Acute
[2018-08-19 06:32] LABS: ALB/GLOB RATIO 0.8 (1.0-2.1); ALBUMIN 3.2 g/dL (3.5-5.0); BILIRUBIN,DIRECT 0.4 mg/dL (0.0-0.4)
[2018-08-19] MEDS ORDERED: Vancomycin 125 MG/5 ML SOLN (ORAL/RECTAL) PO SCH (10:00)
[2018-08-19] MEDS: Vancomycin 125 MG/5 ML SOLN (ORAL/RECTAL) PO SCH ×2 (10:20→14:02)
[2018-08-19] MEDS: Potassium Chloride 20 mEq ER Tab PO SCH (10:20)
[2018-08-19] MEDS: Pantoprazole 40 mg EC Tab PO SCH (10:20)
[2018-08-19] MEDS: Nystatin 100,000 Units/ml Oral Susp 5 ml UD PO SCH ×2 (10:20→14:03)
--- NOTE | 2018-08-19 14:14 | CP.PCM.PN ---
Subjective - Date & Time of Evaluation Date of Evaluation: 08/19/18 Time of Evaluation: 14:13 - Subjective Subjective: Patient has no fever for the last 48 hours. Patient is feeling very tired and fatigued mild cough and diarrhea. Patient is on by mouth antibiotics only or IV antibiotics are discontinued. Today's CBC is pending. Rest of the workup will be done as an outpatient will discuss with the ID and hematology for discharge Objective - Vital Signs/Intake and Output Vital Signs (last 24 hours): Temp Pulse Resp BP Pulse Ox 98.6 F 100 H 20 108/68 98 08/19/18 04:15 08/19/18 04:15 08/19/18 04:15 08/19/18 04:15 08/19/18 04:15 Intake and Output: 08/19/18 08/19/18 11:59 23:59 Intake Total 360 Balance 360 - Medications Medications: Current Medications Ibuprofen (Motrin Tab) 400 mg PO TID PRN PRN Reason: Fever >100.4 F Last Admin: 08/17/18 20:25 Dose: 400 mg Nystatin (Nystatin Oral Susp) 5 ml PO QID [facility] Last Admin: 08/19/18 14:03 Dose: 5 ml Ondansetron HCl (Zofran Inj) 4 mg IVP Q6H PRN PRN Reason: Nausea/Vomiting Last Admin: 08/15/18 00:25 Dose: 4 mg Pantoprazole Sodium (Protonix Ec Tab) 40 mg PO DAILY [facility] Last Admin: 08/19/18 10:20 Dose: 40 mg Promethazine HCl/Dextromethorphan (Phenergan Dm Syrup) 10 ml PO Q8H PRN PRN Reason: Cough and congestion Last Admin: 08/18/18 09:55 Dose: 10 ml Vancomycin HCl (Vancocin (Oral Or Rectal Use)) 500 mg PO TID [facility]; Protocol Last Admin: 08/19/18 14:02 Dose: 500 mg - Labs Labs: 08/16/18 07:12 08/18/18 19:50 PT 13.2 SECONDS (9.7-12.2) H 08/12/18 16:29 INR 1.2 08/12/18 16:29 APTT 27 SECONDS (21-34) 08/12/18 16:29 Assessment and Plan (1) Influenza Status: Acute (2) Epigastric abdominal pain Status: Acute
--- NOTE | 2018-08-19 14:43 | CP.PCM.PN ---
Subjective - Date & Time of Evaluation Date of Evaluation: 08/19/18 Time of Evaluation: 14:43 - Subjective Subjective: AFEBRILE X 48 HOURS VSS FEELING MUCH BETTER C/O FEW LOOSE BMS. DENIES ABDOMINAL PAIN DENIES HEAD ACHES OFF IV ABX ON PO VANCOMYCIN FOR C. DIFFICILE COLITIS. LABS REVIEWED. ALL CULTURES -VE TO DATE. LFTS IMPROVING WBC -4.3 IMPROVING PLT N, Objective - Vital Signs/Intake and Output Vital Signs (last 24 hours): Temp Pulse Resp BP Pulse Ox 98.2 F 102 H 20 102/62 97 08/19/18 07:45 08/19/18 07:45 08/19/18 07:45 08/19/18 07:45 08/19/18 07:45 Intake and Output: 08/19/18 08/19/18 06:59 18:59 Intake Total 660 360 Balance 660 360 - Medications Medications: Current Medications Ibuprofen (Motrin Tab) 400 mg PO TID PRN PRN Reason: Fever >100.4 F Last Admin: 08/17/18 20:25 Dose: 400 mg Nystatin (Nystatin Oral Susp) 5 ml PO QID [facility] Last Admin: 08/19/18 14:03 Dose: 5 ml Ondansetron HCl (Zofran Inj) 4 mg IVP Q6H PRN PRN Reason: Nausea/Vomiting Last Admin: 08/15/18 00:25 Dose: 4 mg Pantoprazole Sodium (Protonix Ec Tab) 40 mg PO DAILY [facility] Last Admin: 08/19/18 10:20 Dose: 40 mg Promethazine HCl/Dextromethorphan (Phenergan Dm Syrup) 10 ml PO Q8H PRN PRN Reason: Cough and congestion Last Admin: 08/18/18 09:55 Dose: 10 ml Vancomycin HCl (Vancocin (Oral Or Rectal Use)) 500 mg PO TID [facility]; Protocol Last Admin: 08/19/18 14:02 Dose: 500 mg - Labs Labs: 08/16/18 07:12 08/18/18 19:50 PT 13.2 SECONDS (9.7-12.2) H 08/12/18 16:29 INR 1.2 08/12/18 16:29 APTT 27 SECONDS (21-34) 08/12/18 16:29 - Constitutional Appears: No Acute Distress - Head Exam Head Exam: NORMAL INSPECTION - Eye Exam Eye Exam: EOMI, PERRL - ENT Exam ENT Exam: Normal Oropharynx - Neck Exam Neck Exam: Lymphadenopathy, Normal Inspection. absent: Meningismus - Respiratory Exam Respiratory Exam: NORMAL BREATHING PATTERN - Cardiovascular Exam Cardiovascular Exam: REGULAR RHYTHM, +S1, +S2 - GI/Abdominal Exam GI & Abdominal Exam: Soft, Normal Bowel Sounds. absent: Tenderness - Extremities Exam Extremities Exam: Normal Capillary Refill. absent: Calf Tenderness, Pedal Edema - Neurological Exam Neurological Exam: Alert, Awake, CN II-XII Intact, Oriented x3, Reflexes Normal - Psychiatric Exam Psychiatric exam: Normal Mood - Skin Skin Exam: Normal Color, Warm Assessment and Plan (1) FUO (fever of unknown origin) Assessment & Plan: fevers resolved. DOUBT SOURCE OF FEVER INFECTIOUS . R/O OCCULT LYMPHOMA +VE GENERALIZED LYMPHADENOPATHY. GENERALIZED LYMPHADENOPATHY WITH SPLENOMEGALY /? SPLENIC MASS/HEMANGIOMA. NOW WITH LOOSE WATERY STOOLS +VE C. DIFFICILE TOXIN. SINCE HEADACHES HAVE IMPROVED,AND NO MENINGEAL SIGNS AT PRESENT, WE'LL HOLD OFF SPINAL TAP. WILL CONTINUE BY MOUTH VANCOMYCIN INCREASED DOSE TO 250 BY MOUTH 4 TIMES A DAY X 14DAYS CASE DISCUSSED WITH STAFF/ PMD. DISCUSSED WITH THE PATIENT.PATIENT HAS 7-YEAR-OLD DAUGHTER AT HOME. eXPLAINED TO HER THAT SHE CAN GET COLITIS. ENTERIC PRECAUTIONS SUGGESTED AT HOME. PATIENT MAY NEED PETSCAN /LN BX OR BM/BX OUTPATIENT OUTLINED BY ONCOLOGIST. PT TO F/U WITH HER PMD OPD. WILL SIGN OFF THE CASE.THANK YOU Status: Acute (2) Abdominal pain Status: Acute (3) Transaminitis Status: Acute (4) Influenza Status: Acute (5) Rheumatoid arthritis Status: Acute
[2018-08-19 14:44] LABS: BASO % 0.8 % (0.0-2.0); EOS # 0.1 K/uL (0.0-0.7); HEMOGLOBIN 9.9 g/dL (11.0-16.0); LYMPH # 1.2 K/uL (1.0-4.3); LYMPH % 27.1 % (20.0-40.0); MEAN CELL VOLUME 71.6 fL (81.0-99.0); MEAN CORPUSCULAR HEMOGLOBIN 22.8 pg (27.0-31.0); MEAN CORPUSCULAR HGB CONC 31.8 g/dL (33.0-37.0); MONO # 0.7 K/uL (0.0-0.8); MONO % 16.2 % (0.0-10.0); NEUT # 2.3 K/uL (1.8-7.0); NEUT % 53.9 % (50.0-75.0); RBC 4.36 Mil/uL (3.80-5.20); RED CELL DISTRIBUTION WIDTH 17.3 % (11.5-14.5)
[2018-08-19 14:46] LABS: WHITE BLOOD COUNT 4.3 K/uL (4.8-10.8)
--- NOTE | 2018-08-19 14:47 | CP.PCM.PN ---
Subjective - Date & Time of Evaluation Date of Evaluation: 08/19/18 Time of Evaluation: 14:47 - Subjective Subjective: Neurology Consultation Follow-Up Note: Ms. Abraham was evaluated this afternoon. Neuro team attempted LP over the weekend that was unsuccessful. Pt admits to resolution of headache. She denies dizziness, visual changes, chest pain, sob, n/v. Has loose BMs but she is + c- dif and already on Vanco PO. No acute overnight events. Objective - Vital Signs/Intake and Output Vital Signs (last 24 hours): Temp Pulse Resp BP Pulse Ox 98.2 F 102 H 20 102/62 97 08/19/18 07:45 08/19/18 07:45 08/19/18 07:45 08/19/18 07:45 08/19/18 07:45 Intake and Output: 08/19/18 08/19/18 06:59 18:59 Intake Total 660 360 Balance 660 360 - Medications Medications: Current Medications Ibuprofen (Motrin Tab) 400 mg PO TID PRN PRN Reason: Fever >100.4 F Last Admin: 08/17/18 20:25 Dose: 400 mg Nystatin (Nystatin Oral Susp) 5 ml PO QID [facility] Last Admin: 08/19/18 14:03 Dose: 5 ml Ondansetron HCl (Zofran Inj) 4 mg IVP Q6H PRN PRN Reason: Nausea/Vomiting Last Admin: 08/15/18 00:25 Dose: 4 mg Pantoprazole Sodium (Protonix Ec Tab) 40 mg PO DAILY [facility] Last Admin: 08/19/18 10:20 Dose: 40 mg Promethazine HCl/Dextromethorphan (Phenergan Dm Syrup) 10 ml PO Q8H PRN PRN Reason: Cough and congestion Last Admin: 08/18/18 09:55 Dose: 10 ml Vancomycin HCl (Vancocin (Oral Or Rectal Use)) 500 mg PO TID [facility]; Protocol Last Admin: 08/19/18 14:02 Dose: 500 mg - Labs Labs: 08/19/18 14:38 08/18/18 19:50 PT 13.2 SECONDS (9.7-12.2) H 08/12/18 16:29 INR 1.2 08/12/18 16:29 APTT 27 SECONDS (21-34) 08/12/18 16:29 - Constitutional Appears: Well, Non-toxic, No Acute Distress - Head Exam Head Exam: ATRAUMATIC, NORMAL INSPECTION, NORMOCEPHALIC - Eye Exam Eye Exam: EOMI, Normal appearance, PERRL Pupil Exam: PERRL - ENT Exam ENT Exam: Mucous Membranes Moist, Normal Exam - Neck Exam Neck Exam: Full ROM, Normal Inspection - Respiratory Exam Respiratory Exam: NORMAL BREATHING PATTERN - Extremities Exam Extremities Exam: Full ROM, Normal Inspection - Neurological Exam Neurological Exam: Alert, Awake, CN II-XII Intact, Normal Gait, Oriented x3, Reflexes Normal Neuro motor strength exam: Left Upper Extremity: 5, Right Upper Extremity: 5, Left Lower Extremity: 5, Right Lower Extremity: 5 - Psychiatric Exam Psychiatric exam: Normal Affect, Normal Mood - Skin Skin Exam: Normal Color Assessment and Plan (1) FUO (fever of unknown origin) Assessment & Plan: Ms. Abraham has resolution of her h/a and has been afebrile for at least 48 hours. -Further management per attending and hematology. -Discussed with Dr. Beulah Barraza further need for LP; none at this time per her. -We will sign off; reconsult prn. Discussed with Dr. Charlton Thank you this consult. Status: Acute
[2018-08-19 16:56] VITALS: BP 109/76; PULSE 99; TEMP 98.8; O2SAT 99
--- NOTE | 2018-08-19 17:04 | CP.PCM.PN ---
Subjective - Date & Time of Evaluation Date of Evaluation: 08/19/18 Time of Evaluation: 17:05 - Subjective Subjective: Alert and orientedx3, denies abdominal pain or acute diarrhea. Objective - Vital Signs/Intake and Output Vital Signs (last 24 hours): Temp Pulse Resp BP Pulse Ox 98.8 F 99 H 20 109/76 99 08/19/18 16:00 08/19/18 16:00 08/19/18 16:00 08/19/18 16:00 08/19/18 16:00 Intake and Output: 08/19/18 08/19/18 06:59 18:59 Intake Total 660 360 Balance 660 360 - Medications Medications: Current Medications Ibuprofen (Motrin Tab) 400 mg PO TID PRN PRN Reason: Fever >100.4 F Last Admin: 08/17/18 20:25 Dose: 400 mg Nystatin (Nystatin Oral Susp) 5 ml PO QID [facility] Last Admin: 08/19/18 14:03 Dose: 5 ml Ondansetron HCl (Zofran Inj) 4 mg IVP Q6H PRN PRN Reason: Nausea/Vomiting Last Admin: 08/15/18 00:25 Dose: 4 mg Pantoprazole Sodium (Protonix Ec Tab) 40 mg PO DAILY [facility] Last Admin: 08/19/18 10:20 Dose: 40 mg Promethazine HCl/Dextromethorphan (Phenergan Dm Syrup) 10 ml PO Q8H PRN PRN Reason: Cough and congestion Last Admin: 08/18/18 09:55 Dose: 10 ml Vancomycin HCl (Vancocin (Oral Or Rectal Use)) 500 mg PO TID [facility]; Protocol Last Admin: 08/19/18 14:02 Dose: 500 mg - Labs Labs: 08/19/18 14:38 08/18/18 19:50 PT 13.2 SECONDS (9.7-12.2) H 08/12/18 16:29 INR 1.2 08/12/18 16:29 APTT 27 SECONDS (21-34) 08/12/18 16:29 Assessment and Plan - Assessment and Plan (Free Text) Assessment: Patient remains afebrile, alert and orientedx3, no distress. Cleared by DR Barraza, plan to discharge home on vancomycin 250mg po x14 days for c-diff coliltis. Adv ised to follow up with the PMD in and DR Finch in 1 week. Advised to maintain contact precautions and wash hands frequently. Discharged home as per DR Bateman.
--- NOTE | 2018-08-20 10:42 | CP.PCM.PN ---
Subjective - Date & Time of Evaluation Date of Evaluation: 08/19/18 Time of Evaluation: 12:00 - Subjective Subjective: Afebrile for about 48 hours Objective - Vital Signs/Intake and Output Vital Signs (last 24 hours): Temp Pulse Resp BP Pulse Ox 98.8 F 99 H 20 109/76 99 08/19/18 16:00 08/19/18 16:00 08/19/18 16:00 08/19/18 16:00 08/19/18 16:00 - Labs Labs: 08/19/18 14:38 08/18/18 19:50 PT 13.2 SECONDS (9.7-12.2) H 08/12/18 16:29 INR 1.2 08/12/18 16:29 APTT 27 SECONDS (21-34) 08/12/18 16:29 - Head Exam Head Exam: ATRAUMATIC - Eye Exam Eye Exam: Normal appearance - ENT Exam ENT Exam: Mucous Membranes Dry - Respiratory Exam Respiratory Exam: NORMAL BREATHING PATTERN - Cardiovascular Exam Cardiovascular Exam: +S1, +S2 - GI/Abdominal Exam GI & Abdominal Exam: Normal Bowel Sounds Assessment and Plan (1) FUO (fever of unknown origin) Assessment & Plan: resolved with antibiotics c.diff treatment Status: Acute (2) Splenic lesion Assessment & Plan: outpatient PET CT Status: Acute (3) Retroperitoneal lymphadenopathy Assessment & Plan: outpatient PET CT Status: Acute (4) Leukopenia Assessment & Plan: improved Status: Acute (5) Anemia Assessment & Plan: chronic disease and possible alpha thal trait Status: Acute
--- NOTE | 2018-08-20 14:48 | CP.PCM.DIS ---
Provider - Provider Date of Admission: 08/14/18 10:51 Attending physician: Sruthi Bateman MD Consults: 08/13/18 14:56 Physician Consult Routine Comment: Consulting Provider: Corazon Barraza Consulting Physician: Corazon Barraza Reason for Consult: fever 08/15/18 19:49 Neurology Consult Routine Comment: Consulting Provider: Gopal Cardenas Consulting Physician: Gopal Cardenas Reason for Consult: R/O meningitis 08/16/18 12:43 Hematology Oncology Consult Routine Comment: Consulting Provider: Vladimir Finch Consulting Physician: Vladimir Finch Reason for Consult: leucopenia, r/o lymphoma Time Spent in preparation of Discharge (in minutes): 36 Diagnosis - Discharge Diagnosis (1) Influenza Status: Acute (2) Epigastric abdominal pain Status: Acute Hospital Course - Lab Results Lab Results: Micro Results 08/18/18 11:51 Sputum Gram Stain - Final 08/18/18 11:51 Sputum Sputum Culture - Final NORMAL ORAL ELVIS 08/14/18 14:03 Blood-Venous Blood Culture - Final NO GROWTH AFTER 5 DAYS 08/14/18 14:03 Blood-Venous Gram Stain - Final TEST NOT PERFORMED 08/14/18 13:47 Blood-Venous Blood Culture - Final NO GROWTH AFTER 5 DAYS 08/14/18 13:47 Blood-Venous Gram Stain - Final TEST NOT PERFORMED 08/13/18 21:55 Blood-Venous Blood Culture - Final NO GROWTH AFTER 5 DAYS 08/13/18 21:55 Blood-Venous Gram Stain - Final TEST NOT PERFORMED 08/13/18 21:55 Blood-Venous Blood Culture - Final NO GROWTH AFTER 5 DAYS 08/13/18 21:55 Blood-Venous Gram Stain - Final TEST NOT PERFORMED 08/16/18 13:07 Stool Stool Culture - Final NO SALMONELLA, SHIGELLA OR CAMPYLOBACTER ISOLATED. 08/15/18 06:00 Throat Group A Strep Throat Culture - Final NO BETA STREP GROUP A ISOLATED. 08/13/18 21:55 Urine,Clean Catch Urine Culture - Final <10,000 CFU/ML. MULTIPLE SPECIES. PROBABLE CONTAMINATION. 08/14/18 07:25 Throat Group A Strep Throat Culture - Final NO BETA STREP GROUP A ISOLATED. Most Recent Lab Values WBC 4.3 K/uL (4.8-10.8) L D 08/19/18 14:38 RBC 4.36 Mil/uL (3.80-5.20) 08/19/18 14:38 Hgb 9.9 g/dL (11.0-16.0) L 08/19/18 14:38 Hct 31.3 % (34.0-47.0) L 08/19/18 14:38 MCV 71.6 fL (81.0-99.0) L 08/19/18 14:38 MCH 22.8 pg (27.0-31.0) L 08/19/18 14:38 MCHC 31.8 g/dL (33.0-37.0) L 08/19/18 14:38 RDW 17.3 % (11.5-14.5) H 08/19/18 14:38 Plt Count 249 K/uL (130-400) D 08/19/18 14:38 MPV 9.0 fL (7.2-11.7) 08/19/18 14:38 Neut % (Auto) 53.9 % (50.0-75.0) 08/19/18 14:38 Lymph % (Auto) 27.1 % (20.0-40.0) 08/19/18 14:38 [place] % (Auto) 16.2 % (0.0-10.0) H 08/19/18 14:38 Eos % (Auto) 2.0 % (0.0-4.0) 08/19/18 14:38 Baso % (Auto) 0.8 % (0.0-2.0) 08/19/18 14:38 Neut # (Auto) 2.3 K/uL (1.8-7.0) 08/19/18 14:38 Lymph # (Auto) 1.2 K/uL (1.0-4.3) 08/19/18 14:38 [place] # (Auto) 0.7 K/uL (0.0-0.8) 08/19/18 14:38 Eos # (Auto) 0.1 K/uL (0.0-0.7) 08/19/18 14:38 Baso # (Auto) 0.0 K/uL (0.0-0.2) 08/19/18 14:38 ESR 63 mm/hr (0-20) H 08/14/18 08:33 Retic Count 0.5 % (0.5-1.5) 08/17/18 06:13 Hemoglobin A 96.9 Percent (>96.0) 08/17/18 06:13 Hemoglobin A2 2.1 Percent (1.8-3.5) 08/17/18 06:13 Hemoglobin C 0.0 Percent (0.0-0.0) 08/17/18 06:13 Hemoglobin F () <1.0 Percent (<2.0) 08/17/18 06:13 Hemoglobin S 0.0 Percent (0.0-0.0) 08/17/18 06:13 Variant Hemoglobin 0.0 Percent (0.0-0.0) 08/17/18 06:13 Hemoglobinopathy Red Blood Count 3.98 Mill/mcL (3.80-5.10) 08/17/18 06:13 Hemoglobinopathy Hct 29.1 % (35.0-45.0) L 08/17/18 06:13 Hemoglobinopathy Hgb 9.3 g/dL (11.7-15.5) L 08/17/18 06:13 Hemoglobinopathy MCV 73.1 fL (80.0-100.0) L 08/17/18 06:13 Hemoglobinopathy MCH 23.5 pg (27.0-33.0) L 08/17/18 06:13 Hemoglobinopathy RDW 17.1 % (11.0-15.0) H 08/17/18 06:13 Hemoglobinopathy Interp See note 08/17/18 06:13 PT 13.2 SECONDS (9.7-12.2) H 08/12/18 16:29 INR 1.2 08/12/18 16:29 APTT 27 SECONDS (21-34) 08/12/18 16:29 Sodium 132 mmol/L (132-148) 08/18/18 19:50 Potassium 4.0 mmol/L (3.6-5.2) 08/18/18 19:50 Chloride 100 mmol/L (98-107) 08/18/18 19:50 Carbon Dioxide 22 mmol/L (22-30) 08/18/18 19:50 Anion Gap 13 (10-20) 08/18/18 19:50 BUN 8 mg/dL (7-17) 08/18/18 19:50 Creatinine 1.1 mg/dL (0.7-1.2) 08/18/18 19:50 Est GFR ( Amer) > 60 08/18/18 19:50 Est GFR (Non-Af Amer) 56 08/18/18 19:50 Random Glucose 92 mg/dL (65-105) 08/18/18 19:50 Calcium 8.3 mg/dl (8.6-10.4) L 08/18/18 19:50 Ferritin 183.0 ng/mL 08/15/18 11:01 Total Bilirubin 0.4 mg/dL (0.2-1.3) 08/19/18 06:07 Direct Bilirubin 0.4 mg/dL (0.0-0.4) 08/19/18 06:07 AST 71 U/L (14-36) H 08/19/18 06:07 ALT 75 U/L (9-52) H 08/19/18 06:07 Alkaline Phosphatase 235 U/L (38-126) H 08/19/18 06:07 Lactate Dehydrogenase 1009 U/L (313-618) H 08/17/18 06:13 C-React Prot High Sens > 15.00 mg/L (1.00-3.00) H 08/14/18 08:33 Total Protein 7.0 g/dL (6.3-8.3) 08/19/18 06:07 Albumin 3.2 g/dL (3.5-5.0) L 08/19/18 06:07 Globulin 3.8 gm/dL (2.2-3.9) 08/19/18 06:07 Albumin/Globulin Ratio 0.8 (1.0-2.1) L 08/19/18 06:07 Lipase 191 U/L (23-300) 08/12/18 11:12 Vitamin B12 767 pg/mL (239-931) 08/17/18 06:13 Folate 9.9 ng/mL 08/17/18 06:13 Urine Color Yellow (YELLOW) 08/13/18 21:55 Urine Clarity Clear (Clear) 08/13/18 21:55 Urine pH 8.0 (5.0-8.0) 08/13/18 21:55 Ur Specific [place] 1.005 (1.003-1.030) 08/13/18 21:55 Urine Protein Negative mg/dL (NEGATIVE) 08/13/18 21:55 Urine Glucose (UA) Normal mg/dL (Normal) 08/13/18 21:55 Urine Ketones Negative mg/dL (NEGATIVE) 08/13/18 21:55 Urine Blood 1+ (NEGATIVE) H 08/13/18 21:55 Urine Nitrate Negative (NEGATIVE) 08/13/18 21:55 Urine Bilirubin Negative (NEGATIVE) 08/13/18 21:55 Urine Urobilinogen Normal mg/dL (0.2-1.0) 08/13/18 21:55 Ur Leukocyte Esterase Neg Aj/uL (Negative) 08/13/18 21:55 Urine WBC (Auto) < 1 /hpf (0-5) 08/13/18 21:55 Urine RBC (Auto) 4 /hpf (0-3) H 08/13/18 21:55 Ur Squamous Epith Cells 3 /hpf (0-5) 08/13/18 21:55 Urine Bacteria Rare (<OCC) 08/13/18 21:55 Urine HCG, Qual Negative (NEGATIVE) 08/17/18 07:49 Stool Occult Blood Negative (NEGATIVE) 08/16/18 13:07 Stool Leukocytes, Qual Negative (NEGATIVE) 08/15/18 19:46 Acetaminophen < 10.0 ug/mL (10.0-30.0) L 08/12/18 16:29 Copper 149 mcg/dL (70-175) 08/15/18 11:01 WALDEMAR 6 Profile Negative (NEGATIVE) 08/14/18 08:33 Proteinase 3 (PR3) <1.0 AI (<1.0) 08/15/18 11:01 Myeloperoxidase Ab <1.0 AI (<1.0) 08/15/18 11:01 Double Strand DNA Ab 1 IU/mL 08/14/18 08:33 Anti-Mitochondrial Ab Negative (Negative) 08/12/18 19:03 Anti-Smooth Muscle Ab Negative (Negative) 08/12/18 19:03 Absolute Lymphs (Flow) 851 Cells/mcL (850-3900) 08/14/18 08:33 % CD4 Cells 37 Percent (30-61) 08/14/18 08:33 Absolute CD4 Count 318 Cells/mcL (490-1740) L 08/14/18 08:33 T-Help/Suppress Ratio 1.61 Ratio (0.86-5.00) 08/14/18 08:33 % CD8 Cells 23 Percent (12-42) 08/14/18 08:33 Absolute CD8 Count 198 Cells/mcL (180-1170) 08/14/18 08:33 RPR Nonreactive (NONREACTIVE) 08/15/18 11:01 C. difficile Ag & Toxin Positive (NEGATIVE) H 08/15/18 19:46 Cryptococcus Ag Negative (NEGATIVE) 08/16/18 07:12 Giardia Antigen Not detected (Not Detected) 08/16/18 13:15 Hepatitis A IgM Ab Negative (NEGATIVE) 08/12/18 19:03 Hep Bs Antigen Negative (NEGATIVE) 08/12/18 19:03 Hep B Core IgM Ab Negative (NEGATIVE) 08/12/18 19:03 Hepatitis C Antibody Negative (NEGATIVE) 08/12/18 19:03 HIV 1&2 Antibody Screen Negative (NEGATIVE) 08/14/18 08:33 Influenza Typ A,B (EIA) Negative for flu a/b (NEGATIVE) 08/12/18 19:21 Anti-Staphylolysin O Negative (NEGATIVE) 08/14/18 08:33 Anti-Streptolysin O Ab Negative (NEGATIVE) 08/14/18 13:47 Grp A Beta Strep Ag Negative (NEGATIVE) 08/15/18 00:02 TB Test Mitogen - Nil IU/mL (()) 08/16/18 06:20 TB Test (QFT) TNP 08/16/18 06:20 - Hospital Course Hospital Course: Patient is a 38 y/o F with PMHx of Wilkerson's palsy, migraines, RA, unknown pituitary issue who presents today for 3 days of epigastric pain that radiates to the right side of the mid back. Of note patient was treated for positive Strep last week with Amoxocillin and went back to the doctor yesterday and was found to have positive flu and given Tamiflu. Patient says the abdominal pain is sharp in nature and rates is 10/10. Patient says the pain is worse with movement and deep breathing. Patient has nausea but no vomiting and is able to tolerate diet. Patient also admits to burning with urination for the past 4 days Patient was admitted on the medical floors. Infectious disease consult was obtained and patient was put on IV antibiotics after culturing. Gastroen terology consult was also obtained because of the abnormal liver function tests. Patient continued to have spiking temperature of 101-10 2F. All the cultures and septic workup was negative including chest x-ray. CAT scan of abdomen showed liver disease. As per the GI service the diagnosis was hepatic disease secondary to patient's amoxicillin. Hepatitis profile was negative HIV was negative. Hematology consult was obtained as the CAT scan shows retroperitoneal and hilar lymphadenopathy. Patient was worked up for lymphoma. Patient also had diarrhea and C. difficile was positive and patient was given by mouth vancomycin with improvement. Prior to discharge 48 hours prior as patient had no fevers. Patient was multiple times emphasized to follow-up with the clerk guide Dr. Chambers for further workup for lymphoma for PET scan as an outpatient. Patient has received Humira and is a high risk of lymphoma. The cause of the fever in the hospital was still unknown and the working diagnosis is probably secondary to lymphoma. This was conveyed to the patient that we still do not have the diagnosis and will have to follow with a clerk guide and his primary doctor for further workup for lymphoma. Discharge Exam - Head Exam Head Exam: ATRAUMATIC Discharge Plan - Discharge Medications Prescriptions: Saccharomyces Boulardi [Florastor] 250 mg PO BID 14 Days cap Vancomycin HCl [Vancocin 125 MG Cap] 250 mg PO Q6H 14 Days capsule - Follow Up Plan Condition: STABLE Disposition: HOME/ ROUTINE
== END 2018-08-19 17:53 | disposition home or self-care (01) | DRG 419 ==
LOC: C.ER 09:01 → C.9E 15:48 → C.3T 22:20 → OBSVTOIN 08-14 10:51
PROVIDERS: ADMIT Internal Medicine Cardiovascular Disease; ATTEND Internal Medicine Cardiovascular Disease
PROC: 0DB68ZX Excision of Stomach, Via Natural or Artificial Opening Endoscopic, Diagnostic (ICD-10-PCS; 2018-08-17)
PROC: 0DB58ZX Excision of Esophagus, Via Natural or Artificial Opening Endoscopic, Diagnostic (ICD-10-PCS; 2018-08-17)
PROC: 0DB48ZX Excision of Esophagogastric Junction, Via Natural or Artificial Opening Endoscopic, Diagnostic (ICD-10-PCS; 2018-08-17)
PROC: 0DB98ZX Excision of Duodenum, Via Natural or Artificial Opening Endoscopic, Diagnostic (ICD-10-PCS; principal; 2018-08-17 08:36)
DX: R50.9 Fever, unspecified (principal); A04.72 Enterocolitis due to Clostridium difficile, not specified as recurrent; J11.1 Influenza due to unidentified influenza virus with other respiratory manifestations; R59.1 Generalized enlarged lymph nodes; K29.50 Unspecified chronic gastritis without bleeding; R94.5 Abnormal results of liver function studies; D18.03 Hemangioma of intra-abdominal structures; D64.9 Anemia, unspecified; D70.9 Neutropenia, unspecified; D73.89 Other diseases of spleen; T36.0X5A Adverse effect of penicillins, initial encounter; K83.8 Other specified diseases of biliary tract; M06.9 Rheumatoid arthritis, unspecified; N93.9 Abnormal uterine and vaginal bleeding, unspecified; Z79.899 Other long term (current) drug therapy; Z82.49 Family history of ischemic heart disease and other diseases of the circulatory system; Z90.49 Acquired absence of other specified parts of digestive tract